=== PATIENT | female | born 1990 | race Caucasian/White ===

== ENCOUNTER 2017-11-08 12:08 | Emergency (ER) ==
[2017-11-08 12:13] VITALS: BP 180/158; TEMP 97.9; BMI 28.0
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
[2017-11-08] MEDS ORDERED: CATAPRES PO STA (13:16)
[2017-11-08] MEDS ORDERED: ZESTORETIC 20-12.5 MG TAB PO STA (13:41)
--- NOTE | 2017-11-08 13:46 | DI ---
Exam: Single x-ray of the chest. Comparison: CTA chest performed 06/15/2015. Reason for exam: Hypertension. FINDINGS: No pneumothorax, pleural effusion, or focal consolidation. The cardiac silhouette is not enlarged. The imaged osseous structures appear grossly unremarkable without acute fracture. Impression: No acute cardiopulmonary process.
== END 2017-11-08 17:44 | disposition home or self-care (01) ==
LOC: ED 12:08
DX: I10 Essential (primary) hypertension (principal); R74.8 Abnormal levels of other serum enzymes; I51.7 Cardiomegaly; R79.89 Other specified abnormal findings of blood chemistry; R51 Headache; R42 Dizziness and giddiness; I50.9 Heart failure, unspecified; F17.210 Nicotine dependence, cigarettes, uncomplicated
CPT/HCPCS: 36415; 80053; 80306; 81001; 83880; 84484; 85025; 93005; 93010; 99283

== ENCOUNTER 2018-02-07 09:48 | Emergency (ER) ==
[2018-02-07] MEDS ORDERED: ZOFRAN 4 MG/2 ML IVP STA (09:56)
[2018-02-07] MEDS ORDERED: SODIUM CHLORIDE 1,000 ML IV STA (09:56)
[2018-02-07 09:58] VITALS: TEMP 97.1; BMI 25.7
[2018-02-07] MEDS ORDERED: POTASSIUM CHLORIDE PREMIX RUN 10 MEQ in PREMIX 100 ML WATER 1 BAG IV STA (11:21)
[2018-02-07] MEDS ORDERED: TRANDATE IVP STA ×2 (11:22→12:23)
[2018-02-07] MEDS ORDERED: POTASSIUM CHLORIDE PREMIX RUN 100 ML IV ONE (11:26)
--- NOTE | 2018-02-07 11:31 | CT ---
EXAM: CT of the chest without contrast History: Coughing and vomiting. Comparison: CT abdomen pelvis 02/07/2018, chest CT 06/15/2015 Technique: Multiplanar CT images through the thorax were obtained without the administration of IV c ontrast Findings: Heart size is normal. No pericardial effusion. No thoracic aortic aneurysm. No patholog ically enlarged thoracic lymph nodes. No consolidation. No pleural fluid and no pneumothorax. No angel ng masses or lung nodules. For details in the upper abdomen, please see dedicated CT abdomen pelvis done on the same day. No ac tianna osseous abnormalities. Impression: No acute intrathoracic process.
--- NOTE | 2018-02-07 11:44 | CT ---
EXAM: CT Abdomen without contrast. CT Pelvis without contrast. HISTORY: Abdominal pain. Intractable vomiting. COMPARISON: 06/15/2015. TECHNIQUE: Multiple axial images of the abdomen and pelvis were obtained without intravenous contras t. Images were reformatted in the sagittal and coronal plane. FINDINGS: Please note that evaluation of the abdominal and pelvic structures is limited due to lack of intravenous contrast. The lung bases are clear and the. The osseous structures are within normal limits for the patient's age. Gallbladder is absent. The liver, pancreas, spleen, adrenal glands, and kidneys demonstrate normal c ontour. No calcified renal stones or hydronephrosis detected. There is mild fat stranding surrounding the descending colon on axial images of the 45-49 and coronal images 26. 30 without wall thickening. Otherwise, the bowel is normal in course and caliber withou t evidence for obstruction or inflammatory process index is normal. Benign 1.7 x 1.3 cm left lateral peritoneal cyst on axial image 55 is stable. Urinary bladder is normal. Uterus demonstrates normal contour. Phleboliths seen in the pelvis. No free fluid or free air identified. Small fat-containi ng umbilical hernia is present. IMPRESSION: Mild ascending colitis.
--- NOTE | 2018-02-07 11:50 | CT ---
EXAM: CT of the head without contrast History: Headache. Technique: Multiplanar CT images through the head were obtained without the administration of IV con trast Findings: The visualized paranasal sinuses and mastoid air cells are clear in general. No acute prateek varial abnormalities. Intracranially the ventricular and cisternal spaces are normal in size, shape and configuration for a patient of this age. No dominant mass or midline shift. No hydrocephalous. No acute intracranial hemorrhage or abnormal extraaxial fluid collections. Impression: No acute intracranial process.
--- NOTE | 2018-02-07 12:35 | ED.PDOC ---
General ED Provider: Dr. MAYANK BENNETT Chief Complaint: Nausea/Vomiting Stated Complaint: nausea, vomiting, abdominal pain Time Seen by Physician: 09:53 (seen with nurses at bedside at all time neena and SHREE CAMILO ) Mode of Arrival: Wheelchair Information Source: Patient Exam Limitations: No limitations Referred to ED by: Other (HAS BEEN OFF MEDS AND NOT SEEN AN MD IN ALONG TIME ) Nursing and Triage Documentation Reviewed and Agree: Yes Does patient meet sepsis criteria?: No System Inflammatory Response Syndrome: Not Applicable Sepsis Protocol: For patient's 13 years and over: Temp is 96.8 and below OR 101 and greater Pulse >90 BPM Resp >20/minute Acutely Altered Mental Status Are patient's symptoms suggestive of a new infection, such as: -Pneumonia -Skin, Soft Tissue -Endocarditis -UTI -Bone, Joint Infection -Implantable Device -Acute Abdominal Infection -Wound Infection -Meningitis -Blood Stream Catheter Infection -Unknown GI Complaint Exam - Vomiting/Diarrhea Complaint/Exam Onset/Duration: 2 DAYS AGO Symptoms Are: Still present (INTERMS OF PROFOUND NAUSEA BUT NO VOMITING IN ED) Episodes of Vomiting over last 24 Hours: 10 Episodes of Diarrhea Over Last 24 Hours: 0 Initial Severity: Moderate Current Severity: None Character of Vomiting: Reports: Non-bilious Aggravating: Reports: None Alleviating: Reports: None Associated Signs and Symptoms: Reports: Abdominal pain, Cramping. Denies: Dizziness, Light-headedness, Melena, Hematemesis, Fever Last Oral Intake: THIS AM BUT VOMITED Last Bowel Movement: 1 DAY AGO Non-GI Risk Factors: Reports: Vomiting due to cardiac (EKG CHANES NOTED ST DEPRESSION 4,5,6, HIGH BLOOD PRESSURE SYSTOLIC IN 200'S) Surgical Obstruction Risk Factors: Reports: None Related Surgical History: Reports: Cholecystectomy Abdominal Findings: Absent: Abdominal distention, Unequal femoral pulses, Rebound tenderness, Peritoneal signs, McBurney's Point tender, CVA Tenderness, Hernia, Inguinal swelling Kussmaul Respirations Present: No Differential Diagnoses: Other (HYPERTENSIVE URGENCIES ) Review of Systems - Review Of Systems Constitutional: Reports: Malaise Eyes: Reports: No symptoms Ears, Nose, Mouth, Throat: Reports: No symptoms Respiratory: Reports: No symptoms Cardiac: Reports: No symptoms GI: Reports: Abdominal pain (EPIGASTRIC), Nausea, Poor appetite : Reports: No symptoms Musculoskeletal: Reports: No symptoms Skin: Reports: No symptoms Neurological: Reports: No symptoms Endocrine: Reports: No symptoms Hematologic/Lymphatic: Reports: No symptoms All Other Systems: Reviewed and Negative Past Medical History - Past Medical History Previously Healthy: No (HTN, Meth abuse, CHF) Endocrine: Reports: None Cardiovascular: Reports: Hypertension, CHF Respiratory: Reports: None Hematological: Reports: None Gastrointestinal: Reports: Other (HEP C POSTIVE ) Genitourinary: Reports: None Neuro/Psych: Reports: Depression, PTSD, Other (poisoning with rat poison in past ) Musculoskeletal: Reports: None Cancer: Reports: None Last Menstrual Period: 1 week ago - Surgical History General Surgical History: Reports: None - Family History Family History: Reports: Hypertension - Social History Smoking Status: Current every day smoker, Light tobacco smoker (FORMER IVDA / HEP C POSITIVE) Hx Substance Use: Yes (occ marijuana) Alcohol Screening: None Physical Exam - Physical Exam Appearance: Ill-appearing Ill-appearing: Moderate Eyes: BRAULIO, EOMI, Conjunctiva clear ENT: Dry mucosa Respiratory: Airway patent, Breath sounds clear, Breath sounds equal, Respirations nonlabored Cardiovascular: RRR, Pulses normal, No rub, No murmur GI/: Soft, Nontender, No masses, Bowel sounds normal, No Organomegaly Musculoskeletal: Normal strength, ROM intact, No edema, No calf tenderness Skin: Warm, Dry, Normal color Neurological: Sensation intact, Motor intact, Reflexes intact, Cranial nerves intact, Alert, Oriented Psychiatric: Affect appropriate, Mood appropriate Interpretation - Radiology Interpretation Radiology Interpretation By: Radiologist Radiology Results: No acute changes Exam Interpreted: CT Scan - Rubber Tester Rate: Normal Rhythm: Sinus Ectopy: None - EKG Interpretation Rate: Normal Rhythm: Sinus Ectopy: None [place]: NL (LVH, ST DEPRESSION 5, 6 AND III, AVF , BI ATRIAL ENLARGMENT, IFEROLATERAL WALL ISCHEMIA QT PROLONGATION) Time of EKG #2: 12:43 Rate: Normal Rhythm: Sinus Ectopy: None [place]: [place] (INF/LATERAL WALL ISCHEMIA NEW T WAVE INVERSION INV4) Procedures - IV/Art Line Insertion Location: LEFT E/J Type of Line: External Jugular Invasive Line/IV Catheter Gauge: 18 Number of Attempts: 1 (ONE ATTEMPT BY RAFATI LINE WORKING WELL) Blood Return Positive: Yes Invasive Line/IV Flushes Without Difficulty: Yes Re-Evaluation - Re-Evaluation Time of Re-Evaluation: 10:00 Status: Improved Vital Signs Stable: Yes Pain Level: 0 Appearance: NAD Lungs: Clear Skin: Warm and Dry Neuro: Alert and Oriented X3 CV: RRR (NO FURTHER VOMITING BUT B/P IS STILL HIGH) - Re-Evaluation Time of Re-Evaluation: 12:38 Status: Improved Vital Signs Stable: Yes (EXCEPT FOR B/P 203/131) Pain Level: 0 Appearance: NAD Skin: Warm and Dry Neuro: Alert and Oriented X3 CV: RRR Physician Notification - Case Discussed Physician Notified: CONOR BURCIAGA Time of Notification: 13:12 (TRANSFER ) Critical Care Note - Critical Care Note Total Time (mins): 120 (HYPOKALEMIA, QT PROLONGATION ISCHEMIA , WILL TRANSFER ) Course - Course Hematology/Chemistry: 02/07/18 10:40 02/07/18 10:40 Orders, Labs, Meds: Lab Review 02/07/18 02/07/18 02/07/18 10:40 10:40 10:40 WBC 10.24 H RBC 5.77 H Hgb 13.3 Hct 42.2 MCV 73.1 L MCH 23.1 L MCHC 31.5 L RDW Coeff of Anastasia 15.1 H Plt Count 287 Immature Gran % (Auto) 0.2 Neut % (Auto) 85.2 Lymph % (Auto) 9.4 L [place] % (Auto) 4.7 Eos % (Auto) 0.2 Baso % (Auto) 0.3 Immature Gran # (Auto) 0.0 Neut # (Auto) 8.7 H Lymph # (Auto) 1.0 [place] # (Auto) 0.5 Eos # (Auto) 0.0 Baso # (Auto) 0.0 Sodium 138 Potassium 2.8 L Chloride 100 Carbon Dioxide 26 Anion Gap 14.8 BUN 11 Creatinine 0.80 Estimated GFR (MDRD) 85.00 BUN/Creatinine Ratio 13.75 Glucose 102 Calcium 9.8 Total Bilirubin 1.1 AST 46 H ALT 43 Alkaline Phosphatase 106 H Total Protein 7.5 Albumin 3.5 Globulin 4.0 Albumin/Globulin Ratio 0.88 Amylase 51 Lipase 25 Serum , Qual Negative Orders Category Date Time Status EKG-(ED ONLY) Stat CARDIO 02/07/18 09:55 Ordered EKG-(ED ONLY) Stat CARDIO 02/07/18 12:27 Ordered NPO REMINDER: IMAGING ONCE CARE 02/07/18 09:56 Completed NPO REMINDER: IMAGING ONCE CARE 02/07/18 09:57 Completed ED IV/MEDIPORT/POWERPORT .ONCE EMERGENCY 02/07/18 09:55 Active AMYLASE Stat LAB 02/07/18 10:40 Completed CBC W/ AUTO DIFF Stat LAB 02/07/18 10:40 Completed COMPREHENSIVE METABOLIC PANEL Stat LAB 02/07/18 10:40 Completed CREATINE KINASE Stat LAB 02/07/18 12:27 Ordered LIPASE Stat LAB 02/07/18 10:40 Completed SERUM Stat LAB 02/07/18 10:40 Completed TROPONIN I Stat LAB 02/07/18 12:27 Ordered URINALYSIS C & S IF INDICATED Stat LAB 02/07/18 09:54 Uncollected URINE DRUG SCREEN (RAPID FOR ED) [DRUG SCREEN, URINE, LAB 02/07/18 12:26 Uncollected RAPID] Stat URINE DRUG SCREEN (RAPID FOR ED) [DRUG SCREEN, URINE, LAB 02/07/18 12:29 Uncollected RAPID] Stat 0.9 % Sodium Chloride [Saline Flush] MEDS 02/07/18 09:54 Active 1 syr IVF PRN PRN Labetalol HCl [Trandate] MEDS 02/07/18 11:22 Stat 20 mg IVP ONCE STA Labetalol HCl [Trandate] MEDS 02/07/18 12:23 Stat 40 mg IVP ONCE STA Ondansetron HCl/Pf [Zofran 4 mg/2 ml] MEDS 02/07/18 09:56 Discontinued 8 mg IVP ONCE STA Potassium Chloride [Potassium Chloride Premix Run] 10 MEDS 02/07/18 11:21 Ordered meq Premix 100 ml Water 1 bag IV ONCE Potassium Chloride [Potassium Chloride Premix Run] 100 MEDS 02/07/18 11:26 Discontinued ml IV .STK-MED Sodium Chloride 0.9% [Sodium Chloride] 1,000 ml MEDS 02/07/18 09:[address] ABDOMEN/PELVIS WO CONTRAST Stat RADS 02/07/18 10:[address] CHEST W/O CONTRAST Stat RADS 02/07/18 10:[address] HEAD W/O CONTRAST Stat RADS 02/07/18 11:21 Ordered Medications Generic Name Dose Route Start Last Admin Trade Name Freq PRN Reason Stop Dose Admin Sodium Chloride 1 syr 02/07/18 09:54 02/07/18 10:16 Saline Flush IVF 1 syr PRN PRN Administration To flush IV Discontinued Medications Generic Name Dose Route Start Last Admin Trade Name Freyeny PRN Reason Stop Dose Admin Sodium Chloride 1,000 mls @ 1,000 mls/hr 02/07/18 09:56 02/07/18 10:18 Sodium Chloride IV 02/07/18 10:55 1,000 mls/hr BOLUS STA Administration Potassium Chloride 10 meq/ 100 mls @ 100 mls/hr 02/07/18 11:21 02/07/18 11:44 Sterile Water IV 02/07/18 12:20 100 mls/hr ONCE STA Administration Labetalol HCl 20 mg 02/07/18 11:22 02/07/18 11:43 Trandate IVP 02/07/18 11:23 20 mg ONCE STA Administration Labetalol HCl 40 mg 02/07/18 12:23 02/07/18 13:03 Trandate IVP 02/07/18 12:24 40 mg ONCE STA Administration Ondansetron HCl 8 mg 02/07/18 09:56 02/07/18 10:10 Zofran 4 Mg/2 Ml IVP 02/07/18 09:57 8 mg ONCE STA Administration Vital Signs: Temp Pulse Resp BP Pulse Ox 02/07/18 11:18 98 H 16 219/133 H 99 02/07/18 09:49 97.1 F L 135 H 20 180/120 H 100 Departure - Departure Time of Disposition: 14:00 Disposition: TSF SHORT-TRM HOSP Discharge Problem: Nausea, Vomiting, Hypertensive urgency, Hypokalemia Instructions: Hypertensive Crisis (ED), Hypertension (ED) Condition: Good Pt referred to PMD for follow-up: Yes IPMP verified?: No Additional Instructions: Please call your Family Physician as soon as possible to schedule a follow-up appointment. Allergies/Adverse Reactions: Allergies divalproex sodium [From Depakote] Adverse Reaction (Verified 02/07/18 10:13) tramadol [From Ultram] Adverse Reaction (Verified 02/07/18 10:13) vancomycin Adverse Reaction (Verified 02/07/18 10:13) Home Medications: Ambulatory Orders 1 [No Reported Medications] 02/07/18 Disposition Discussed With: Patient
[2018-02-07] MEDS ORDERED: CARDENE-NACL 20 MG/200 ML SOLN 20 MG in PREMIX 200ML 0.86% SODIUM CHLORIDE 1 BAG IV SCH (13:30)
[2018-02-07 13:57] VITALS: BP 180/124
== END 2018-02-07 13:58 | disposition short-term general hospital (02) ==
LOC: ED 09:48
DX: E87.6 Hypokalemia (principal); R11.2 Nausea with vomiting, unspecified; I16.0 Hypertensive urgency; R10.9 Unspecified abdominal pain; Z91.14 Patient's other noncompliance with medication regimen; F17.210 Nicotine dependence, cigarettes, uncomplicated
CPT/HCPCS: 36415; 80053; 80306; 81001; 82150; 82550; 83690; 84484; 84703; 85025; 87086; 87186; 93005; 93010; 96361; 96365; 96366; 96375; 96376; 99285

== ENCOUNTER 2018-02-07 14:16 | Outpatient (CLI) ==
[2018-02-07 09:58] VITALS: BMI 25.7
== END 2018-02-07 14:17 | disposition home or self-care (01) ==
LOC: AMBL 14:16
PROVIDERS: ATTEND Internal Medicine
DX: I16.0 Hypertensive urgency (principal)

== ENCOUNTER 2018-03-16 04:49 | Emergency (ER) ==
[2018-03-16 04:57] VITALS: TEMP 97.4; BMI 27.4
[2018-03-16] MEDS ORDERED: CATAPRES PO STA (05:05)
[2018-03-16] MEDS ORDERED: ZESTRIL PO STA (05:05)
[2018-03-16] MEDS ORDERED: APRESOLINE PO STA (05:06)
[2018-03-16] MEDS ORDERED: LASIX IM STA (05:08)
[2018-03-16] MEDS ORDERED: NORCO 5-325 PO STA (05:21)
[2018-03-16 05:27] LABS: URINE PREGNANCY TEST NEGATIVE (NEGATIVE)
[2018-03-16] MEDS ORDERED: TRANDATE IVP STA (06:19)
--- NOTE | 2018-03-16 06:43 | ED.PDOC ---
General ED Provider: Dr. SAUL LINTON-ER Chief Complaint: Hypertension Stated Complaint: i have high blood pressure and have been out of my meds for a few days--my head hurts and franki had a stroke before Time Seen by Physician: 05:00 Mode of Arrival: Walk-In Information Source: Patient Exam Limitations: No limitations Nursing and Triage Documentation Reviewed and Agree: Yes Does patient meet sepsis criteria?: No System Inflammatory Response Syndrome: Not Applicable Sepsis Protocol: For patient's 13 years and over: Temp is 96.8 and below OR 101 and greater Pulse >90 BPM Resp >20/minute Acutely Altered Mental Status Are patient's symptoms suggestive of a new infection, such as: -Pneumonia -Skin, Soft Tissue -Endocarditis -UTI -Bone, Joint Infection -Implantable Device -Acute Abdominal Infection -Wound Infection -Meningitis -Blood Stream Catheter Infection -Unknown Cardiovascular Complaint Exam - Hypertension Complaint/Exam Onset/Duration: 1-2 days ago Symptoms Are: Still present Timing: Constant Reported B/P Prior to Arrival: 240/130 Aggravating: Reports: None Alleviating: Reports: None Associated Signs and Symptoms: Reports: Anxiety. Denies: Chest pain, Vision changes, Recent stress, Headache, Numbness, Tingling, Weakness, Dizziness, Short of air, Swelling Related History: Reports: Rx noncompliance Cardiac Risk Factors: Reports: Hypertension Recent Change in Medications: No A/V Nicking: No Papilledema Present: No JVD Present: No Carotid Bruit Present: No Femoral Pulses Bounding: No Differential Diagnoses: Hypertension Review of Systems - Review Of Systems Constitutional: Reports: No symptoms Eyes: Reports: No symptoms Ears, Nose, Mouth, Throat: Reports: No symptoms Respiratory: Reports: No symptoms Cardiac: Reports: No symptoms GI: Reports: No symptoms : Reports: No symptoms Musculoskeletal: Reports: No symptoms Skin: Reports: No symptoms Neurological: Reports: Headache Endocrine: Reports: No symptoms Hematologic/Lymphatic: Reports: No symptoms All Other Systems: Reviewed and Negative Past Medical History - Past Medical History Previously Healthy: No (HTN, Meth abuse, CHF) Endocrine: Reports: None Cardiovascular: Reports: Hypertension, CHF Respiratory: Reports: None Hematological: Reports: None Gastrointestinal: Reports: Other (HEP C POSTIVE ) Genitourinary: Reports: None Neuro/Psych: Reports: Depression, PTSD, Other (poisoning with rat poison in past ) Musculoskeletal: Reports: None Cancer: Reports: None Last Menstrual Period: 2 weeks - Surgical History General Surgical History: Reports: None - Family History Family History: Reports: Hypertension - Social History Smoking Status: Current every day smoker, Light tobacco smoker Hx Substance Use: Yes (occ marijuana) Alcohol Screening: None - Immunizations Tetanus Shot up to Date: Yes Physical Exam - Physical Exam Appearance: Well-appearing Pain Distress: Mild Eyes: BRAULIO, EOMI, Conjunctiva clear ENT: Ears normal, Nose normal, Oropharynx normal Neck: Supple Respiratory: Airway patent, Breath sounds clear, Breath sounds equal, Respirations nonlabored Cardiovascular: RRR, Pulses normal, No rub, No murmur GI/: Soft, Nontender, No masses, Bowel sounds normal, No Organomegaly Musculoskeletal: Normal strength, ROM intact, No edema, No calf tenderness Skin: Warm, Dry, Normal color Neurological: Sensation intact, Motor intact, Reflexes intact, Cranial nerves intact, Alert, Oriented Psychiatric: Affect appropriate, Mood appropriate Interpretation - Yarding Engineer Time of Yarding Engineer Interpretation: 06:44 Rate: Normal Rhythm: Sinus Ectopy: None Re-Evaluation - Re-Evaluation Time of Re-Evaluation: 06:44 Status: Improved (bp 130/90---ortega resolved--no chest pain) Vital Signs Stable: Yes Pain Level: 0 Appearance: NAD Lungs: Clear Skin: Warm and Dry Neuro: Alert and Oriented X3 CV: RRR Critical Care Note - Critical Care Note Total Time (mins): 0 Course - Course Hematology/Chemistry: 03/16/18 05:20 03/16/18 05:20 Orders, Labs, Meds: Lab Review 03/16/18 03/16/18 03/16/18 05:10 05:10 05:20 WBC 10.38 H RBC 6.24 H Hgb 14.7 Hct 46.9 MCV 75.2 L MCH 23.6 L MCHC 31.3 L RDW Coeff of Anastasia 18.6 H Plt Count 326 Immature Gran % (Auto) 0.1 Neut % (Auto) 70.4 Lymph % (Auto) 19.9 Posey % (Auto) 6.0 Eos % (Auto) 3.2 Baso % (Auto) 0.4 Immature Gran # (Auto) 0.0 Neut # (Auto) 7.3 H Lymph # (Auto) 2.1 Posey # (Auto) 0.6 Eos # (Auto) 0.3 Baso # (Auto) 0.0 Sodium Potassium Chloride Carbon Dioxide Anion Gap BUN Creatinine Estimated GFR (MDRD) BUN/Creatinine Ratio Glucose Calcium Total Bilirubin AST ALT Alkaline Phosphatase Total Protein Albumin Globulin Albumin/Globulin Ratio Urine Color Yellow Urine Clarity Clear Urine pH 7.0 Ur Specific [place] 1.020 Urine Protein 3+ Urine Glucose (UA) Negative Urine Ketones Negative Urine Blood Trace-intact Urine Nitrite Negative Urine Bilirubin Negative Urine Urobilinogen 0.2 Ur Leukocyte Esterase Negative Urine Microscopic RBC 2-5 Urine Microscopic WBC 5-10 Ur Squamous Epith Cells 10-20 Urine Bacteria 1+ Urine Mucus Trace Urine Test Negative 03/16/18 05:20 WBC RBC Hgb Hct MCV MCH MCHC RDW Coeff of Anastasia Plt Count Immature Gran % (Auto) Neut % (Auto) Lymph % (Auto) Posey % (Auto) Eos % (Auto) Baso % (Auto) Immature Gran # (Auto) Neut # (Auto) Lymph # (Auto) Posey # (Auto) Eos # (Auto) Baso # (Auto) Sodium 138.2 Potassium 3.57 Chloride 104.3 Carbon Dioxide 24.2 Anion Gap 13.27 BUN 9.9 Creatinine 0.83 Estimated GFR (MDRD) 81.00 BUN/Creatinine Ratio 11.92 Glucose 123.2 H Calcium 9.69 Total Bilirubin 0.37 AST 51.0 H ALT 29.8 Alkaline Phosphatase 108.5 Total Protein 8.69 H Albumin 4.65 Globulin 4.04 Albumin/Globulin Ratio 1.15 Urine Color Urine Clarity Urine pH Ur Specific [place] Urine Protein Urine Glucose (UA) Urine Ketones Urine Blood Urine Nitrite Urine Bilirubin Urine Urobilinogen Ur Leukocyte Esterase Urine Microscopic RBC Urine Microscopic WBC Ur Squamous Epith Cells Urine Bacteria Urine Mucus Urine Test Orders Category Date Time Status Yarding Engineer [ED DELIVERY LEAD APPLIED] .ONCE EMERGENCY 03/16/18 05:07 Active IV [ED IV/MEDIPORT/POWERPORT] .ONCE EMERGENCY 03/16/18 06:19 Active CBC W/ AUTO DIFF Stat LAB 03/16/18 05:20 Completed CMP [COMPREHENSIVE METABOLIC PANEL] Stat LAB 03/16/18 05:20 Completed URINALYSIS C & S IF INDICATED Stat LAB 03/16/18 05:10 Completed URINE CULTURE Stat LAB 03/16/18 05:10 Received URINE Stat LAB 03/16/18 05:10 Completed 0.9 % Sodium Chloride [Saline Flush] MEDS 03/16/18 06:19 Ordered 1 syr IVF PRN PRN Clonidine HCl [Catapres] MEDS 03/16/18 05:05 Discontinued 0.2 mg PO ONCE STA Furosemide [Lasix] MEDS 03/16/18 05:08 Discontinued 40 mg IM ONCE STA Hydralazine HCl [Apresoline] MEDS 03/16/18 05:06 Stop Req 50 mg PO ONCE STA Hydrocodone Bit/Acetaminophen [[place] 5-325] MEDS 03/16/18 05:21 Discontinued 1 tab PO ONCE STA Labetalol HCl [Trandate] MEDS 03/16/18 06:19 Discontinued 20 mg IVP ONCE STA Lisinopril [Zestril] MEDS 03/16/18 05:05 Discontinued 10 mg PO ONCE STA Medications Generic Name Dose Route Start Last Admin Trade Name Freq PRN Reason Stop Dose Admin Sodium Chloride 1 syr 03/16/18 06:19 03/16/18 06:37 Saline Flush IVF 1 syr PRN PRN Administration To flush IV Discontinued Medications Generic Name Dose Route Start Last Admin Trade Name Freq PRN Reason Stop Dose Admin Hydrocodone Bitart/Acetaminophen 1 tab 03/16/18 05:21 03/16/18 05:31 [place] 5-325 PO 03/16/18 05:22 1 tab ONCE STA Administration Clonidine 0.2 mg 03/16/18 05:05 03/16/18 05:26 Catapres PO 03/16/18 05:06 0.2 mg ONCE STA Administration Furosemide 40 mg 03/16/18 05:08 03/16/18 05:32 Lasix IM 03/16/18 05:09 40 mg ONCE STA Administration Hydralazine HCl 50 mg 03/16/18 05:06 03/16/18 05:26 Apresoline PO 03/16/18 05:07 50 mg ONCE STA Administration Labetalol HCl 20 mg 03/16/18 06:19 03/16/18 06:32 Trandate IVP 03/16/18 06:20 20 mg ONCE STA Administration Lisinopril 10 mg 03/16/18 05:05 03/16/18 05:26 Zestril PO 03/16/18 05:06 10 mg ONCE STA Administration she declines ekg and ct head "they cost too much" Vital Signs: Temp Pulse Resp BP Pulse Ox 03/16/18 04:51 97.4 F L 115 H 20 242/168 H 97 TORI Risk Score TORI Risk Score: Risk Score Odds of by 30D 0 0.1 (0.1-0.2) 1 0.3 (0.2-0.3) 2 0.4 (0.3-0.5) 3 0.7 (0.6-0.9) 4 1.2 (1.0-1.5) 5 2.2 (1.9-2.6) 6 3.0 (2.5-3.6) 7 4.8 (3.8-6.1) Departure - Departure Time of Disposition: 06:45 Disposition: HOME SELF-CARE Discharge Problem: HTN (hypertension) Qualifiers: Hypertension type: unspecified Qualified Code(s): I10 - Essential (primary) hypertension Proteinuria Qualifiers: Proteinuria type: unspecified Qualified Code(s): R80.9 - Proteinuria, unspecified Instructions: Hypertensive Crisis (ED) Condition: Fair Pt referred to PMD for follow-up: Yes IPMP verified?: No Additional Instructions: resume bp meds from home--talk to pcp about getting 24hr urine and ?referral to nephrology Allergies/Adverse Reactions: Allergies divalproex sodium [From Depakote] Adverse Reaction (Verified 02/07/18 10:13) tramadol [From Ultram] Adverse Reaction (Verified 02/07/18 10:13) vancomycin Adverse Reaction (Verified 02/07/18 10:13) Home Medications: Ambulatory Orders Clonidine HCl 0.2 mg PO BID 03/16/18 Hydrochlorothiazide 12.5 mg PO DAILY 03/16/18 Lisinopril 10 mg PO DAILY 03/16/18
--- NOTE | 2018-03-16 07:36 | CT ---
EXAM: CT Head HISTORY: Headache, elevated blood pressure COMPARISON: 02/07/2018 TECHNIQUE: CT head performed without contrast FINDINGS: There is no mass effect, midline shift, or intracranial hemmorhage. Keane white differenti ation is preserved. There is no extra-axial collection. The ventricles, sulci, and basal cisterns a re patent and symmetric. Mild prominence of the basilar tip on image 11. There is no depressed shreyas rial fracture. The mastoid air cells are clear. The visualized paranasal sinuses are clear. IMPRESSION: 1. No acute intracranial abnormality. 2. Mild prominence of the basilar tip may relate to volume averaging artifact; however, aneurysm can not be excluded. Recommend correlation with CT angiography head. Findings called to Dr. Johnston 7:30 a.m. 02/13/2018.
[2018-03-16 09:24] VITALS: BP 114/75
== END 2018-03-16 09:10 | disposition home or self-care (01) ==
LOC: ED 04:49
DX: I16.9 Hypertensive crisis, unspecified (principal); R80.9 Proteinuria, unspecified; R51 Headache; Z86.73 Personal history of transient ischemic attack (TIA), and cerebral infarction without residual deficits; Z91.14 Patient's other noncompliance with medication regimen; F17.210 Nicotine dependence, cigarettes, uncomplicated
CPT/HCPCS: 36415; 80053; 81001; 81025; 85025; 87086; 93005; 93010; 96372; 96374; 99283

== ENCOUNTER 2018-04-22 09:27 | Emergency (ER) ==
[2018-04-22 09:31] VITALS: BP 159/121; TEMP 97.5; BMI 29.1
[2018-04-22] MEDS ORDERED: GI COCKTAIL PO STA (09:43)
--- NOTE | 2018-04-22 09:46 | ED.PDOC ---
General ED Provider: Dr. SAUL PEREZ MD Chief Complaint: Respiratory Complaint Stated Complaint: hurts when i breath in and in my chest abdomen area3 Time Seen by Physician: 09:45 Mode of Arrival: Walk-In Information Source: Patient Referred to ED by: Other Nursing and Triage Documentation Reviewed and Agree: Yes Does patient meet sepsis criteria?: No If yes, has appropriate treatment been initiated?: Yes System Inflammatory Response Syndrome: Not Applicable Sepsis Protocol: For patient's 13 years and over: Temp is 96.8 and below OR 101 and greater Pulse >90 BPM Resp >20/minute Acutely Altered Mental Status Are patient's symptoms suggestive of a new infection, such as: -Pneumonia -Skin, Soft Tissue -Endocarditis -UTI -Bone, Joint Infection -Implantable Device -Acute Abdominal Infection -Wound Infection -Meningitis -Blood Stream Catheter Infection -Unknown Respiratory Complaint Exam - Respiratory Complaint/Exam Onset/Duration: few days Symptoms Are: Still present Timing: Intermittent Initial Severity: Mild Current Severity: Moderate Location: Chest Aggravating: Reports: Deep breaths Alleviating: Reports: Upright position History of Healthcare-Acquired Pneumonia: No Related Surgical History: Reports: None Pulmonary Embolism Risk Factors: Smoking Cardiac Risk Factors: Reports: Hypertension Tuberculosis Risk Factors: Reports: None Status Asthmaticus Risk Factors: Reports: None Home Oxygen Use: No Recent Stress Test: No Recent Echo/LV Function: No Current Antibiotic Use: No Current Asthma Medication Use: No Respiratory Distress: Mild Dysphagia Present: No Stridor Present: No JVD Present: No Accessory Muscle Use: No Retractions: Not Present Diminished Breath Sounds: No Kussmaul Respirations: No Differential Diagnoses: Asthma, Chest Wall Pain, Lower Resp. Infection Non-Traumatic Chest Pain Syncope: EKG Performed Review of Systems - Review Of Systems Constitutional: Reports: No symptoms Eyes: Reports: No symptoms Ears, Nose, Mouth, Throat: Reports: No symptoms Respiratory: Reports: No symptoms Cardiac: Reports: No symptoms GI: Reports: No symptoms : Reports: No symptoms Musculoskeletal: Reports: No symptoms Skin: Reports: No symptoms Neurological: Reports: No symptoms Endocrine: Reports: No symptoms Hematologic/Lymphatic: Reports: No symptoms All Other Systems: Reviewed and Negative Past Medical History - Past Medical History Previously Healthy: No (HTN, Meth abuse, CHF) Endocrine: Reports: None Cardiovascular: Reports: Hypertension, CHF Respiratory: Reports: None Hematological: Reports: None Gastrointestinal: Reports: Other (HEP C POSTIVE ) Genitourinary: Reports: None Neuro/Psych: Reports: Depression, PTSD, Other (poisoning with rat poison in past ) Musculoskeletal: Reports: None Cancer: Reports: None Last Menstrual Period: now - Surgical History General Surgical History: Reports: None - Family History Family History: Reports: Hypertension - Social History Smoking Status: Current every day smoker, Light tobacco smoker Hx Substance Use: Yes (occ marijuana) Alcohol Screening: None Physical Exam - Physical Exam Appearance: Well-appearing, No pain distress, Well-nourished, Thin Ill-appearing: Mild Pain Distress: None Eyes: BRAULIO ENT: Ears normal, Nose normal, Oropharynx normal Respiratory: Airway patent, Breath sounds clear, Breath sounds equal, Respirations nonlabored Cardiovascular: RRR, Pulses normal, No rub, No murmur GI/: Soft, Nontender, No masses, Bowel sounds normal, No Organomegaly Musculoskeletal: Normal strength, ROM intact, No edema, No calf tenderness Skin: Warm, Dry, Normal color Neurological: Sensation intact, Motor intact, Reflexes intact, Cranial nerves intact, Alert, Oriented Psychiatric: Affect appropriate, Mood appropriate Critical Care Note - Critical Care Note Total Time (mins): 0 Course - Course Orders, Labs, Meds: Orders Category Date Time Status EKG-(ED ONLY) Stat CARDIO 04/22/18 09:41 Ordered Ketorolac Tromethamine [Toradol] MEDS 04/22/18 10:52 Discontinued 60 mg IM ONCE STA Ketorolac Tromethamine [Toradol] MEDS 04/22/18 11:54 Discontinued 60 mg IM ONCE STA Lisinopril [Zestril] MEDS 04/22/18 09:50 Discontinued 10 mg PO ONCE STA Mag-Al Plus//Lidocaine [Gi Cocktail] MEDS 04/22/18 09:43 Discontinued 30 ml PO ONCE STA CXR [CHEST, 2 VIEWS PA & LAT] Stat RADS 04/22/18 09:42 Completed RIBS, UNILATERAL LEFT Stat RADS 04/22/18 11:54 Ordered Medications Discontinued Medications Generic Name Dose Route Start Last Admin Trade Name Freq PRN Reason Stop Dose Admin Al Hydroxide/Mg Hydroxide 30 ml 04/22/18 09:43 04/22/18 09:56 Gi Cocktail PO 04/22/18 09:44 30 ml ONCE STA Administration Ketorolac Tromethamine 60 mg 04/22/18 10:52 04/22/18 11:01 Toradol IM 04/22/18 10:53 60 mg ONCE STA Administration Ketorolac Tromethamine 60 mg 04/22/18 11:54 Toradol IM 04/22/18 11:55 ONCE STA Lisinopril 10 mg 04/22/18 09:50 04/22/18 09:55 Zestril PO 04/22/18 09:51 10 mg ONCE STA Administration Vital Signs: Temp Pulse Resp BP Pulse Ox 04/22/18 09:28 97.5 F L 84 20 159/121 H 96 Departure - Departure Time of Disposition: 11:00 Disposition: HOME SELF-CARE Discharge Problem: Chest wall pain Instructions: Chest Wall Pain (ED) Condition: Stable Pt referred to PMD for follow-up: Yes IPMP verified?: No Allergies/Adverse Reactions: Allergies divalproex sodium [From Depakote] Adverse Reaction (Verified 04/22/18 09:34) tramadol [From Ultram] Adverse Reaction (Verified 04/22/18 09:34) vancomycin Adverse Reaction (Verified 04/22/18 09:34) Home Medications: Ambulatory Orders Clonidine HCl 0.2 mg PO BID 03/16/18 Hydrochlorothiazide 25 mg PO DAILY 03/16/18 Lisinopril 10 mg PO DAILY 03/16/18 Transfer Form Completed: No Disposition Discussed With: Patient
[2018-04-22] MEDS ORDERED: ZESTRIL PO STA (09:50)
--- NOTE | 2018-04-22 10:37 | DI ---
EXAM: CHEST FRONTAL AND LATERAL VIEWS HISTORY: Pain with inspiration. COMPARISON: 11/08/2017 FINDINGS: Heart size and mediastinal contour within normal limits. No acute infiltrates. Normal vascularity with no pleural fluid or pneumothorax. The bony thorax has no acute finding. IMPRESSION: No acute process.
[2018-04-22] MEDS ORDERED: TORADOL IM STA ×2 (10:52→11:54)
== END 2018-04-22 12:38 | disposition home or self-care (01) ==
LOC: ED 09:27
DX: R07.89 Other chest pain (principal); F17.210 Nicotine dependence, cigarettes, uncomplicated; I10 Essential (primary) hypertension
CPT/HCPCS: 93005; 93010; 96372; 99283

== ENCOUNTER 2018-05-07 18:03 | Inpatient (IN) ==
[2018-05-07] MEDS ORDERED: CATAPRES PO STA (18:37)
--- NOTE | 2018-05-07 18:40 | ED.PDOC ---
General ED Provider: Dr. SAUL PAVON Chief Complaint: Hypertension Stated Complaint: Headache and vomiting. Severely Elevated BP. Out of meds for a week. Missed Drs Apt and could not get refills Time Seen by Physician: 18:15 Mode of Arrival: Walk-In Information Source: Patient Exam Limitations: No limitations Nursing and Triage Documentation Reviewed and Agree: Yes Does patient meet sepsis criteria?: No System Inflammatory Response Syndrome: Not Applicable Sepsis Protocol: For patient's 13 years and over: Temp is 96.8 and below OR 101 and greater Pulse >90 BPM Resp >20/minute Acutely Altered Mental Status Are patient's symptoms suggestive of a new infection, such as: -Pneumonia -Skin, Soft Tissue -Endocarditis -UTI -Bone, Joint Infection -Implantable Device -Acute Abdominal Infection -Wound Infection -Meningitis -Blood Stream Catheter Infection -Unknown Cardiovascular Complaint Exam - Hypertension Complaint/Exam Onset/Duration: 2 days Symptoms Are: Still present Timing: Constant Reported B/P Prior to Arrival: >250/150 Aggravating: Reports: Exertion Alleviating: Reports: None Associated Signs and Symptoms: Reports: Anxiety, Recent stress, Headache, Dizziness Related History: Reports: Similar episode, Other (Hx cerebral aneurysm) Cardiac Risk Factors: Reports: Hypertension, Smoking, Elevated lipids, Family history Recent Change in Medications: Yes Carotid Bruit Present: No Femoral Pulses Bounding: No Differential Diagnoses: Hypertensive Crisis Review of Systems - Review Of Systems Constitutional: Reports: No symptoms Eyes: Reports: No symptoms Ears, Nose, Mouth, Throat: Reports: No symptoms Respiratory: Reports: No symptoms Cardiac: Reports: Lightheadedness GI: Reports: No symptoms : Reports: No symptoms Musculoskeletal: Reports: No symptoms Skin: Reports: No symptoms Neurological: Reports: Headache Endocrine: Reports: No symptoms Hematologic/Lymphatic: Reports: No symptoms All Other Systems: Reviewed and Negative Past Medical History - Past Medical History Previously Healthy: No (HTN, Meth abuse, CHF) Endocrine: Reports: None Cardiovascular: Reports: Hypertension, CHF Respiratory: Reports: None Hematological: Reports: None Gastrointestinal: Reports: Other (HEP C POSTIVE ) Genitourinary: Reports: None Neuro/Psych: Reports: Depression, PTSD, Other (poisoning with rat poison in past ) Musculoskeletal: Reports: None Cancer: Reports: None Last Menstrual Period: 3 weeks ago - Surgical History General Surgical History: Reports: None - Family History Family History: Reports: Hypertension - Social History Smoking Status: Current every day smoker, Light tobacco smoker Hx Substance Use: Yes (occ marijuana) Alcohol Screening: None Physical Exam - Physical Exam Appearance: Ill-appearing, Well-nourished Ill-appearing: Moderate Pain Distress: Severe Eyes: BRAULIO, EOMI, Conjunctiva clear ENT: Ears normal, Nose normal, Oropharynx normal Neck: Supple Respiratory: Airway patent, Breath sounds clear, Breath sounds equal, Respirations nonlabored Cardiovascular: RRR, Pulses normal, No rub, No murmur GI/: Soft, Nontender, No masses, Bowel sounds normal, No Organomegaly Musculoskeletal: Normal strength, ROM intact, No edema, No calf tenderness Skin: Warm, Dry, Normal color Neurological: Sensation intact, Motor intact, Reflexes intact, Cranial nerves intact, Alert, Oriented Psychiatric: Affect appropriate, Mood appropriate Physician Notification - Case Discussed Physician Notified: Dr Lagos hospitalist-Discussed pts HTN Crisis and tx administered Time of Notification: 19:50 (Discussed case-agrees to admit-ICU) Critical Care Note - Critical Care Note Total Time (mins): 60 Course - Course Hematology/Chemistry: 05/07/18 18:40 05/07/18 18:40 Orders, Labs, Meds: Lab Review 05/07/18 05/07/18 05/07/18 18:39 18:39 18:40 WBC 8.45 RBC 5.07 Hgb 12.7 Hct 39.8 MCV 78.5 L MCH 25.0 L MCHC 31.9 RDW Coeff of Anastasia 16.0 H Plt Count 402 Immature Gran % (Auto) 0.1 Neut % (Auto) 63.1 Lymph % (Auto) 26.5 [place] % (Auto) 8.5 Eos % (Auto) 1.2 Baso % (Auto) 0.6 Immature Gran # (Auto) 0.0 Neut # (Auto) 5.3 Lymph # (Auto) 2.2 [place] # (Auto) 0.7 Eos # (Auto) 0.1 Baso # (Auto) 0.1 Sodium Potassium Chloride Carbon Dioxide Anion Gap BUN Creatinine Estimated GFR (MDRD) BUN/Creatinine Ratio Glucose Calcium Total Bilirubin AST ALT Alkaline Phosphatase Troponin I Total Protein Albumin Globulin Albumin/Globulin Ratio Urine Color Yellow Urine Clarity Clear Urine pH 7.5 Ur Specific [place] 1.015 Urine Protein Negative Urine Glucose (UA) Negative Urine Ketones Negative Urine Blood Negative Urine Nitrite Negative Urine Bilirubin Negative Urine Urobilinogen 0.2 Ur Leukocyte Esterase Negative Urine Opiates Screen Negative Ur Oxycodone Screen Negative Urine Methadone Screen Negative Ur Propoxyphene Screen Negative Ur Barbiturates Screen Negative U Tricyclic Antidepress Negative Ur Phencyclidine Scrn Negative Ur Amphetamine Screen Positive U Methamphetamines Scrn Negative U Benzodiazepines Scrn Negative Urine Cocaine Screen Negative U Cannabinoids Screen Negative 05/07/18 18:40 WBC RBC Hgb Hct MCV MCH MCHC RDW Coeff of Anastasia Plt Count Immature Gran % (Auto) Neut % (Auto) Lymph % (Auto) [place] % (Auto) Eos % (Auto) Baso % (Auto) Immature Gran # (Auto) Neut # (Auto) Lymph # (Auto) [place] # (Auto) Eos # (Auto) Baso # (Auto) Sodium 136.6 L Potassium 3.37 L Chloride 104.1 Carbon Dioxide 26.7 Anion Gap 9.17 BUN 15.1 Creatinine 0.87 Estimated GFR (MDRD) 77.00 BUN/Creatinine Ratio 17.35 Glucose 94.3 Calcium 9.22 Total Bilirubin 0.29 AST 33.2 ALT 19.4 Alkaline Phosphatase 103.3 Troponin I 0.022 Total Protein 7.82 Albumin 4.20 Globulin 3.62 Albumin/Globulin Ratio 1.16 Urine Color Urine Clarity Urine pH Ur Specific [place] Urine Protein Urine Glucose (UA) Urine Ketones Urine Blood Urine Nitrite Urine Bilirubin Urine Urobilinogen Ur Leukocyte Esterase Urine Opiates Screen Ur Oxycodone Screen Urine Methadone Screen Ur Propoxyphene Screen Ur Barbiturates Screen U Tricyclic Antidepress Ur Phencyclidine Scrn Ur Amphetamine Screen U Methamphetamines Scrn U Benzodiazepines Scrn Urine Cocaine Screen U Cannabinoids Screen Orders Category Date Time Status EKG-(ED ONLY) Stat CARDIO 05/07/18 18:35 Completed VITAL SIGNS Q15MIN CARE 05/07/18 18:35 Active CBC W/ AUTO DIFF Stat LAB 05/07/18 18:40 Completed CMP [COMPREHENSIVE METABOLIC PANEL] Stat LAB 05/07/18 18:40 Completed TROPONIN I Stat LAB 05/07/18 18:40 Completed UA [URINALYSIS C & S IF INDICATED] Stat LAB 05/07/18 18:39 Completed URINE DRUG SCREEN (RAPID FOR ED) [DRUG SCREEN, URINE, LAB 05/07/18 18:39 Completed RAPID] Stat 0.9 % Sodium Chloride [Premix 200Ml 0.86% Sodium MEDS 05/07/18 19:00 Ordered Chloride] 1 bag Nicardipine in NaCl, Iso-Osm [Cardene-NaCl 20 mg/200 ml Soln] 20 mg IV 5 mg/hr 0.9 % Sodium Chloride [Saline Flush] MEDS 05/07/18 18:35 Ordered 1 syr IVF PRN PRN Clonidine HCl [Catapres] MEDS 05/07/18 18:37 Discontinued 0.2 mg PO ONCE STA Diazepam Syringe [Valium Syringe] MEDS 05/07/18 19:01 Discontinued 2 mg IVP ONCE STA Diazepam [Valium] MEDS 05/07/18 19:04 Discontinued 5 mg PO ONCE STA Morphine Sulfate [Morphine 4 mg/ml Syringe] MEDS 05/07/18 19:11 Discontinued 4 mg .ROUTE .STK-MED ONE Morphine Sulfate [Morphine 4 mg/ml Vial] MEDS 05/07/18 19:02 Discontinued 4 mg IVP ONCE STA Nicardipine in NaCl, Iso-Osm [Cardene-NaCl 20 mg/200 ml MEDS 05/07/18 19:09 Discontinued Soln] 200 ml IV .STK-MED Medications Generic Name Dose Route Start Last Admin Trade Name Freq PRN Reason Stop Dose Admin Nicardipine/Sodium Chloride 20 200 mls @ 50 mls/hr 05/07/18 19:00 05/07/18 19 :23 mg/ Sodium Chloride IV 5 mg/hr .Q4H ARMOND 50 mls/hr Administration Protocol 5 MG/HR Sodium Chloride 1 syr 05/07/18 18:35 05/07/18 18:42 Saline Flush IVF 1 syr PRN PRN Administration To flush IV Discontinued Medications Generic Name Dose Route Start Last Admin Trade Name Freq PRN Reason Stop Dose Admin Clonidine 0.2 mg 05/07/18 18:37 05/07/18 18:43 Catapres PO 05/07/18 18:38 0.2 mg ONCE STA Administration Diazepam 2 mg 05/07/18 19:01 05/07/18 19:17 Valium Syringe IVP 05/07/18 19:02 Not Given ONCE STA Diazepam 5 mg 05/07/18 19:04 05/07/18 19:16 Valium PO 05/07/18 19:05 5 mg ONCE STA Administration Morphine Sulfate 4 mg 05/07/18 19:02 05/07/18 19:31 Morphine 4 Mg/Ml Vial IVP 05/07/18 19:03 Not Given ONCE STA Vital Signs: Temp Pulse Resp BP Pulse Ox 05/07/18 19:32 94 H 20 234/152 H 05/07/18 19:17 86 18 254/179 H 100 05/07/18 19:03 80 17 247/161 H 100 05/07/18 18:41 84 15 238/157 H 97 05/07/18 18:04 98.7 F 95 H 20 249/163 H 99 TORI Risk Score TORI Risk Score: Risk Score Odds of by 30D 0 0.1 (0.1-0.2) 1 0.3 (0.2-0.3) 2 0.4 (0.3-0.5) 3 0.7 (0.6-0.9) 4 1.2 (1.0-1.5) 5 2.2 (1.9-2.6) 6 3.0 (2.5-3.6) 7 4.8 (3.8-6.1) Departure - Departure Time of Disposition: 20:10 Disposition: ADMITTED INPATIENT Discharge Problem: Hypertensive crisis Condition: Stable Pt referred to PMD for follow-up: Yes IPMP verified?: No Allergies/Adverse Reactions: Allergies divalproex sodium [From Depakote] Adverse Reaction (Verified 05/07/18 18:12) tramadol [From Ultram] Adverse Reaction (Verified 05/07/18 18:12) vancomycin Adverse Reaction (Verified 05/07/18 18:12) Home Medications: Ambulatory Orders Clonidine HCl 0.2 mg PO BID 03/16/18 Hydrochlorothiazide 25 mg PO DAILY 03/16/18 Lisinopril 10 mg PO DAILY 03/16/18 Disposition Discussed With: Patient Time Seen by Provider: 05/07/18 18:15 Objective: Vitals: T=98.7 F, P=84, R=15, UV=862/157, SPO2=97 HEENT: [] Neck: [] Lungs: [] CVS: [] Abdomen: [] Extremities: [] Neurological: [] Skin: [] Lab/Tests/Diagnostic Imaging: [] Additional Comments Additional Comments: Denies use of Amphetamines. States took OTC meds
[2018-05-07] MEDS ORDERED: CARDENE-NACL 20 MG/200 ML SOLN 20 MG in PREMIX 200ML 0.86% SODIUM CHLORIDE 1 BAG IV SCH (19:00)
[2018-05-07] MEDS ORDERED: VALIUM SYRINGE IVP STA (19:01)
[2018-05-07] MEDS ORDERED: MORPHINE 4 MG/ML VIAL IVP STA (19:02)
[2018-05-07] MEDS ORDERED: VALIUM PO STA (19:04)
[2018-05-07] MEDS ORDERED: CARDENE-NACL 20 MG/200 ML SOLN 200 ML IV ONE ×2 (19:09→23:03)
[2018-05-07] MEDS ORDERED: MORPHINE 4 MG/ML SYRINGE ONE (19:11)
[2018-05-07] MEDS ORDERED: NON-FORMULARY MEDICATION (Clonidine Hcl [Clonidine Hcl] 0.2 MG) PO SCH (21:00)
[2018-05-07 22:55] VITALS: BMI 27.8
[2018-05-07 23:02] LABS: URINE PREGNANCY TEST NEGATIVE (NEGATIVE)
[2018-05-07] MEDS ORDERED: CATAPRES ONE (23:03)
[2018-05-07] MEDS: CARDENE-NACL 20 MG/200 ML SOLN 20 MG in PREMIX 200ML 0.86% SODIUM CHLORIDE 1 BAG IV SCH (23:08)
[2018-05-07] MEDS: ZESTRIL PO SCH (23:09)
[2018-05-07] MEDS: MORPHINE 4 MG/ML VIAL IVP PRN (23:10)
--- NOTE | 2018-05-07 23:45 | PCM ---
- Chief Complaint Chief Complaint: HTN Urgency - History of Present Illness History of Present Illness: 27 yr old WF without a current PCP presented to ER today at 18:[address] velázquez. She presented with and vomiting, severely elevated BP and has been out of her BP meds for 1 week. Missed Provider appt and could not get refills. Symptoms present 48 hours, worsening, constant , rated at 8/10 generalized, localized more to right orthodoxy, +Photophobia, phonophobia, + Nausea. She arrived in ER with BP >250/150. BP worse with exertion. No alleviating factors without her clonidine 0.2BID (PATIENT AND I DISCUSSED REBOUND HTN). Anxiety, stressors, , dizzines, similar episodes historically. ?Cerbral aneursym of some form. She has HTN, smokes cig, elevated lipids, family history of migraine/. Presents today with HTN crisis. ROS reviewed, lightheaded, , no vision changes. History of meth use, history of ?CHF. She has ?Hep C+. Depression, PTSD, poison w/ rat poison in past. LMP 3 weeks ago, sexually active with current known partner. No abnl bleeding, no vaginal discharge. OCC THC. Exam from [facility]. Contacted me 19:50 and I admitted to SCU. Labs reviewed WBC 8.45, hgb 12., plt 402. Sodium 136.6 K+ 3.37, cl 104.1 , BUN 15.1, Cr 0.87 and glucose 94.3. UDS + for amp. She notes allergies and using decongestant. It is possible as meth was negative. History of meth, reports no use in 3 years. Numerous repeat BP checked while in ER. 249/163, 138/ 157, 247/161, 254/179, 234/152 by 19:32. ER checked EKG, started IV, checked troponin (negative), UA, UDS, started her on cardene drip at 5mg/hr, clonidine 0.2, [id number] PO, MS 4mg q 6, and I was contacted. Patient has right temporal and has this same when she has her BP elevations. She does not check at home but knows when it is high based on her symptoms. WE reviewed the issues with clonidine, she was restarted on this by me, I also restarted her lisinopril and HCTZ tonight and will back down to 1/2 drip rate 2.5mg/hr when she hits <160/90 and then to turn off the drip if <130/80 at 2.5mg/hour. CT head to be completed tonight to make sure no bleed. She wants to talk about OCP , we will address as OP. She notes is concerning, I would like to avoid NSAIDS for now secondary to possible increase in BP and bleeding/stroke risk, especially due to the crisis level BP. Admitted as inpatient, with expected length of stay of 1-2 days. She could not be treated as outpatient with this BP and I expect her to improve drastically over next 24 hours with inpatient specialized care in SCU. She will have regular vitals/telemetry, we will check CT stat as she has some altered status. NO test was ordered by ER, I will add this to make sure she is not . No PCP, not checking BP. No way to check thi sat home. She knows it is abnl based on and symptoms. WE reveiwed meds, she has had 48 worsening, a few bouts of emesis. Tolerating PO liquids okay, but no appetite. BMI is mildly overweight. No sick contacts, no recent travel. - Review of Systems Constitutional: No: fever, chills, weakness, sweats, fatigue, loss of appetite, other Eyes: photophobia. No: blurred vision, double-vision, discharge, itching, pain , redness, other Ears: No: pain, bleeding, drainage, ringing, hearing loss, other Nose: No: bleeding, congestion, discharge, other Throat: No: pain, swelling, voice change, other Mouth: No: bleeding, pain, swelling, other Respiratory: No: cough, shortness of air, wheeze, hemoptysis, pain with breathing, other Cardiovascular: palpitations. No: chest pain, left arm pain, diaphoresis, PND, orthopnea, edema, syncope, other Gastrointestinal: nausea. No: abdominal pain, other, vomiting, diarrhea, melena , hematemesis, hematochezia, dysphagia, constipation Genitourinary: No: dysuria, hematuria, frequency, incontinence, flank pain, vaginal discharge, abnormal bleeding, pelvic pain, other Neurological: headache, dizziness. No: other, seizure, numbness, weakness, speech difficulty, problems with walking, tremor, fainting Musculoskeletal: No: pain, swelling in joints, other Skin: No: rash, pruritus, lacerations, wounds, bruising, other Immunology: No: hives, itching, frequent infections, difficulty healing, other Hematology: No: easy bruising, easy bleeding, swollen glands, other Endocrine: No: weight changes, cold intolerance, heat intolerance, excessive thirst, excessive hunger, polyuria, other Psychiatric: No: depression, anxiety, sleeplessness, hopelessness, suicidal, hallucinations, other Habits: tobacco use, substance use. No: alcohol use, other - Past Medical History Past Medical History: HTN, meth abuse, history of CHF, history of Hep C, poisoning with rat poison, history of TIA. reported cancer, ?pericardial effusion. - Past Surgical History Past Surgical History: None reported. - Allergies Allergies/Adverse Reactions: Allergies Allergy/AdvReac Type Severity Reaction Status Date / Time divalproex sodium AdvReac Verified 05/07/18 18:12 [From Depakote] tramadol [From Ultram] AdvReac Verified 05/07/18 18:12 vancomycin AdvReac Verified 05/07/18 18:12 - Medications Medications: Medications Generic Name Dose Route Start Last Admin Trade Name Freq PRN Reason Stop Dose Admin Hydrochlorothiazide 12.5 mg 05/08/18 09:00 Hydrochlorothiazide PO DAILY ARMOND Nicardipine/Sodium Chloride 20 200 mls @ 50 mls/hr 05/07/18 22:49 05/07/18 23 :08 mg/ Sodium Chloride IV 5 mg/hr .Q4H ARMOND 50 mls/hr Administration Protocol 5 MG/HR Lisinopril 10 mg 05/07/18 20:30 05/07/18 23:09 Zestril PO 10 mg DAILY ARMOND Administration Morphine Sulfate 4 mg 05/07/18 20:12 05/07/18 23:10 Morphine 4 Mg/Ml Vial IVP 4 mg Q6H PRN Administration headache Non-Formulary Medication 0.2 mg 05/07/18 21:00 Clonidine Hcl [Clonidine Hcl] PO BID ARMOND Sodium Chloride 1 syr 05/07/18 18:35 05/07/18 18:42 Saline Flush IVF 1 syr PRN PRN Administration To flush IV - Family History Past Family History: hypertension. 4 children healthy. Mother allergies, heart prolbems in female <65, lipid/cholesterol disease. maternal grandmother cancer , DM, heart disease <65 yr old, lipid disease, HTN, maternal grandfather Heart disease early, HTN/Lipid issues. - Social History Past Social History: light smoker, not interested in cessation. Occasional THC. Former meth user. Edentulous. Orthodoxy, started smoking age 12. 2 soda per day. Menarche age 10, . - Vital Signs Temperature: 98 F Pulse Rate: 115 Respiratory Rate: 22 Blood Pressure: 163/111 O2 Sat by Pulse Oximetry: 98 - Body Composition Height: 5 ft 3 in Weight: 157 lb 6.561 oz Body Mass Index (BMI): 27.8 - Physical Examination HEENT: Constitutional: Appearance-No acute distress, Consistent with stated age. Orientation- Oriented x 3, alertGait-Normal pace, normal arm movement. Build and Nutrition-[mildly overweight] General- Patient is pleasant and cooperative with the interview and exam. Integumentary: General-No rashes, ulcers or lesions. Palpation- Normal skin moisture/turgor. Skin is warm to touch, appropriate. Capillary refill is normal bilateral Upper and lower extremity. Head/Neck: Head- normocephalic and atraumatic. Neck- without visible/palpable lumps or pulsations. Palpation- No bony tenderness about head/neck along frontal, occipital, temporal, parietal, mastoid, jawline, zygoma, orbit or any other location. NO temporal artery tenderness. No TMJ tenderness. Neck Supple. Thyroid-No thyromegaly, no nodules Eye: Pupils large bilaterally, symmetrical and responsive to direct/indirect light. Bilaterally PERRLA, EOMI. No discharge. Upper and lower eyelids are normal. Sclera/conjunctiva normal without discharge. Cornea is normal and clear. Lens is normal. Eyeball appears normal. No ciliary flushing, no conjunctival injection. ENMT: Pinna- normal without tenderness or erythema. External auditory canal Left- normal without erythema or discharge, no excessive cerumen. External auditory canal Right-normal without erythema or discharge, no excessive cerumen. TM left- Keane/pearly, normal light reflex and anatomy TM Right- Keane/ pearly, normal light reflex and anatomy Hearing Assessment-normal to conversational speech. Nose and sinus- No sinus tenderness along frontal/ maxillary region. External appearance normal and midline. Nares- bilateral quiet airflow, no discharge. Nasal mucosa- No bleeding noted and no ulcerations observed. [employer], moist. Turbinates non boggy. Lips- normal color, moist without cracks/lesions Oral Cavity/Palate- hard/soft palate intact without lesions, oral mucosa pink and moist. EDENTULOUS Tongue normal midline. Oropharynx- no pharyngeal erythema, Uvula midline. No post nasal drip. No exudate. Salivary glands- Non tender to palpation CHEST/LUNG: Inspection- symmetric chest wall no pectus deformity. Normal effort , no distress, no use of accessory muscles. Palpation- nontender sternum, ribline. No abnormal pulsations. Auscultation- Breath sounds normal throughout all lung reed. Normal tracheal sounds, Normal bronchial sounds overlying sternum, Bronchovessicular sounds normal between scapulae posteriorly, Normal vessicular breath sounds heard throughout periphery. Lungs are clear today. Adventitious sounds- No wheezes, rales, rhonchi. CARDIOVASCULAR: Carotid artery- normal, no bruits or abnormal pulsations. Jugular vein- no pulsations. Palpation/Percussion- Normal PMI, no palpable thrill Auscultation- Regular rate and rhythm. No murmur noted in sitting, supine positions. Extremities- no digital clubbing, cyanosis, edema, increased warmth. ABDOMEN: Inspection- normal and no visible pulsations. Normal contour. Auscultation- Bowel sounds normal, no abdominal bruits. Palpation/Percussion- soft, non-tender, no rebound tenderness, no rigidity (guarding), no jar tenderness, no masses. Liver-no hepatomegaly, Spleen no splenomegaly, Hernias - none. Rectal not examined. Peripheral Vascular: Upper extremity Left- Normal temperature with pink nailbeds and no ulcerations. Upper extremity Right- Normal temperature with pink nailbeds and no ulcerations. Lower extremity- Normal temperature with pink nailbeds and no ulcerations. DP pulses 2+ bilaterally. Pedal hair intact. Normal capillary refill. Edema- No edema. Musculoskeletal: Generalized-No generalized swelling or edema of extremities, no digital clubbing or cyanosis, neurovascularly intact all four extremities. Upper extremity- Symmetrical posture. No visible deformity. Normal sensation along medial and lateral upper extremity proximally and distally. NO tenderness overlying shoulder, lateral/medial epicondyle. Ab Initio Etl Developer 5/5 and strength 5/5 bilateral UE. Elbow palpated, no tenderness overlying olecranon. Normal supination, pronation to active/passive ROM and to resisted rotation. Bicep insertion/tricep insertion appear normal without obvious pathology. Rotator cuff evaluated and intact. Normal wrist ROM bilaterally. Normal hand movement, intrinsic muscles of hands normal. No tenderness to palpation of hands/wrists/ elbows. Lower extremity- Hip: Not tender to palpation, no pain, no swelling, edema or erythema of surrounding tissue, normal strength and tone. Normal appearing hip ROM bilaterally without pain. Knee: Knee ROM normal. No tenderness overlying trochanters, no tenderness about patella, quad tendon, patellar tendon. No tenderness at tibial tuberosity. Ankle: normal ROM not tender to palpation along medial/lateral malleolus. Spine/Ribs- No deformities, masses or tenderness, no known fractures, normal strength, Normal ROM. Normal stability No tenderness along C/T/L spine. Normal appearing ROM about spine. Neurological: General- Moves all 4 extremities symmetrically. Symmetrical face and body posture. Cranial nerves- individually evaluated II-XII and intact. PERRLA, Normal EOMI, visual/special senses appear intact, Face is symmetrical and normal sensation/movement, normal tongue, normal strength/posture of neck musculature. Reflexes- intact with DTR 2+ patellar, Achilles, bicep, brachial, tricep. Ankle clonus normal with 2 beats. Strength- 5/5 bilateral UE and LE. Soft touch- intact bilateral UE and LE. Temperature sensation- intact bilateral UE and LE. Balance- Romberg intact. Normal Walking, heel toe walking , tip toe and heel walking normal. Neuropsych: Oriented- Person, place, time. (AAOx3), Mood/affect- normal and congruent. Able to articulate well. Speech-Normal speech, normal rate, normal tone, normal use of language, volume and coherence. Thought content- normal with ability to perform basic computations and apply abstract thought/reason. Associations- intact, no SI/HI, no hallucinations, delusions, obsessions. Judgment/insight- Questionable Memory-Recall intact, remote and recent memory intact. Knowledge- Age appropriate fund of knowledge, concentration and attention span normal. Lymphatic: Head/Neck- normal size and non tender to palpation. Axillary- normal size and non tender to palpation. Femoral and Inguinal- normal size and non tender to palpation. - Lab/Tests/Diagnostic Imaging Lab/Tests/Diagnostic Imaging: Laboratory Last Values WBC 8.45 K/ul (4.6-10.2) 05/07/18 18:40 RBC 5.07 10^6/ul (4.20-5.40) 05/07/18 18:40 Hgb 12.7 g/dl (12.0-16.0) 05/07/18 18:40 Hct 39.8 % (37.0-47.0) 05/07/18 18:40 MCV 78.5 fl (81.0-99.0) L 05/07/18 18:40 MCH 25.0 pg (27.0-31.0) L 05/07/18 18:40 MCHC 31.9 (31.8-35.4) 05/07/18 18:40 RDW Coeff of Anastasia 16.0 % (11.6-14.8) H 05/07/18 18:40 Plt Count 402 10^3/uL (140-440) 05/07/18 18:40 Immature Gran % (Auto) 0.1 % (0.0-5.0) 05/07/18 18:40 Neut % (Auto) 63.1 05/07/18 18:40 Lymph % (Auto) 26.5 (10.0-50.0) 05/07/18 18:40 Kay % (Auto) 8.5 (0-10) 05/07/18 18:40 Eos % (Auto) 1.2 % (0.0-7.0) 05/07/18 18:40 Baso % (Auto) 0.6 % (0.0-3.0) 05/07/18 18:40 Immature Gran # (Auto) 0.0 (0.0-1.0) 05/07/18 18:40 Neut # (Auto) 5.3 K/ul (2.0-6.9) 05/07/18 18:40 Lymph # (Auto) 2.2 K/uL (0.60-3.4) 05/07/18 18:40 Kay # (Auto) 0.7 K/uL (0.4-2.0) 05/07/18 18:40 Eos # (Auto) 0.1 K/ul (0.0-0.7) 05/07/18 18:40 Baso # (Auto) 0.1 K/uL (0-0.2) 05/07/18 18:40 Sodium 136.6 mmol/L (137-145) L 05/07/18 18:40 Potassium 3.37 mmol/L (3.5-5.1) L 05/07/18 18:40 Chloride 104.1 mmol/L (98-107) 05/07/18 18:40 Carbon Dioxide 26.7 mmol/L (22-30.0) 05/07/18 18:40 Anion Gap 9.17 05/07/18 18:40 BUN 15.1 mg/dL (7-17) 05/07/18 18:40 Creatinine 0.87 mg/dL (0.60-1.30) 05/07/18 18:40 Estimated GFR (MDRD) 77.00 mL/min 05/07/18 18:40 BUN/Creatinine Ratio 17.35 05/07/18 18:40 Glucose 94.3 mg/dL (74-106) 05/07/18 18:40 Calcium 9.22 mg/dL (8.4-10.2) 05/07/18 18:40 Total Bilirubin 0.29 mg/dL (0.2-1.3) 05/07/18 18:40 AST 33.2 U/L (14-36) 05/07/18 18:40 ALT 19.4 U/L (0-35) 05/07/18 18:40 Alkaline Phosphatase 103.3 U/L (38-126) 05/07/18 18:40 Troponin I 0.022 ng/ml (0.0000-0.120) 05/07/18 18:40 Total Protein 7.82 g/dL (6.3-8.2) 05/07/18 18:40 Albumin 4.20 g/dL (3.5-5.0) 05/07/18 18:40 Globulin 3.62 05/07/18 18:40 Albumin/Globulin Ratio 1.16 05/07/18 18:40 Urine Color Yellow (YELLOW) 05/07/18 18:39 Urine Clarity Clear (CLEAR) 05/07/18 18:39 Urine pH 7.5 (5-9) 05/07/18 18:39 Ur Specific [place] 1.015 (1.005-1.030) 05/07/18 18:39 Urine Protein Negative (NEGATIVE) 05/07/18 18:39 Urine Glucose (UA) Negative (NEGATIVE) 05/07/18 18:39 Urine Ketones Negative (NEGATIVE) 18 18:39 Urine Blood Negative (NEGATIVE) 05/07/18 18:39 Urine Nitrite Negative (NEGATIVE) 05/07/18 18:39 Urine Bilirubin Negative (NEGATIVE) 05/07/18 18:39 Urine Urobilinogen 0.2 (0.2) 05/07/18 18:39 Ur Leukocyte Esterase Negative (NEGATIVE) 05/07/18 18:39 Urine Test Negative (NEGATIVE) 05/07/18 22:42 Urine Opiates Screen Negative (NEGATIVE) 05/07/18 18:39 Ur Oxycodone Screen Negative (NEGATIVE) 05/07/18 18:39 Urine Methadone Screen Negative (NEGATIVE) 05/07/18 18:39 Ur Propoxyphene Screen Negative (NEGATIVE) 05/07/18 18:39 Ur Barbiturates Screen Negative (NEGATIVE) 05/07/18 18:39 U Tricyclic Antidepress Negative (NEGATIVE) 05/07/18 18:39 Ur Phencyclidine Scrn Negative (NEGATIVE) 05/07/18 18:39 Ur Amphetamine Screen Positive (NEGATIVE) 05/07/18 18:39 U Methamphetamines Scrn Negative (NEGATIVE) 05/07/18 18:39 U Benzodiazepines Scrn Negative (NEGATIVE) 05/07/18 18:39 Urine Cocaine Screen Negative (NEGATIVE) 05/07/18 18:39 U Cannabinoids Screen Negative (NEGATIVE) 05/07/18 18:39 CT HEad: No active disease. - Assessment (1) Hypertensive crisis Status: Acute Code(s): I10 - ESSENTIAL (PRIMARY) HYPERTENSION SNOMED Code(s) : 583405998 (2) Headache Status: Inactive Code(s): R51 - HEADACHE SNOMED Code(s): 43021377 (3) History of marijuana use Status: Inactive Code(s): Z87.898 - PERSONAL HISTORY OF OTHER SPECIFIED CONDITIONS SNOMED Code(s): 311809349 (4) History of methamphetamine abuse Status: Inactive Code(s): Z87.898 - PERSONAL HISTORY OF OTHER SPECIFIED CONDITIONS SNOMED Code(s): 163874447 (5) Hypokalemia Status: Inactive Code(s): E87.6 - HYPOKALEMIA SNOMED Code(s): 30418408 (6) Light smoker Status: Inactive (7) Non compliance w medication regimen Status: Inactive Code(s): Z91.14 - PATIENT'S OTHER NONCOMPLIANCE WITH MEDICATION REGIMEN SNOMED Code(s): 603477236 - Plan Plan: HTN Crisis: Admitted to hospital as inpatient to SCU with close monitoring. She was started on cardene drip and we will monitor her BP as it drops. I will resume her normal home meds and titrate the cardene down overnight. SHe was started on 5mg/hr, which is reasonable, was given clonidine 0.2 in ER. We reviewed rebound HTN, which is likely present. She should recover well with the clonidine restarted. We will cover her pain with morphine, no NSAIDS. Repeat labs in the am. With will get urine preg now and then CT head to r/o bleed. Historically she has a ?aneursym. - Admit to inpatient status SCU, Telemetry. - CBC/CMP in am - Urine preg stat now - CT head now to r/o bleed. - Cardene drip titrate to <140/90. - Resume clonidine 0.2mg BID - REsume lisinopril 10mg daily - REsume HCTZ 12.5mg daily. Headache: Discussed with patient today ddx HTN induced , migraine, tension , cluster . Migraine dx needs at least 5 attacks fulfilling the following criteria: lasting 4-72 hours, has at least 2 of the following characteristics, Unilateral, pulsatile, moderate/severe pain, aggravated by or causing avoidance of routing activity), also to have N/V or both, Photo/ phonophobia. Not accounted for by other Dx. No aura prior to . Discussed to keep a journal. Discussed to monitor onset of symptoms, duration, what worked. Ddx for this could be sinus headache, Tension type , analgesic , trigeminal autonomic cephalgia, cluster. These are not awakening the patient from sleep. These are not getting worse with time. No lacrimation, salivation , rhinorrhea, no facial flushing. No pin point/needle pin like symptoms on face /scalp. Reviewed secondary causes of (HTN), no reported trauma. Reviewed acute treatments. Monitor for improvement over next 24-48 hours. - Morphine 4 q 6 hours IV. - Reviewed Tylenol, reviewed NSAIDS, reviewed Benadryl as potential benefits in some patients. - No NSAIDS for now. Reviewed antiemetics Reglan, Compazine tend to be best but do have some side effects of concern. Phenergan can be of benefit but may cause some sedation. Zofran ODT can help with nausea, R/b/A and SE d/w patient. Discussed chronic suppression medications as well. r/b/A to Elavil d/ w patient, BB d/w patient and CCB d/w patient. Amphetamine in urine: ?use of decongestant. Reasonable expectation. May contribute to HTN. Hypokalemia: Reassess in am, if remains <4.0 I will give her 20meq with breakfast. Can expect increase of ~0.1 for every 10meq given. Light Smoker: Tobacco Cessation discussed today for 2 minutes. We reviewed lifestyle choices and discussed quitting. Ready to quit status discussed. The risks and hazards of continued tobacco abuse were discussed with the patient today and total tobacco cessation as recommended. It was clearly and unambiguously explained that continued tobacco usage will adversely affect overall morbidity and mortality of the patient. Patient was informed that tobacco use can lead to numerous cancers, worsening of cardiovascular and pulmonary systems and that lung damage is often permanent and irreversible. I advised the patient to inform me if any further assistance is requested, as we can offer counseling services, nicotine replacement inhaled, patch, lozenge, gum, or prescription medications to include Chantix or Wellbutrin for assistance. I will reassess the interest in tobacco cessation at the next and all subsequent visits. - Declined nicotine patch Activity: Up with assist. Diet: Regular. Disposition: Suspect admit for 1-2 days based on crisis. I would like to make sure her BP remain controlled on oral meds 05/08/18 and if stable through we may d/c home on 05/09/18. She agrees with this plan. >70 minutes spent reviewing history, talking with Er team, talking with patient. this does not include documentation time.
--- NOTE | 2018-05-07 23:47 | CT ---
EXAM: CT brain without contrast HISTORY: Headache TECHNIQUE: CT of the brain without intravenous contrast FINDINGS: There is no acute hemorrhage midline shift or mass effect. No hydrocephalus or abnormal e xtra-axial fluid collection. No significant parenchymal attenuation abnormality. The bony cranium a ppears normal. The visualized paranasal sinuses are clear. Soft tissues without significant abnormali ty. IMPRESSION: 1. CT of the brain within normal limits.
[2018-05-08] MEDS: CARDENE-NACL 20 MG/200 ML SOLN 20 MG in PREMIX 200ML 0.86% SODIUM CHLORIDE 1 BAG IV SCH ×2 (04:35→08:45)
[2018-05-08] MEDS ORDERED: ZESTRIL PO STA (07:34)
[2018-05-08] MEDS ORDERED: CATAPRES PO STA (07:34)
[2018-05-08] MEDS ORDERED: HYDROCHLOROTHIAZIDE PO ONE (07:35)
[2018-05-08] MEDS: MORPHINE 4 MG/ML VIAL IVP PRN (07:42)
[2018-05-08] MEDS: ZESTRIL PO SCH (08:44)
--- NOTE | 2018-05-08 16:20 | PCM.DC ---
Final Diagnosis: Hypertensive crisis (Acute) History of meth use 1/2 pack per day Cerebral aneursym Headache migrainous. Non compliance (1) Hypertensive crisis Status: Acute Code(s): I10 - ESSENTIAL (PRIMARY) HYPERTENSION SNOMED Code(s) : 351546716 (2) History of methamphetamine abuse Status: Inactive Code(s): Z87.898 - PERSONAL HISTORY OF OTHER SPECIFIED CONDITIONS SNOMED Code(s): 312228469 (3) History of marijuana use Status: Inactive Code(s): Z87.898 - PERSONAL HISTORY OF OTHER SPECIFIED CONDITIONS SNOMED Code(s): 341157374 (4) Light smoker Status: Inactive (5) Headache Status: Inactive Code(s): R51 - HEADACHE SNOMED Code(s): 12322047 (6) Non compliance w medication regimen Status: Inactive Code(s): Z91.14 - PATIENT'S OTHER NONCOMPLIANCE WITH MEDICATION REGIMEN SNOMED Code(s): 174529055 (7) Hypokalemia Status: Inactive Code(s): E87.6 - HYPOKALEMIA SNOMED Code(s): 84646348 Reason for Hospitalization: HTN Crisis Prognosis at Discharge: Markedly improved Condition at Discharge: Markedly improved. Medications at Discharge: Ambulatory Orders Medication Instructions Recorded Clonidine HCl 0.2 mg PO BID 30 Days #60 tab 05/08/18 Lisinopril/Hydrochlorothiazide 1 each PO DAILY 30 Days #30 tablet 05/08/18 [Zestoretic 20-25 mg Tablet] Lab/Diagnostics: Laboratory Last Values WBC 8.45 K/ul (4.6-10.2) 05/07/18 18:40 RBC 5.07 10^6/ul (4.20-5.40) 05/07/18 18:40 Hgb 12.7 g/dl (12.0-16.0) 05/07/18 18:40 Hct 39.8 % (37.0-47.0) 05/07/18 18:40 MCV 78.5 fl (81.0-99.0) L 18 18:40 MCH 25.0 pg (27.0-31.0) L 05/07/18 18:40 MCHC 31.9 (31.8-35.4) 05/07/18 18:40 RDW Coeff of Anastasia 16.0 % (11.6-14.8) H 05/07/18 18:40 Plt Count 402 10^3/uL (140-440) 05/07/18 18:40 Immature Gran % (Auto) 0.1 % (0.0-5.0) 05/07/18 18:40 Neut % (Auto) 63.1 05/07/18 18:40 Lymph % (Auto) 26.5 (10.0-50.0) 05/07/18 18:40 Luna % (Auto) 8.5 (0-10) 05/07/18 18:40 Eos % (Auto) 1.2 % (0.0-7.0) 05/07/18 18:40 Baso % (Auto) 0.6 % (0.0-3.0) 05/07/18 18:40 Immature Gran # (Auto) 0.0 (0.0-1.0) 05/07/18 18:40 Neut # (Auto) 5.3 K/ul (2.0-6.9) 05/07/18 18:40 Lymph # (Auto) 2.2 K/uL (0.60-3.4) 05/07/18 18:40 Luna # (Auto) 0.7 K/uL (0.4-2.0) 05/07/18 18:40 Eos # (Auto) 0.1 K/ul (0.0-0.7) 05/07/18 18:40 Baso # (Auto) 0.1 K/uL (0-0.2) 05/07/18 18:40 Sodium 134.1 mmol/L (137-145) L 05/08/18 08:08 Potassium 3.95 mmol/L (3.5-5.1) 05/08/18 08:08 Chloride 103.4 mmol/L (98-107) 05/08/18 08:08 Carbon Dioxide 25.7 mmol/L (22-30.0) 05/08/18 08:08 Anion Gap 8.95 05/08/18 08:08 BUN 13.5 mg/dL (7-17) 05/08/18 08:08 Creatinine 0.81 mg/dL (0.60-1.30) 05/08/18 08:08 Estimated GFR (MDRD) 84.00 mL/min 05/08/18 08:08 BUN/Creatinine Ratio 16.66 05/08/18 08:08 Glucose 115.7 mg/dL (74-106) H 05/08/18 08:08 Calcium 9.20 mg/dL (8.4-10.2) 05/08/18 08:08 Total Bilirubin 0.38 mg/dL (0.2-1.3) 05/08/18 08:08 AST 24.9 U/L (14-36) 05/08/18 08:08 ALT 19.0 U/L (0-35) 05/08/18 08:08 Alkaline Phosphatase 80.1 U/L (38-126) 05/08/18 08:08 Troponin I 0.022 ng/ml (0.0000-0.120) 05/07/18 18:40 Total Protein 7.75 g/dL (6.3-8.2) 05/08/18 08:08 Albumin 4.09 g/dL (3.5-5.0) 05/08/18 08:08 Globulin 3.66 05/08/18 08:08 Albumin/Globulin Ratio 1.11 05/08/18 08:08 Urine Color Yellow (YELLOW) 05/07/18 18:39 Urine Clarity Clear (CLEAR) 05/07/18 18:39 Urine pH 7.5 (5-9) 05/07/18 18:39 Ur Specific Carver 1.015 (1.005-1.030) 05/07/18 18:39 Urine Protein Negative (NEGATIVE) 05/07/18 18:39 Urine Glucose (UA) Negative (NEGATIVE) 05/07/18 18:39 Urine Ketones Negative (NEGATIVE) 05/07/18 18:39 Urine Blood Negative (NEGATIVE) 05/07/18 18:39 Urine Nitrite Negative (NEGATIVE) 05/07/18 18:39 Urine Bilirubin Negative (NEGATIVE) 05/07/18 18:39 Urine Urobilinogen 0.2 (0.2) 05/07/18 18:39 Ur Leukocyte Esterase Negative (NEGATIVE) 05/07/18 18:39 Urine Test Negative (NEGATIVE) 05/07/18 22:42 Urine Opiates Screen Negative (NEGATIVE) 05/07/18 18:39 Ur Oxycodone Screen Negative (NEGATIVE) 05/07/18 18:39 Urine Methadone Screen Negative (NEGATIVE) 05/07/18 18:39 Ur Propoxyphene Screen Negative (NEGATIVE) 05/07/18 18:39 Ur Barbiturates Screen Negative (NEGATIVE) 05/07/18 18:39 U Tricyclic Antidepress Negative (NEGATIVE) 05/07/18 18:39 Ur Phencyclidine Scrn Negative (NEGATIVE) 05/07/18 18:39 Ur Amphetamine Screen Positive (NEGATIVE) 05/07/18 18:39 U Methamphetamines Scrn Negative (NEGATIVE) 05/07/18 18:39 U Benzodiazepines Scrn Negative (NEGATIVE) 05/07/18 18:39 Urine Cocaine Screen Negative (NEGATIVE) 05/07/18 18:39 U Cannabinoids Screen Negative (NEGATIVE) 05/07/18 18:39 Ct head no acute intracranial process. Education Provided to Patient and Family: 1. Zestoretic 2. HTN urgency 3. Smoking cessation 4. Drug cessation Follow-ups: Sunday am my office Disposition: HOME SELF-CARE Hospital Course: 27 yr old WF without a current PCP presented to ER 05/07 at 18:15. She was seen by Dr. velázquez, presented with and vomiting, severely elevated BP. She has been out of her BP meds for past 1 week. Missed Provider appt x 2, was using ER for refills, and could not get refills. Symptoms present 48 hours, worsening, constant , rated at 8/10 generalized, localized more to right anglican. She reported migraine like symptoms with +Photophobia, phonophobia, + Nausea. She arrived in ER with BP >250/150, worse with exertion. No alleviating factors without her clonidine 0.2BID. We reviewed rebound HTN as likely cause for her sx. She has had more anxiety, stressors lately. Now with dizziness, . She has had similar episode historically requiring Er evaluation. She has a history of meth use, no recent use despite +amp, neg methamphetamine. She reports a Cerbral aneursym of some form. She has HTN, smokes 1/2 ppd, elevated lipids, family history of migraine/. Presented to Er in HTN crisis. ROS reviewed, lightheaded, , no vision changes. She has ? Hep C+, Depression, PTSD. LMP 3 weeks ago, sexually active with current known partner. No abnl bleeding, no vaginal discharge. Occasional use of THC. She was started on cardene drip and I was contacted at 1950. Labs reviewed and CBC was okay with WBC 8.45, hgb 12, plt 402. CMP showed mild hypokalemia else okay. Sodium 136.6 K+ 3.37, cl 104.1, BUN 15.1, Cr 0.87 and glucose 94.3. UDS + for amp, neg met. She notes allergies and using decongestant. It is possible as meth was negative. History of meth, reports no use in 3 years. Numerous repeat BP checked while in ER. 249/163, 138/157, 247/161, 254/179, 234/152 by 19 :32. ER checked EKG, started IV, checked troponin (negative), UA, UDS, started her on cardene drip at 5mg/hr, clonidine 0.2, [id number] PO, MS 4mg q 6, and I was contacted. Patient has right temporal and has this same when she had her BP elevations previously. Not checking regularly. She and I talked about rebound HTN and need to not miss meds. I restarted her lisinopril and HCTZ, and titrated the drip. CT head negative for acute process. She was admitted as inpatient to the [facility]. Q 15 minute BP. test ordered and negative. This am we reviewed her BP. Drip was titrated down and stopped. I changed her lisinopril 10 and HCTZ 25 to zestoretic 20/25 and continued clonidine 0.2mg BID. Labs this am were repeated and found to be stable. K+ resolved. Mild hyponatremia. She was discharged today, free, BP normal. f/U with me in office next sunday am. Day of D/C Exam: Constitutional: Appearance-No acute distress, Consistent with stated age. Edentulous Orientation- Oriented x 3, alert Gait-Normal pace, normal arm movement. Build and Nutrition-[mildly overweight] General- Patient is pleasant and cooperative with the interview and exam. Integumentary: General-No rashes, ulcers or lesions. Palpation- Normal skin moisture/turgor. Skin is warm to touch, appropriate. Capillary refill is normal bilateral Upper and lower extremity. Head/Neck: Head- normocephalic and atraumatic. Neck- without visible/palpable lumps or pulsations. Palpation- No bony tenderness about head/neck along frontal, occipital, temporal, parietal, mastoid, jawline, zygoma, orbit or any other location. NO temporal artery tenderness. No TMJ tenderness. Neck Supple. Thyroid-No thyromegaly, no nodules Eye: Pupils symmetrical and responsive to direct/indirect light. Bilaterally PERRLA, EOMI. No discharge. Upper and lower eyelids are normal. Sclera/ conjunctiva normal without discharge. Cornea is normal and clear. Lens is normal. Eyeball appears normal. No ciliary flushing, no conjunctival injection. ENMT: Nose and sinus- No sinus tenderness along frontal/maxillary region. External appearance normal and midline. Nares- bilateral quiet airflow, no discharge. Nasal mucosa- No bleeding noted and no ulcerations observed. Kechi, moist. Turbinates non boggy. Lips- normal color, moist without cracks/lesions Oral Cavity/Palate- hard/soft palate intact without lesions, oral mucosa pink and moist. EDENTULOUS Tongue normal midline. Oropharynx- no pharyngeal erythema , Uvula midline. No post nasal drip. No exudate. Salivary glands- Non tender to palpation CHEST/LUNG: Inspection- symmetric chest wall no pectus deformity. Normal effort , no distress, no use of accessory muscles. Palpation- nontender sternum, ribline. No abnormal pulsations. Auscultation- Breath sounds normal throughout all lung reed. Normal tracheal sounds, Normal bronchial sounds overlying sternum, Bronchovessicular sounds normal between scapulae posteriorly, Normal vessicular breath sounds heard throughout periphery. Lungs are clear today. Adventitious sounds- No wheezes, rales, rhonchi. CARDIOVASCULAR: Carotid artery- normal, no bruits or abnormal pulsations. Jugular vein- no pulsations. Palpation/Percussion- Normal PMI, no palpable thrill Auscultation- Regular rate and rhythm. No murmur noted in sitting, supine positions. Extremities- no digital clubbing, cyanosis, edema, increased warmth. ABDOMEN: Inspection- normal and no visible pulsations. Normal contour. Auscultation- Bowel sounds normal, no abdominal bruits. Palpation/Percussion- soft, non-tender, no rebound tenderness, no rigidity (guarding), no jar tenderness, no masses. Liver-no hepatomegaly, Spleen no splenomegaly, Hernias - none. Rectal not examined. Peripheral Vascular: Upper extremity Left- Normal temperature with pink nailbeds and no ulcerations. Upper extremity Right- Normal temperature with pink nailbeds and no ulcerations. Lower extremity- Normal temperature with pink nailbeds and no ulcerations. DP pulses 2+ bilaterally. Pedal hair intact. Normal capillary refill. Edema- No edema. Musculoskeletal: Generalized-No generalized swelling or edema of extremities, no digital clubbing or cyanosis, neurovascularly intact all four extremities Neurological: General- Moves all 4 extremities symmetrically. Symmetrical face and body posture. Cranial nerves- individually evaluated II-XII and intact. PERRLA, Normal EOMI, visual/special senses appear intact, Face is symmetrical and normal sensation/movement, normal tongue, normal strength/posture of neck musculature. Reflexes- intact with DTR 2+ patellar, Achilles, bicep, brachial, tricep. Ankle clonus normal with 2 beats. Strength- 5/5 bilateral UE and LE. Soft touch- intact bilateral UE and LE. Temperature sensation- intact bilateral UE and LE. Balance- Romberg intact. Normal Walking, heel toe walking , tip toe and heel walking normal. Neuropsych: Oriented- Person, place, time. (AAOx3), Mood/affect- normal and congruent. Able to articulate well. Speech-Normal speech, normal rate, normal tone, normal use of language, volume and coherence. Thought content- normal with ability to perform basic computations and apply abstract thought/reason. Associations- intact, no SI/HI, no hallucinations, delusions, obsessions. Judgment/insight- Questionable Memory-Recall intact, remote and recent memory intact. Knowledge- Age appropriate fund of knowledge, concentration and attention span normal. Plan: 1. Follow up in my office next week. 79905/15/18. 2. Take BP medications once daily zestoretic 3. Take BP medications BID clonidine. 4. F/U in office. 5. Smoking cessation encouarged. Will discuss more in clinic. 6. Flu shot recommended before d/c. Can readdress at OV. Declined by patient 7. Pneumonia vaccine recommended before d/c. Can readdress at OV. Declined by patient >30 minutes spent on discharge today. Reviewing meds, SE. F/U with me in 1 week.
[2018-05-08] MEDS ORDERED: CATAPRES PO SCH (21:00)
[2018-05-08 22:25] VITALS: BP 163/111; TEMP 98
[2018-05-09] MEDS ORDERED: HYDROCHLOROTHIAZIDE PO SCH (09:00)
== END 2018-05-08 12:00 | disposition home or self-care (01) | DRG 305 ==
LOC: ED 18:03 → SCU 20:25
PROVIDERS: ADMIT Family Medicine; ATTEND Family Medicine
DX: I16.0 Hypertensive urgency (principal); R11.10 Vomiting, unspecified; F41.9 Anxiety disorder, unspecified; R42 Dizziness and giddiness; Z91.14 Patient's other noncompliance with medication regimen; Z87.898 Personal history of other specified conditions
CPT/HCPCS: 36415; 80053; 80306; 81001; 81025; 84484; 85025; 87081; 93005; 93010; 96365; 96366; 96375; 99284; 99285

== ENCOUNTER 2018-06-13 17:14 | Emergency (ER) ==
[2018-06-13 17:17] VITALS: TEMP 97.8; BMI 28.6
--- NOTE | 2018-06-13 17:28 | ED.PDOC ---
General ED Provider: Dr. SAUL PAVON Chief Complaint: Chest Pain Stated Complaint: States sustained electrical shock -lt hand into shoulder across chest and into Rt arm to hand. No LOC. Denies chest pain at present. Denies N_V. PT WAS TRYING TO HEAT WATER UP ON THE STOVE, WENT TO TURN BURNER OFF AND STOVE ELECTROCUTED HER. COMPLAINS OF CHEST PAIN AND SHORTNESS OF BREATH AND HEADACHE Time Seen by Physician: 17:10 Mode of Arrival: Wheelchair Information Source: Patient Exam Limitations: No limitations Nursing and Triage Documentation Reviewed and Agree: Yes Does patient meet sepsis criteria?: No System Inflammatory Response Syndrome: Not Applicable Sepsis Protocol: For patient's 13 years and over: Temp is 96.8 and below OR 101 and greater Pulse >90 BPM Resp >20/minute Acutely Altered Mental Status Are patient's symptoms suggestive of a new infection, such as: -Pneumonia -Skin, Soft Tissue -Endocarditis -UTI -Bone, Joint Infection -Implantable Device -Acute Abdominal Infection -Wound Infection -Meningitis -Blood Stream Catheter Infection -Unknown Cardiovascular Complaint Exam - Chest Pain Complaint/Exam Onset: Sudden Symptoms Are: Resolved Timing: Intermittent Length of Chest Pain Episodes: 5 min Initial Severity: Moderate Current Severity: None Location: Reports: Upper sternal Pain Radiates: Reports: Left shoulder, Right shoulder, Left arm, Right arm ( from electrical shock-no loc) Character: Reports: Aching, Pressure Aggravating: Reports: None Alleviating: Reports: Spontaneous resolution Associated Signs and Symptoms: Denies: Diaphoresis, Nausea, Vomiting, Fever, Palpitations, Cough, Hemoptysis, Back pain, Abdominal pain, Dizziness, Short of air, Calf pain, Calf swelling Related History: Denies: Similar episode Related Surgical History: Reports: None History of Healthcare-Acquired Pneumonia: Reports: No AMI/ACS Risk Factors: Reports: None TAD Risk Factors: Reports: Hypertension Pulmonary Embolism Risk Factors: Reports: None Prior Care for this Complaint: No Recent Stress Test: No Recent Echo/LV Function: No JVD Present: No Subcutaneous Emphysema Present: No Diminshed Breath Sounds: No Reproducible Chest Wall Pain: No Bilateral Pulses Present: Yes Unequal Pulses Noted: No If Risk Factors for AMI/ACS Consider: EKG, Cardiac Enzymes Cart Pusher Consulted: No Differential Diagnoses: Other (electrical shock lt hand) Review of Systems - Review Of Systems Constitutional: Reports: No symptoms Eyes: Reports: No symptoms Ears, Nose, Mouth, Throat: Reports: No symptoms Respiratory: Reports: No symptoms Cardiac: Reports: Chest pain GI: Reports: No symptoms : Reports: No symptoms Musculoskeletal: Reports: No symptoms Skin: Reports: No symptoms Neurological: Reports: No symptoms Endocrine: Reports: No symptoms Hematologic/Lymphatic: Reports: No symptoms All Other Systems: Reviewed and Negative Past Medical History - Past Medical History Previously Healthy: No (HTN, Meth abuse, CHF) Endocrine: Reports: None Cardiovascular: Reports: Hypertension, CHF Respiratory: Reports: None Hematological: Reports: None Gastrointestinal: Reports: Other (HEP C POSTIVE ) Genitourinary: Reports: None Neuro/Psych: Reports: Depression, PTSD, Other (poisoning with rat poison in past ) Musculoskeletal: Reports: None Cancer: Reports: None Last Menstrual Period: 1 DAY AGO - Surgical History General Surgical History: Reports: None - Family History Family History: Reports: Hypertension - Social History Smoking Status: Current every day smoker, Light tobacco smoker Hx Substance Use: Yes (occ marijuana) Alcohol Screening: None Physical Exam - Physical Exam Appearance: Well-appearing, No pain distress, Well-nourished Ill-appearing: None Pain Distress: None Eyes: BRAULIO, EOMI, Conjunctiva clear ENT: Ears normal, Nose normal, Oropharynx normal Respiratory: Airway patent, Breath sounds clear, Breath sounds equal, Respirations nonlabored Cardiovascular: RRR, Pulses normal, No rub, No murmur GI/: Soft, Nontender, No masses, Bowel sounds normal, No Organomegaly Musculoskeletal: Normal strength (no localized swelling oh her hands or sites of burn), ROM intact, No edema, No calf tenderness Skin: Warm, Dry, Normal color Neurological: Sensation intact, Motor intact, Reflexes intact, Cranial nerves intact, Alert, Oriented Psychiatric: Affect appropriate, Mood appropriate Interpretation - Radiology Interpretation Radiology Interpretation By: Radiologist Radiology Results: No acute changes Exam Interpreted: Portable CXR Re-Evaluation - Re-Evaluation Time of Re-Evaluation: 18:20 Status: Improved Vital Signs Stable: No (BP elevated/has not taken meds this afternoon and prefers to take at home) Pain Level: none Appearance: NAD Lungs: Clear Skin: Warm and Dry Neuro: Alert and Oriented X3 CV: RRR Critical Care Note - Critical Care Note Total Time (mins): 60 Course - Course Hematology/Chemistry: 06/13/18 17:44 06/13/18 17:44 Orders, Labs, Meds: Lab Review 06/13/18 06/13/18 17:44 17:44 WBC 7.02 RBC 4.36 Hgb 11.4 L Hct 35.1 L MCV 80.5 L MCH 26.1 L MCHC 32.5 RDW Coeff of Anastasia 15.0 H Plt Count 259 Immature Gran % (Auto) 0.3 Neut % (Auto) 64.4 Lymph % (Auto) 25.8 Tompkins % (Auto) 6.1 Eos % (Auto) 3.0 Baso % (Auto) 0.4 Immature Gran # (Auto) 0.0 Neut # (Auto) 4.5 Lymph # (Auto) 1.8 Tompkins # (Auto) 0.4 Eos # (Auto) 0.2 Baso # (Auto) 0.0 Sodium 133.7 L Potassium 3.43 L Chloride 102.0 Carbon Dioxide 26.7 Anion Gap 8.43 BUN 8.2 Creatinine 0.89 Estimated GFR (MDRD) 75.00 BUN/Creatinine Ratio 9.21 Glucose 92.5 Calcium 8.87 Total Bilirubin 0.23 AST 32.6 ALT 19.7 Alkaline Phosphatase 88.7 Total Creatine Kinase 70.9 Troponin I < 0.012 Total Protein 6.88 Albumin 3.67 Globulin 3.21 Albumin/Globulin Ratio 1.14 Orders Category Date Time Status EKG-(ED ONLY) Stat CARDIO 06/13/18 17:29 Completed CBC W/ AUTO DIFF Stat LAB 06/13/18 17:44 Completed CMP [COMPREHENSIVE METABOLIC PANEL] Stat LAB 06/13/18 17:44 Completed CPK [CREATINE KINASE] Stat LAB 06/13/18 17:44 Completed TROPONIN I Stat LAB 06/13/18 17:44 Completed CHEST, 1V AP ONLY Stat RADS 06/13/18 17:29 Completed Vital Signs: Temp Pulse Resp BP Pulse Ox 06/13/18 18:30 188/122 H 06/13/18 17:14 97.8 F 95 H 20 152/121 H 99 TORI Risk Score TORI Risk Score: Risk Score Odds of by 30D 0 0.1 (0.1-0.2) 1 0.3 (0.2-0.3) 2 0.4 (0.3-0.5) 3 0.7 (0.6-0.9) 4 1.2 (1.0-1.5) 5 2.2 (1.9-2.6) 6 3.0 (2.5-3.6) 7 4.8 (3.8-6.1) Departure - Departure Time of Disposition: 18:35 Disposition: HOME SELF-CARE Discharge Problem: Electrical shock of hand, Chest pain, Labile hypertension Instructions: Chest Pain (ED) Condition: Good Pt referred to PMD for follow-up: Yes IPMP verified?: No Additional Instructions: At the time of you exam there were no finding of harris to the hands, shoulder or extremities Precaution about exposure to non grounded appliances etc follow up pcp Allergies/Adverse Reactions: Allergies divalproex sodium [From Depakote] Adverse Reaction (Verified 06/13/18 17:17) tramadol [From Ultram] Adverse Reaction (Verified 06/13/18 17:17) vancomycin Adverse Reaction (Verified 06/13/18 17:17) Home Medications: Ambulatory Orders Clonidine HCl 0.2 mg PO BID 30 Days #60 tab 05/08/18 Lisinopril/Hydrochlorothiazide [Zestoretic 20-25 mg Tablet] 1 each PO DAILY 30 Days #30 tablet 05/08/18 Disposition Discussed With: Patient (Instructed to take evening BP med Clonidine upon arrival home; attempt not to miss dose) Additional Information: Patient states has missed afternoon dose of Clonidine Asymptomatic of BP being elevated Instructed to take evening BP med Clonidine upon arrival home; attempt not to miss dose
[2018-06-13 18:39] VITALS: BP 188/122
--- NOTE | 2018-06-13 18:42 | DI ---
EXAM: Single-view chest HISTORY: Electrical shock COMPARISON: Two-view chest 04/22/2018 FINDINGS: The cardiomediastinal silhouette is normal. The lungs are clear bilaterally. No osseous abnormalities identified IMPRESSION: No evidence of active pulmonary disease
== END 2018-06-13 19:10 | disposition home or self-care (01) ==
LOC: ED 17:14
DX: T75.4XXA Electrocution, initial encounter (principal); R07.9 Chest pain, unspecified; I10 Essential (primary) hypertension; R06.02 Shortness of breath; W86.8XXA Exposure to other electric current, initial encounter; F17.210 Nicotine dependence, cigarettes, uncomplicated; Z79.899 Other long term (current) drug therapy
CPT/HCPCS: 36415; 80053; 82550; 84484; 85025; 93005; 93010; 96361; 99284

== ENCOUNTER 2018-07-19 04:26 | Observation (INO) ==
[2018-07-19 04:39] VITALS: BMI 26.2
[2018-07-19] MEDS ORDERED: TRANDATE IVP STA ×2 (05:01→06:31)
--- NOTE | 2018-07-19 05:21 | ED.PDOC ---
General ED Provider: Dr. LINDA AZAR Chief Complaint: Seizure Stated Complaint: Boyfriend dropped the patient states that she has been having seizures. Patient states she doesn't remember anything. Does complain of severe headache, states has vomited several times, feels like going to pass out. Has a history of seizures and hypertension. States she has not been taking any blood pressure medications since she has been out. Does not have a medical card hence does not have a PCP. was admitted last year for hypertensive crisis. Time Seen by Physician: 04:50 Mode of Arrival: Walk-In Information Source: Patient Exam Limitations: No limitations Nursing and Triage Documentation Reviewed and Agree: Yes Does patient meet sepsis criteria?: No If yes, has appropriate treatment been initiated?: Yes System Inflammatory Response Syndrome: Not Applicable Sepsis Protocol: For patient's 13 years and over: Temp is 96.8 and below OR 101 and greater Pulse >90 BPM Resp >20/minute Acutely Altered Mental Status Are patient's symptoms suggestive of a new infection, such as: -Pneumonia -Skin, Soft Tissue -Endocarditis -UTI -Bone, Joint Infection -Implantable Device -Acute Abdominal Infection -Wound Infection -Meningitis -Blood Stream Catheter Infection -Unknown Review of Systems - Review Of Systems Constitutional: Reports: Weakness, Loss of appetite Eyes: Reports: No symptoms Ears, Nose, Mouth, Throat: Reports: No symptoms Respiratory: Reports: No symptoms Cardiac: Reports: No symptoms GI: Reports: Nausea, Poor appetite, Vomiting : Reports: No symptoms Musculoskeletal: Reports: No symptoms Skin: Reports: No symptoms Neurological: Reports: Anxiety, Emotional problems, Headache Endocrine: Reports: No symptoms Hematologic/Lymphatic: Reports: No symptoms All Other Systems: Reviewed and Negative Past Medical History - Past Medical History Previously Healthy: No (HTN, Meth abuse, CHF) Endocrine: Reports: None Cardiovascular: Reports: Hypertension, CHF Respiratory: Reports: None Hematological: Reports: None Gastrointestinal: Reports: Other (HEP C POSTIVE ) Genitourinary: Reports: None Neuro/Psych: Reports: Seizure, Depression, PTSD, Other (poisoning with rat poison in past ) Musculoskeletal: Reports: None Cancer: Reports: None Last Menstrual Period: 2 weeks - Surgical History General Surgical History: Reports: None - Family History Family History: Reports: Hypertension - Social History Smoking Status: Current every day smoker, Light tobacco smoker Hx Substance Use: No Alcohol Screening: None - Immunizations Tetanus Shot up to Date: Yes Physical Exam - Physical Exam Appearance: Ill-appearing Ill-appearing: Severe Pain Distress: Severe Eyes: BRAULIO, EOMI, Conjunctiva clear Neck: Supple Respiratory: Airway patent, Breath sounds clear, Breath sounds equal, Respirations nonlabored Cardiovascular: RRR GI/: Soft, Nontender, No masses, Bowel sounds normal, No Organomegaly Musculoskeletal: Normal strength, ROM intact, No edema, No calf tenderness Skin: Warm, Dry, Normal color Neurological: Alert, Oriented Psychiatric: Anxious Interpretation - Radiology Interpretation Radiology Interpretation By: Radiologist Radiology Results: Negative Exam Interpreted: CT Scan (head ) - EKG Interpretation Time of EKG #1: 05:10 Rate: Normal Rhythm: Sinus Ectopy: None Interpretation: left atrial enlargement Left ventricular hypertrophy Physician Notification - Case Discussed Physician Notified: Dr Lagos Time of Notification: 06:50 (ok to admit to SCU ) Critical Care Note - Critical Care Note Total Time (mins): 40 Course - Course Hematology/Chemistry: 07/19/18 05:15 07/19/18 05:15 Orders, Labs, Meds: Lab Review 07/19/18 07/19/18 07/19/18 05:15 05:15 05:15 WBC 11.66 H RBC 5.53 H Hgb 13.7 Hct 43.6 MCV 78.8 L MCH 24.8 L MCHC 31.4 L RDW Coeff of Anastasia 14.8 Plt Count 336 Immature Gran % (Auto) 0.3 Neut % (Auto) 86.4 Lymph % (Auto) 7.4 L Perkins % (Auto) 5.1 Eos % (Auto) 0.5 Baso % (Auto) 0.3 Immature Gran # (Auto) 0.0 Neut # (Auto) 10.1 H Lymph # (Auto) 0.9 Perkins # (Auto) 0.6 Eos # (Auto) 0.1 Baso # (Auto) 0.0 Sodium 140.6 Potassium 3.37 L Chloride 102.3 Carbon Dioxide 26.8 Anion Gap 14.87 BUN 9.1 Creatinine 0.85 Estimated GFR (MDRD) 79.00 BUN/Creatinine Ratio 10.70 Glucose 104.4 Lactic Acid Calcium 9.42 Total Bilirubin 0.36 AST 40.6 H ALT 22.7 Alkaline Phosphatase 88.5 Total Creatine Kinase 115.5 CK-MB (CK-2) 1.160 CK-MB (CK-2) % 1.0000 Total Protein 8.21 H Albumin 4.42 Globulin 3.79 Albumin/Globulin Ratio 1.16 Amylase 73.1 Lipase 75.1 Procalcitonin Serum , Qual Plasma/Serum Alcohol < 10.0 Influ A Molecular Assay Influ B Molecular Assay 07/19/18 07/19/18 07/19/18 05:15 05:15 05:15 WBC RBC Hgb Hct MCV MCH MCHC RDW Coeff of Anastasia Plt Count Immature Gran % (Auto) Neut % (Auto) Lymph % (Auto) Perkins % (Auto) Eos % (Auto) Baso % (Auto) Immature Gran # (Auto) Neut # (Auto) Lymph # (Auto) Perkins # (Auto) Eos # (Auto) Baso # (Auto) Sodium Potassium Chloride Carbon Dioxide Anion Gap BUN Creatinine Estimated GFR (MDRD) BUN/Creatinine Ratio Glucose Lactic Acid 1.85 Calcium Total Bilirubin AST ALT Alkaline Phosphatase Total Creatine Kinase CK-MB (CK-2) CK-MB (CK-2) % Total Protein Albumin Globulin Albumin/Globulin Ratio Amylase Lipase Procalcitonin 0.06 Serum , Qual Negative Plasma/Serum Alcohol Influ A Molecular Assay Influ B Molecular Assay 07/19/18 05:24 WBC RBC Hgb Hct MCV MCH MCHC RDW Coeff of Anastasia Plt Count Immature Gran % (Auto) Neut % (Auto) Lymph % (Auto) Perkins % (Auto) Eos % (Auto) Baso % (Auto) Immature Gran # (Auto) Neut # (Auto) Lymph # (Auto) Perkins # (Auto) Eos # (Auto) Baso # (Auto) Sodium Potassium Chloride Carbon Dioxide Anion Gap BUN Creatinine Estimated GFR (MDRD) BUN/Creatinine Ratio Glucose Lactic Acid Calcium Total Bilirubin AST ALT Alkaline Phosphatase Total Creatine Kinase CK-MB (CK-2) CK-MB (CK-2) % Total Protein Albumin Globulin Albumin/Globulin Ratio Amylase Lipase Procalcitonin Serum , Qual Plasma/Serum Alcohol Influ A Molecular Assay Negative by naat Influ B Molecular Assay Negative by naat Orders Category Date Time Status EKG-(ED ONLY) Stat CARDIO 07/19/18 05:02 Completed ACTIVITY .Up ad Aury CARE 07/19/18 06:36 Active INTAKE & OUTPUT Q8HR CARE 07/19/18 06:36 Active INTAKE & OUTPUT Q8HR CARE 07/19/18 06:38 Active VITAL SIGNS Q4HR CARE 07/19/18 06:36 Active VTE PREVENTION .SCD 24 Hours CARE 07/19/18 06:36 Active CARDIAC DIET DIETARY 07/19/18 Breakfast Ordered ED IV/MEDIPORT/POWERPORT .ONCE EMERGENCY 07/19/18 04:58 Active AMYLASE Stat LAB 07/19/18 05:15 Completed BASIC METABOLIC PANEL DAILY@0600 LAB 07/20/18 06:00 Ordered BASIC METABOLIC PANEL DAILY@0600 LAB 07/21/18 06:00 Ordered CBC W/ AUTO DIFF DAILY@0600 LAB 07/20/18 06:00 Ordered CBC W/ AUTO DIFF DAILY@0600 LAB 07/21/18 06:00 Ordered CBC W/ AUTO DIFF Stat LAB 07/19/18 05:15 Completed COMPREHENSIVE METABOLIC PANEL Stat LAB 07/19/18 05:15 Completed CREATINE KINASE Stat LAB 07/19/18 05:15 Completed DRUG SCREEN, URINE, RAPID Stat LAB 07/19/18 04:58 Ordered ETOH LEVEL [BLOOD ALCOHOL] Stat LAB 07/19/18 05:15 Completed FLU A/B MOLECULAR Stat LAB 07/19/18 05:24 Completed HCG QUALITATIVE [SERUM ] Stat LAB 07/19/18 05:15 Completed LACTIC ACID Stat LAB 07/19/18 05:15 Completed LIPASE Stat LAB 07/19/18 05:15 Completed PROCALCITONIN Stat LAB 07/19/18 05:15 Completed 0.9 % Sodium Chloride [Premix 200Ml 0.86% Sodium MEDS 07/19/18 07:00 Ordered Chloride] 1 bag Nicardipine in NaCl, Iso-Osm [Cardene-NaCl 20 mg/200 ml Soln] 20 mg IV 5 mg/hr 0.9 % Sodium Chloride [Saline Flush] MEDS 07/19/18 04:59 Ordered 1 syr IVF PRN PRN Enalaprilat Dihydrate [Vasotec IV] MEDS 07/19/18 05:37 Discontinued 1.25 mg IVP ONCE STA Labetalol HCl [Trandate] MEDS 07/19/18 05:01 Discontinued 20 mg IVP ONCE STA Labetalol HCl [Trandate] MEDS 07/19/18 06:31 Discontinued 20 mg IVP ONCE STA Nicardipine in NaCl, Iso-Osm [Cardene-NaCl 20 mg/200 ml MEDS 07/19/18 06:52 Discontinued Soln] 200 ml IV .STK-MED Ondansetron HCl/Pf [Zofran 4 mg/2 ml] MEDS 07/19/18 06:37 Ordered 4 mg IVP Q6H PRN Potassium Chloride in 0.9%NaCl [Sodium Chloride 0.9%- MEDS 07/19/18 07:00 Ordered KCl 20 Meq] 1,000 ml IV 70 mls/hr RESUSCITATION STATUS Routine OTHERS 07/19/18 06:36 Ordered CHEST, 1V AP ONLY Stat RADS 07/19/18 04:[address] HEAD W/O CONTRAST Stat RADS 07/19/18 04:58 Completed Medications Generic Name Dose Route Start Last Admin Trade Name Freq PRN Reason Stop Dose Admin Nicardipine/Sodium Chloride 20 200 mls @ 50 mls/hr 07/19/18 07:00 mg/ Sodium Chloride IV .Q4H ARMOND Protocol 5 MG/HR Potassium Chloride/Sodium Chloride 1,000 mls @ 70 mls/hr 07/19/18 07:00 Sodium Chloride 0.9%-Kcl 20 Meq IV .[id number] ARMOND Ondansetron HCl 4 mg 07/19/18 06:37 Zofran 4 Mg/2 Ml IVP Q6H PRN Nausea / Vomiting Sodium Chloride 1 syr 07/19/18 04:59 07/19/18 06:38 Saline Flush IVF 1 syr PRN PRN Administration To flush IV Discontinued Medications Generic Name Dose Route Start Last Admin Trade Name Freq PRN Reason Stop Dose Admin Enalaprilat 1.25 mg 07/19/18 05:37 07/19/18 05:40 Vasotec Iv IVP 07/19/18 05:38 1.25 mg ONCE STA Administration Labetalol HCl 20 mg 07/19/18 05:01 07/19/18 05:25 Trandate IVP 07/19/18 05:02 20 mg ONCE STA Administration Labetalol HCl 20 mg 07/19/18 06:31 07/19/18 06:37 Trandate IVP 07/19/18 06:32 20 mg ONCE STA Administration Vital Signs: Temp Pulse Resp BP Pulse Ox 07/19/18 04:30 97.7 F 96 H 20 228/155 H 96 Departure - Departure Time of Disposition: 07:08 Disposition: ADMITTED INPATIENT Discharge Problem: Hypertensive crisis, Seizure Condition: Stable Pt referred to PMD for follow-up: No IPMP verified?: No Allergies/Adverse Reactions: Allergies divalproex sodium [From Depakote] Adverse Reaction (Verified 06/13/18 17:17) tramadol [From Ultram] Adverse Reaction (Verified 06/13/18 17:17) vancomycin Adverse Reaction (Verified 06/13/18 17:17) Home Medications: Ambulatory Orders 1 [No Reported Medications] 07/19/18
[2018-07-19] MEDS ORDERED: VASOTEC IV IVP STA (05:37)
[2018-07-19] MEDS ORDERED: ZOFRAN 4 MG/2 ML IVP PRN (06:37)
--- NOTE | 2018-07-19 06:50 | CT ---
EXAM: CT head without contrast 07/19/2018. Sagittal and coronal reformatted images obtained HISTORY: Seizure COMPARISON: 05/07/2018 FINDINGS: There is no evidence of intracranial hemorrhage. The midline is maintained. There is no h ydrocephalus. No cerebellar tonsillar ectopia. Evaluation of the calvarium shows no fracture. Th e mastoid air cells are normally pneumatized. IMPRESSION: No acute intracranial abnormality.
[2018-07-19] MEDS ORDERED: CARDENE-NACL 20 MG/200 ML SOLN 200 ML IV ONE (06:52)
[2018-07-19] MEDS ORDERED: SODIUM CHLORIDE 0.9%-KCL 20 MEQ 1,000 ML IV SCH (07:00)
--- NOTE | 2018-07-19 07:07 | DI ---
Exam: Single view of the chest. Comparison: 06/13/2018. Reason for exam: Cough. FINDINGS: No pneumothorax, pleural effusion, or focal consolidation. The cardiac silhouette is not enlarged. The imaged osseous structures appear grossly unremarkable without acute fracture. Impression: No acute cardiopulmonary process.
[2018-07-19] MEDS: CARDENE-NACL 20 MG/200 ML SOLN 20 MG in PREMIX 200ML 0.86% SODIUM CHLORIDE 1 BAG IV SCH ×2 (07:10→14:39)
--- NOTE | 2018-07-19 08:19 | PCM ---
- Chief Complaint Chief Complaint: Seizure, HTN Emergency, Ran out of medications. - History of Present Illness History of Present Illness: 28 yo CF w/ history of seizures, history of HTN emergency, history of non compliance with medical regimen presented again to ED today at 0450 with c/o SZ , HTN Crisis, no meds in 1-[address] Ortega called me at 0645 this am with patient history and we discussed the care for the patient. She was dropped at ER by boyfriend who noted that she has been having seizures. The patient does not remember these. She complained to DR. Ortega about significant generalized , could not rate these out of 10, emesis multiple times and felt poorly as if she were going to faint. Hx noted again to be +Sz, allergy depakote, and significant HTN but has not taken meds in a few weeks, as she ran out of them. No medical card, no PCP, admitted 04/2018 for the same issues. Vitals noted to be temp 97.7, pulse 96, RR 20 BP 228/155 and pusle ox 96. WBC 11.66, hgb 13.7, plt 336. CMP showed sodium 140.6, K+ 3.37, CL 102.3, BUN 9.1, CR 0.85, Glucose 104.4. Amylase and lipase were 71.1 and 75.1 respectively. Her SErum ETOH was negative. AST mildly elevated at 40.6. lactic acid 1.85, procalcitonin was 0.06 and HCG was negative. EKG done in ER, LAE, LVH else non specific per DR. Ortega. She was placed on athletic monitor. Labs ordered as noted, UDS was ordered. She was given 40mg IVP of labetalol, 1.25 vasotec and then placed on to nicardipine drip at 0700. Fluids started with NS at 70 ml/hour with 20meq of K+CL-. REviewed ER note further upon arrival to hospital and she had reported weakness, loss of appetite. N/V but no constipation/diarrhea. Prominent anxiety, emotional problems, . History of HTN, history of meth use , ?CHF by history, Seizures, Hep C +, depression, PTSD and LMP 2 weeks ago, normal per patient. Exam from ER reviewed and sick appearing, pain appearing, eyes reported normal, Resp/CV/GI/MSK and Neuro reported NL. Psych anxious. Personally reviewed her H+P/D/C summary from 05/07/18-05/08/18 and noted very similar story. She was admitted at that time with HTN Emergency, we had discussed problems with clonidine, rebound HTN and her history of cerebral aneurysm. UDS 05/07/18 showed + AMP, negative remainder. She was given education on zestoretic, HTN urgency, smoking cessation, drug cessation and was supposed to see me back in office 8 am the following sunday but she has since no showed with me in clinic x 2 and has never established. She was changed from lisinopril plain to zestoretic daily and clonidine 0.2mg BID. These meds are inexpensive and should not cause issues even as graham pay. She was d/c free, BP normal and asked to f/u with me in office but again never arrived. She declind influenza vaccine, declined pneumonia vaccine. generalized worse with motion, worse with coughing, better with rest and recumbent position. Reports no drug use in a long time. Chronic fatigue/exhaustion/no energy. No medical card "I honestly never went to get it" Ran out o fmeds because her mother did not get her there. "I did nothing wrong." I noted that she had nothing wrong. THC 4-5 months ago, meth 5 months ago, cocaine 1-2 years. HIV testing previously negative. Hep C partialy treated. H/O IV drug use. is easing up, feeling better now that the nicardipine drip is on board. - Review of Systems Constitutional: weakness, fatigue, loss of appetite Eyes: blurred vision. No: double-vision, discharge, itching, pain, redness, photophobia, other Ears: No: pain, bleeding, drainage, ringing, hearing loss, other Nose: No: bleeding, congestion, discharge, other Throat: No: pain, swelling, voice change, other Mouth: No: bleeding, pain, swelling, other Respiratory: No: cough, shortness of air, wheeze, hemoptysis, pain with breathing, other Cardiovascular: No: chest pain, left arm pain, diaphoresis, PND, orthopnea, edema, palpitations, syncope, other Gastrointestinal: nausea, vomiting. No: abdominal pain, diarrhea, melena, hematemesis, hematochezia, dysphagia, constipation, other Genitourinary: No: dysuria, hematuria, frequency, incontinence, flank pain Neurological: headache, dizziness, seizure, weakness. No: other, numbness, speech difficulty, problems with walking, tremor, fainting Musculoskeletal: No: pain, swelling in joints, other Skin: No: rash, pruritus, lacerations, wounds, bruising, other Immunology: No: hives, itching, frequent infections, difficulty healing, other Hematology: easy bruising. No: easy bleeding, swollen glands, other Endocrine: No: weight changes, cold intolerance, heat intolerance, excessive thirst, excessive hunger, polyuria, other Psychiatric: depression, anxiety, sleeplessness, hopelessness. No: suicidal, hallucinations Habits: tobacco use, substance use. No: alcohol use, other - Past Medical History Past Medical History: HTN, meth abuse, history of CHF, history of Hep C, poisoning with rat poison, history of TIA. reported cancer, ?pericardial effusion. Seizures. - Past Surgical History Past Surgical History: None reported. - Allergies Allergies/Adverse Reactions: Allergies Allergy/AdvReac Type Severity Reaction Status Date / Time divalproex sodium AdvReac Verified 06/13/18 17:17 [From Depakote] tramadol [From Ultram] AdvReac Verified 06/13/18 17:17 vancomycin AdvReac Verified 06/13/18 17:17 - Medications Medications: Medications Generic Name Dose Route Start Last Admin Trade Name Freq PRN Reason Stop Dose Admin Nicardipine/Sodium Chloride 20 200 mls @ 50 mls/hr 07/19/18 07:00 07/19/18 07 :10 mg/ Sodium Chloride IV 5 mg/hr .Q4H ARMOND 50 mls/hr Administration Protocol 5 MG/HR Potassium Chloride/Sodium Chloride 1,000 mls @ 70 mls/hr 07/19/18 07:00 07/19 07:08 Sodium Chloride 0.9%-Kcl 20 Meq IV 70 mls/hr .[id number] ARMOND Administration Ondansetron HCl 4 mg 07/19/18 06:37 Zofran 4 Mg/2 Ml IVP Q6H PRN Nausea / Vomiting Sodium Chloride 1 syr 07/19/18 04:59 07/19/18 06:38 Saline Flush IVF 1 syr PRN PRN Administration To flush IV - Family History Past Family History: hypertension. 4 children healthy. Mother allergies, heart prolbems in female <65, lipid/cholesterol disease. maternal grandmother cancer , DM, heart disease <65 yr old, lipid disease, HTN, maternal grandfather Heart disease early, HTN/Lipid issues. - Social History Past Social History: light smoker, not interested in cessation. Occasional THC. Former meth user. Edentulous. [employer], started smoking age 12. 2 soda per day. Menarche age 10, . - Vital Signs Temperature: 97.7 F Pulse Rate: 96 Respiratory Rate: 20 Blood Pressure: 228/155 O2 Sat by Pulse Oximetry: 96 - Body Composition Height: 5 ft 3 in Weight: 148 lb Body Mass Index (BMI): 26.2 - Physical Examination HEENT: Constitutional: Appearance-No acute distress, Consistent with stated age. Orientation- Oriented x 3, alert Build and Nutrition-[mildly overweight] General- Patient is pleasant and cooperative with the interview and exam. Feeling better now that is resolving. Integumentary: General-No rashes, ulcers or lesions. Palpation- Normal skin moisture/turgor. Skin is warm to touch, appropriate. Capillary refill is normal bilateral Upper and lower extremity. Head/Neck: Head- normocephalic and atraumatic. Neck- without visible/palpable lumps or pulsations. Palpation- No bony tenderness about head/neck along frontal, occipital, temporal, parietal, mastoid, jawline, zygoma, orbit or any other location. NO temporal artery tenderness. No TMJ tenderness. Neck Supple. Thyroid-No thyromegaly, no nodules Eye: Pupils large bilaterally, symmetrical and responsive to direct/indirect light. Bilaterally PERRLA, EOMI. No discharge. Upper and lower eyelids are normal. Sclera/conjunctiva normal without discharge. Cornea is normal and clear. Lens is normal. Eyeball appears normal. No ciliary flushing, no conjunctival injection. ENMT: Pinna- normal without tenderness or erythema. External auditory canal Left- normal without erythema or discharge, no excessive cerumen. External auditory canal Right-normal without erythema or discharge, no excessive cerumen. TM left- [place]/pearly, normal light reflex and anatomy TM Right- [place]/ pearly, normal light reflex and anatomy Hearing Assessment-normal to conversational speech. Nose and sinus- No sinus tenderness along frontal/ maxillary region. External appearance normal and midline. Nares- bilateral quiet airflow, no discharge. Nasal mucosa- No bleeding noted and no ulcerations observed. [place], moist. Turbinates non boggy. Lips- normal color, moist without cracks/lesions Oral Cavity/Palate- hard/soft palate intact without lesions, oral mucosa pink and moist. EDENTULOUS Tongue normal midline. Oropharynx- no pharyngeal erythema, Uvula midline. No post nasal drip. No exudate. Salivary glands- Non tender to palpation CHEST/LUNG: Inspection- symmetric chest wall no pectus deformity. Normal effort , no distress, no use of accessory muscles. Palpation- nontender sternum, ribline. No abnormal pulsations. Auscultation- Breath sounds normal throughout all lung reed. Normal tracheal sounds, Normal bronchial sounds overlying sternum, Bronchovessicular sounds normal between scapulae posteriorly, Normal vessicular breath sounds heard throughout periphery. Lungs are clear today. Adventitious sounds- No wheezes, rales, rhonchi. CARDIOVASCULAR: Carotid artery- normal, no bruits or abnormal pulsations. Jugular vein- no pulsations. Palpation/Percussion- Normal PMI, no palpable thrill Auscultation- Regular rate and rhythm. No murmur noted in sitting, supine positions. Extremities- no digital clubbing, cyanosis, edema, increased warmth. ABDOMEN: Inspection- normal and no visible pulsations. Normal contour. Auscultation- Bowel sounds normal, no abdominal bruits. Palpation/Percussion- soft, non-tender, no rebound tenderness, no rigidity (guarding), no jar tenderness, no masses. Liver-no hepatomegaly, Spleen no splenomegaly, Hernias - none. Rectal not examined. Peripheral Vascular: Upper extremity Left- Normal temperature with pink nailbeds and no ulcerations. Upper extremity Right- Normal temperature with pink nailbeds and no ulcerations. Lower extremity- Normal temperature with pink nailbeds and no ulcerations. DP pulses 2+ bilaterally. Pedal hair intact. Normal capillary refill. Edema- No edema. Musculoskeletal: Generalized-No generalized swelling or edema of extremities, no digital clubbing or cyanosis, neurovascularly intact all four extremities. Upper extremity- Symmetrical posture. No visible deformity. Normal sensation along medial and lateral upper extremity proximally and distally. NO tenderness overlying shoulder, lateral/medial epicondyle. [place]rier Take Off Tender 5/5 and strength 5/5 bilateral UE. Elbow palpated, no tenderness overlying olecranon. Normal supination, pronation to active/passive ROM and to resisted rotation. Bicep insertion/tricep insertion appear normal without obvious pathology. Rotator cuff evaluated and intact. Normal wrist ROM bilaterally. Normal hand movement, intrinsic muscles of hands normal. No tenderness to palpation of hands/wrists/ elbows. Lower extremity- Hip: Not tender to palpation, no pain, no swelling, edema or erythema of surrounding tissue, normal strength and tone. Normal appearing hip ROM bilaterally without pain. Knee: Knee ROM normal. No tenderness overlying trochanters, no tenderness about patella, quad tendon, patellar tendon. No tenderness at tibial tuberosity. Ankle: normal ROM not tender to palpation along medial/lateral malleolus. Spine/Ribs- No deformities, masses or tenderness, no known fractures, normal strength, Normal ROM. Normal stability No tenderness along C/T/L spine. Normal appearing ROM about spine. Neurological: General- Moves all 4 extremities symmetrically. Symmetrical face and body posture. Cranial nerves- individually evaluated II-XII and intact. PERRLA, Normal EOMI, visual/special senses appear intact, Face is symmetrical and normal sensation/movement, normal tongue, normal strength/posture of neck musculature. Reflexes- intact with DTR 2+ patellar, Achilles, bicep, brachial, tricep. Ankle clonus normal with 2 beats. Strength- 5/5 bilateral UE and LE. Soft touch- intact bilateral UE and LE. Temperature sensation- intact bilateral UE and LE. Neuropsych: Oriented- Person, place, time. (AAOx3), Mood/affect- normal and congruent. Able to articulate well. Speech-Normal speech, normal rate, normal tone, normal use of language, volume and coherence. Thought content- normal with ability to perform basic computations and apply abstract thought/reason. Associations- intact, no SI/HI, no hallucinations, delusions, obsessions. Judgment/insight- Questionable Memory-Recall intact, remote and recent memory intact. Knowledge- Age appropriate fund of knowledge, concentration and attention span normal. Lymphatic: Head/Neck- normal size and non tender to palpation. Axillary- normal size and non tender to palpation. Femoral and Inguinal- normal size and non tender to palpation. - Lab/Tests/Diagnostic Imaging Lab/Tests/Diagnostic Imaging: Laboratory Last Values WBC 11.66 K/ul (4.6-10.2) H 07/19/18 05:15 RBC 5.53 10^6/ul (4.20-5.40) H 07/19/18 05:15 Hgb 13.7 g/dl (12.0-16.0) 07/19/18 05:15 Hct 43.6 % (37.0-47.0) 07/19/18 05:15 MCV 78.8 fl (81.0-99.0) L 07/19/18 05:15 MCH 24.8 pg (27.0-31.0) L 07/19/18 05:15 MCHC 31.4 (31.8-35.4) L 07/19/18 05:15 RDW Coeff of Anastasia 14.8 % (11.6-14.8) 07/19/18 05:15 Plt Count 336 10^3/uL (140-440) 07/19/18 05:15 Immature Gran % (Auto) 0.3 % (0.0-5.0) 07/19/18 05:15 Neut % (Auto) 86.4 07/19/18 05:15 Lymph % (Auto) 7.4 (10.0-50.0) L 07/19/18 05:15 [place] % (Auto) 5.1 (0-10) 07/19/18 05:15 Eos % (Auto) 0.5 % (0.0-7.0) 07/19/18 05:15 Baso % (Auto) 0.3 % (0.0-3.0) 07/19/18 05:15 Immature Gran # (Auto) 0.0 (0.0-1.0) 07/19/18 05:15 Neut # (Auto) 10.1 K/ul (2.0-6.9) H 07/19/18 05:15 Lymph # (Auto) 0.9 K/uL (0.60-3.4) 07/19/18 05:15 [place] # (Auto) 0.6 K/uL (0.4-2.0) 07/19/18 05:15 Eos # (Auto) 0.1 K/ul (0.0-0.7) 07/19/18 05:15 Baso # (Auto) 0.0 K/uL (0-0.2) 07/19/18 05:15 Sodium 140.6 mmol/L (134.5-145) 07/19/18 05:15 Potassium 3.37 mmol/L (3.5-5.1) L 07/19/18 05:15 Chloride 102.3 mmol/L (98-107) 07/19/18 05:15 Carbon Dioxide 26.8 mmol/L (22-30.0) 07/19/18 05:15 Anion Gap 14.87 07/19/18 05:15 BUN 9.1 mg/dL (7-17) 07/19/18 05:15 Creatinine 0.85 mg/dL (0.60-1.30) 07/19/18 05:15 Estimated GFR (MDRD) 79.00 mL/min 07/19/18 05:15 BUN/Creatinine Ratio 10.70 07/19/18 05:15 Glucose 104.4 mg/dL (74-106) 07/19/18 05:15 Lactic Acid 1.85 mmol/L (0.7-2.1) 07/19/18 05:15 Calcium 9.42 mg/dL (8.4-10.2) 07/19/18 05:15 Total Bilirubin 0.36 mg/dL (0.2-1.3) 07/19/18 05:15 AST 40.6 U/L (14-36) H 07/19/18 05:15 ALT 22.7 U/L (0-35) 07/19/18 05:15 Alkaline Phosphatase 88.5 U/L (38-126) 07/19/18 05:15 Total Creatine Kinase 115.5 U/L (30-135) 07/19/18 05:15 CK-MB (CK-2) 1.160 ng/ml (0.0-2.38) 07/19/18 05:15 CK-MB (CK-2) % 1.0000 07/19/18 05:15 Total Protein 8.21 g/dL (6.3-8.2) H 07/19/18 05:15 Albumin 4.42 g/dL (3.5-5.0) 07/19/18 05:15 Globulin 3.79 07/19/18 05:15 Albumin/Globulin Ratio 1.16 07/19/18 05:15 Amylase 73.1 U/L (30-110) 07/19/18 05:15 Lipase 75.1 U/L (23-300) 07/19/18 05:15 Procalcitonin 0.06 ng/mL (0.09) 07/19/18 05:15 Serum , Qual Negative (NEGATIVE) 07/19/18 05:15 Urine Opiates Screen Negative (NEGATIVE) 07/19/18 09:15 Ur Oxycodone Screen Negative (NEGATIVE) 07/19/18 09:15 Urine Methadone Screen Negative (NEGATIVE) 07/19/18 09:15 Ur Propoxyphene Screen Negative (NEGATIVE) 07/19/18 09:15 Ur Barbiturates Screen Negative (NEGATIVE) 07/19/18 09:15 U Tricyclic Antidepress Negative (NEGATIVE) 07/19/18 09:15 Ur Phencyclidine Scrn Negative (NEGATIVE) 07/19/18 09:15 Ur Amphetamine Screen Negative (NEGATIVE) 07/19/18 09:15 U Methamphetamines Scrn Negative (NEGATIVE) 07/19/18 09:15 U Benzodiazepines Scrn Negative (NEGATIVE) 07/19/18 09:15 Urine Cocaine Screen Negative (NEGATIVE) 07/19/18 09:15 U Cannabinoids Screen Negative (NEGATIVE) 07/19/18 09:15 Plasma/Serum Alcohol < 10.0 mg/dL (0.0-50.0) 07/19/18 05:15 Influ A Molecular Assay Negative by naat (NEGATIVE) 07/19/18 05:24 Influ B Molecular Assay Negative by naat (NEGATIVE) 07/19/18 05:24 CT HEad negative for intracranial pathology CXR: Negative. - Assessment (1) Hypertensive emergency Status: Acute Code(s): I16.1 - HYPERTENSIVE EMERGENCY SNOMED Code(s): 699798951698457 (2) Smokes 1 pack of cigarettes per day Status: Acute Code(s): F17.210 - NICOTINE DEPENDENCE, CIGARETTES, UNCOMPLICATED SNOMED Code(s): 22282723 (3) Seizure Status: Acute Code(s): R56.9 - UNSPECIFIED CONVULSIONS SNOMED Code(s): 90305052 (4) Headache Status: Inactive Code(s): R51 - HEADACHE SNOMED Code(s): 01962942 (5) History of marijuana use Status: Inactive Code(s): Z87.898 - PERSONAL HISTORY OF OTHER SPECIFIED CONDITIONS SNOMED Code(s): 774614521 (6) History of methamphetamine abuse Status: Inactive Code(s): Z87.898 - PERSONAL HISTORY OF OTHER SPECIFIED CONDITIONS SNOMED Code(s): 500263698 (7) History of intravenous drug abuse Status: Acute Code(s): Z87.898 - PERSONAL HISTORY OF OTHER SPECIFIED CONDITIONS SNOMED Code(s): 95287558210762220 - Plan Plan: Hypertensive Emergency: Significant threat to life/function based on this dx alone. Discussed >180 SBP or >120 DBP with suggests presence of end organ damage and supports dx of HTN emergency. She has been non compliant, not taking meds as recommended. Discussed differences between HTN urgency and emergency. Also discussed medications as first line with JNC 8. Guidelines support goal of BP to be <140/90 for this patient. Monitor for , chest pain, visual changes. We will monitor electrolytes and monitor symptoms. Admitted to hospital as OBS to SCU with close monitoring. She was started on nicardipine drip and we will monitor her BP as it drops. I will resume her normal home meds and titrate the nicardipine down overnight. She was started on 5mg/hr, which is reasonable, was given clonidine 0.2 by me on floor and will resume her zestoretic. She has had vasotec and labetalol 20x2 in ER. We reviewed rebound HTN, which is likely present again. She should recover well with the clonidine restarted. No morphine, no NSAIDS. Repeat labs in the am tomorrow. CT head negative. Urine preg negative. ETOH negative, UDS pending. - Admit to observation status SCU, - Telemetry. - CBC/CMP in am - Nicardipine drip titrate to <140/90. - Resume clonidine 0.2mg BID - REsume lisinopril 20mg daily - REsume HCTZ 25 mg daily. - Await UDS. Reported Seizure: No obvious post ictal state. No h/o loss of control of bowel/ bladder. ?Seizure. Fall precautions enacted. - Keppra 500 BID - F/U w/ neurology as outpt Headache: ddx HTN induced , migraine, tension , cluster . No aura prior to . Could also be sinus headache, Tension type , analgesic , trigeminal autonomic cephalgia, cluster. These are not awakening the patient from sleep. These are not getting worse with time. No lacrimation, salivation, rhinorrhea, no facial flushing. No pin point/needle pin like symptoms on face/scalp. Reviewed secondary causes of (HTN), no reported trauma. Reviewed acute treatments. Monitor for improvement over next 24-48 hours. - NO Morphine - Reviewed Tylenol, as potential benefits in some patients. - No NSAIDS for now. Reviewed antiemetics Reglan, Compazine tend to be best but do have some side effects of concern. Phenergan can be of benefit but may cause some sedation. Zofran ODT can help with nausea, R/b/A and SE d/w patient. Discussed chronic suppression medications as well. r/b/A to Elavil d/ w patient, BB d/w patient and CCB d/w patient. Hypokalemia: Reassess in am, if remains <4.0 I will give her oral K+ with breakfast. Can expect increase of ~0.1 for every 10meq given. -K+CL- in fluds. Light Smoker: Tobacco Cessation discussed today for 2 minutes. We reviewed lifestyle choices and discussed quitting. Ready to quit status discussed. The risks and hazards of continued tobacco abuse were discussed with the patient today and total tobacco cessation as recommended. It was clearly and unambiguously explained that continued tobacco usage will adversely affect overall morbidity and mortality of the patient. Patient was informed that tobacco use can lead to numerous cancers, worsening of cardiovascular and pulmonary systems and that lung damage is often permanent and irreversible. I advised the patient to inform me if any further assistance is requested, as we can offer counseling services, nicotine replacement inhaled, patch, lozenge, gum, or prescription medications to include Chantix or Wellbutrin for assistance. I will reassess the interest in tobacco cessation at the next and all subsequent visits. - Declined nicotine patch History of IV Drug use: Continue to monitor safe practices. Regular HIV/HEP C checking. Declined this today. Activity: Up with assist. Diet: Regular. Disposition: Suspect admit for 1-2 days based on HTN Emergency. crisis. I would like to make sure her BP remains controlled on oral meds 07/19-07/20 and if stable d/c on sunday07/21/18. She agrees with this plan. High risk process, reviewed imaging, reviewed labs, reviewed EKG. Total >70 minutes spent reviewing history, talking with Er team, talking with patient, med rec, this does not include documentation time.
[2018-07-19] MEDS ORDERED: TYLENOL PO STA (11:51)
[2018-07-19] MEDS ORDERED: CATAPRES PO STA (13:25)
[2018-07-19] MEDS ORDERED: CATAPRES PO SCH (14:00)
[2018-07-19] MEDS ORDERED: CARDENE-NACL 20 MG/200 ML SOLN 20 MG in PREMIX 200ML 0.86% SODIUM CHLORIDE 1 BAG IV SCH (14:00)
[2018-07-19] MEDS ORDERED: ZESTRIL PO SCH (14:00)
[2018-07-19] MEDS ORDERED: HYDROCHLOROTHIAZIDE PO SCH (14:00)
[2018-07-19] MEDS ORDERED: KEPPRA PO SCH (14:00)
[2018-07-19 17:33] VITALS: BP 228/155; TEMP 97.7
--- NOTE | 2018-07-19 17:35 | PCM.DC ---
Final Diagnosis: 1. HTN Urgency 2. HEadache 3. Reported Seizure 4. History of drug use 5. Smoking 1 pack per day 6. Non compliance 7. Leukocytosis 8. Hypokalemia 9. History of cerebral aneursym. Leaving AMA (1) Hypertensive emergency Status: Acute Code(s): I16.1 - HYPERTENSIVE EMERGENCY SNOMED Code(s): 217396761761901 (2) Smokes 1 pack of cigarettes per day Status: Acute Code(s): F17.210 - NICOTINE DEPENDENCE, CIGARETTES, UNCOMPLICATED SNOMED Code(s): 55165995 (3) Seizure Status: Acute Code(s): R56.9 - UNSPECIFIED CONVULSIONS SNOMED Code(s): 22548487 (4) Headache Status: Inactive Code(s): R51 - HEADACHE SNOMED Code(s): 90070911 (5) History of marijuana use Status: Inactive Code(s): Z87.898 - PERSONAL HISTORY OF OTHER SPECIFIED CONDITIONS SNOMED Code(s): 538588350 (6) History of methamphetamine abuse Status: Inactive Code(s): Z87.898 - PERSONAL HISTORY OF OTHER SPECIFIED CONDITIONS SNOMED Code(s): 155995627 (7) Leukocytosis Status: Acute Code(s): D72.829 - ELEVATED WHITE BLOOD CELL COUNT, UNSPECIFIED SNOMED Code(s): 807791173, 243998701 (8) Hypokalemia Status: Inactive Code(s): E87.6 - HYPOKALEMIA SNOMED Code(s): 10088784 Reason for Hospitalization: Hypertensive crisis, reported seizure, Headache, low K+, ran out of BP meds. History of drug use. Prognosis at Discharge: Guarded. Patient leaving AMA as she "NEEDS A CIGARETTE." Condition at Discharge: Improved but not yet medically maximized. Patient cognitively aware, verbalized desire to leave AMA. She is aware of this decision aware it could lead to her . She really wants to leave, wants to go have a cigarette. Family in room tried to talk with her, Shruthi nurse tried to talk with her, I tried to talk with her and had very candid conversation about the BP, that this could be fatal and recommended that she needs to take this seriously. SHe is 28 yr old and she is no longer able to make excuses or blame others. She is not caring for herself and her decision may lead to her . She is not suicidal and is capable of making this decision based on the conversation. No slurring, she is awake and fully aware of her decision and reported to myself an to Shruthi the same. I discussed that she needs to get medical card, work on smoking cessation and to obtain PCP. We will not be her PCP (DR. Demond elder) . She has chosen to leave AMA> I have sent the home meds she was on plus new med Keppra for ?seizures. REcommend f/u with neurology. Medications at Discharge: Ambulatory Orders Medication Instructions Recorded Clonidine HCl 0.2 mg PO BID 30 Days #60 tablet 07/19/18 Levetiracetam [Keppra] 500 mg PO BID 30 Days #60 tablet 07/19/18 Lisinopril/Hydrochlorothiazide 1 each PO DAILY 30 Days #30 tablet 07/19/18 [Zestoretic 20-25 mg Tablet] Lab/Diagnostics: Laboratory Last Values WBC 11.66 K/ul (4.6-10.2) H 07/19/18 05:15 RBC 5.53 10^6/ul (4.20-5.40) H 07/19/18 05:15 Hgb 13.7 g/dl (12.0-16.0) 07/19/18 05:15 Hct 43.6 % (37.0-47.0) 07/19/18 05:15 MCV 78.8 fl (81.0-99.0) L 07/19/18 05:15 MCH 24.8 pg (27.0-31.0) L 07/19/18 05:15 MCHC 31.4 (31.8-35.4) L 07/19/18 05:15 RDW Coeff of Anastasia 14.8 % (11.6-14.8) 07/19/18 05:15 Plt Count 336 10^3/uL (140-440) 07/19/18 05:15 Immature Gran % (Auto) 0.3 % (0.0-5.0) 07/19/18 05:15 Neut % (Auto) 86.4 07/19/18 05:15 Lymph % (Auto) 7.4 (10.0-50.0) L 07/19/18 05:15 [place] % (Auto) 5.1 (0-10) 07/19/18 05:15 Eos % (Auto) 0.5 % (0.0-7.0) 07/19/18 05:15 Baso % (Auto) 0.3 % (0.0-3.0) 07/19/18 05:15 Immature Gran # (Auto) 0.0 (0.0-1.0) 07/19/18 05:15 Neut # (Auto) 10.1 K/ul (2.0-6.9) H 07/19/18 05:15 Lymph # (Auto) 0.9 K/uL (0.60-3.4) 07/19/18 05:15 [place] # (Auto) 0.6 K/uL (0.4-2.0) 07/19/18 05:15 Eos # (Auto) 0.1 K/ul (0.0-0.7) 07/19/18 05:15 Baso # (Auto) 0.0 K/uL (0-0.2) 07/19/18 05:15 Sodium 140.6 mmol/L (134.5-145) 07/19/18 05:15 Potassium 3.37 mmol/L (3.5-5.1) L 07/19/18 05:15 Chloride 102.3 mmol/L (98-107) 07/19/18 05:15 Carbon Dioxide 26.8 mmol/L (22-30.0) 07/19/18 05:15 Anion Gap 14.87 07/19/18 05:15 BUN 9.1 mg/dL (7-17) 07/19/18 05:15 Creatinine 0.85 mg/dL (0.60-1.30) 07/19/18 05:15 Estimated GFR (MDRD) 79.00 mL/min 07/19/18 05:15 BUN/Creatinine Ratio 10.70 07/19/18 05:15 Glucose 104.4 mg/dL (74-106) 07/19/18 05:15 Lactic Acid 1.85 mmol/L (0.7-2.1) 07/19/18 05:15 Calcium 9.42 mg/dL (8.4-10.2) 07/19/18 05:15 Total Bilirubin 0.36 mg/dL (0.2-1.3) 07/19/18 05:15 AST 40.6 U/L (14-36) H 07/19/18 05:15 ALT 22.7 U/L (0-35) 07/19/18 05:15 Alkaline Phosphatase 88.5 U/L (38-126) 07/19/18 05:15 Total Creatine Kinase 115.5 U/L (30-135) 07/19/18 05:15 CK-MB (CK-2) 1.160 ng/ml (0.0-2.38) 07/19/18 05:15 CK-MB (CK-2) % 1.0000 07/19/18 05:15 Total Protein 8.21 g/dL (6.3-8.2) H 07/19/18 05:15 Albumin 4.42 g/dL (3.5-5.0) 07/19/18 05:15 Globulin 3.79 07/19/18 05:15 Albumin/Globulin Ratio 1.16 07/19/18 05:15 Amylase 73.1 U/L (30-110) 07/19/18 05:15 Lipase 75.1 U/L (23-300) 07/19/18 05:15 Procalcitonin 0.06 ng/mL (0.09) 07/19/18 05:15 Serum , Qual Negative (NEGATIVE) 07/19/18 05:15 Urine Opiates Screen Negative (NEGATIVE) 07/19/18 09:15 Ur Oxycodone Screen Negative (NEGATIVE) 07/19/18 09:15 Urine Methadone Screen Negative (NEGATIVE) 07/19/18 09:15 Ur Propoxyphene Screen Negative (NEGATIVE) 07/19/18 09:15 Ur Barbiturates Screen Negative (NEGATIVE) 07/19/18 09:15 U Tricyclic Antidepress Negative (NEGATIVE) 07/19/18 09:15 Ur Phencyclidine Scrn Negative (NEGATIVE) 07/19/18 09:15 Ur Amphetamine Screen Negative (NEGATIVE) 07/19/18 09:15 U Methamphetamines Scrn Negative (NEGATIVE) 07/19/18 09:15 U Benzodiazepines Scrn Negative (NEGATIVE) 07/19/18 09:15 Urine Cocaine Screen Negative (NEGATIVE) 07/19/18 09:15 U Cannabinoids Screen Negative (NEGATIVE) 07/19/18 09:15 Plasma/Serum Alcohol < 10.0 mg/dL (0.0-50.0) 07/19/18 05:15 Influ A Molecular Assay Negative by naat (NEGATIVE) 07/19/18 05:24 Influ B Molecular Assay Negative by naat (NEGATIVE) 07/19/18 05:[address] HEad w/o: Negative. Education Provided to Patient and Family: 1. Take Blood pressure medications: If chest pain go to ER. 2. Smoking Cessation: Tobacco Cessation discussed today for 2 minutes. We reviewed lifestyle choices and discussed quitting. Ready to quit status discussed. The risks and hazards of continued tobacco abuse were discussed with the patient today and total tobacco cessation as recommended. It was clearly and unambiguously explained that continued tobacco usage will adversely affect overall morbidity and mortality of the patient. Patient was informed that tobacco use can lead to numerous cancers, worsening of cardiovascular and pulmonary systems and that lung damage is often permanent and irreversible. I advised the patient to inform me if any further assistance is requested, as we can offer counseling services, nicotine replacement inhaled, patch, lozenge, gum , or prescription medications to include Chantix or Wellbutrin for assistance. I will reassess the interest in tobacco cessation at the next and all subsequent visits. 3. Recommended to not leave hospital AMA: "I MUST HAVE CIGARETTE" - Lengthy discussion today about need to stay, need to get BP in control. She has missed at least 2 outpatient appt with me. She noted she had a lot going on. I noted she has a lot of excuses for how everything is going. She is aware of this. Discussed she is 28 yo, she is able to make her decisions. UDS was negative and she is fully awake and aware of her rights to leave AMA. She has chosen to leave AMA> I told her I would not take as PCP. Prove to me that she is working at bettering herself and I will be there in her corner. I noted that her BP is high enough to kill her. Her family, her children may find her . I discussed the seizures and that I did not know yet if she had seizures. There wsa no mention of her having accident of bowel/bladder, no post ictal state. HEr UDS was negative but having HTN crisis. The patient is aware of risks of the HTN. I will send her home meds today. SHe notes that she has them and just got them but missed them for a few weeks. WE talked about the keppra, she will not likely be able to afford it but until I can know what type of seizure and get her to see neuro she would be best served with that one. She noted understanding. I do not feel that one of the agents that requires monitoring would be a good choice as this would likely cause her issues with lab f/u. She will be lost to f/u again unfortunately. Today she and i had a very lengthy discussion >30 minutes total time discussing why I did not think she should leave. Father/Mother and boyfriend in room. Father was engaged with conversation. She has not went to get her medical card. I discussed I cannot make you get the card all you have to do is show up. "I have had a lot going on." I noted that she has had since 04/2018 from our last hospitalization , she shook her head and said that she knows. "You don't understand the patches are not working and i will leave here to have a cigarette." "I want to go." I discussed if worsening to f/u in ER. WE will not be taking as primary in our clinic. Discussed one last time with family to make sure that she gets f/ u and that I will prepare d/c. 4. Zestoretic sent to pharmacy previous home med 5. Clonidine 0.2mg BID sent to pharmacy previous home med 6. Keppra 500mg BID sent to pharmacy. 7. Seizure precautions encouraged. Follow-ups: 1. [facility] [place] provided to patient. I will not be accepting for primary as outpatient as she has already missed multiple appts with me to establish. She is aware. Disposition: [facility] Hospital Course: 28 yr old female presented this am to ER in HTN Emergency. She was given Labetalol in ER x40mg, given vasotec in ER and put on a nicardipine drip. I resumed her home meds of zestoretic 20/25 (broken into components in hospital) and clonidine 0.2mg BID (one dose in hospital) and the drip was able to be d/c at noon. BP were more controlled. Labs reviewed she had mild leukocytosis, she had mild hypokalemia (corrected with NS and K+). At 5pm today I was alerted that the patient wanted to leave AMA> BP was looking much better 130- 140/80-90 than when she was in the >200/100 at admit. She wanted to smoke, patches do not work. We talked about her ?seizures, we talked about her HTN, non compliance, her need to get medical card and she had so many different excuses for how she was too busy. I told her I wanted to help her, did not feel it was good for her to leave and that she needed to stay. I discussed with father the seizure med, precautions for seizures and discussed need to take regularly to avoid seizures. She is aware of her labs, of her CT head being negative. I discussed BP this high can be fatal. Discussed that she may have a stroke, [place], or . May be left in vegetative state, may lose function of body and that this is not a safe place to be. She verbalized understanding reiterated this to myself, to boyfriend and to father/mother. Nurse Shruthi in room. Last BP that I saw was 137/90. Apparently after I placed d/c order it spiked back up above 200. Patient still wanted to leave. I have sent her rx for zestoretic and called pharmacy. Sent clonidine 0.2mg BID and called pharmacy about that one. Discussed rebound HTN and sedation. She stated she will likely not fill the SZ meds as they were too expensive. REcommended referral to neuro surg. Recommended that she stay in hospital until we can make sure BP is controlled. Recommend CMP in next few days to 1 week to reassess K+ REcommend take BP medications as discussed Recommend smoking cessation REcommend taking seizure meds REcommended to meet with neurology Recommend to find PCP locally and that we will not be able to do that for her. Day of D/C Exam: Vital Signs - 24 hr 07/19/18 07/19/18 07/19/18 04:30 08:21 10:00 Temperature 97.7 F 98 F Pulse Rate 96 H 84 80 Pulse Rate [ 79 Apical] Respiratory 20 16 18 Rate Blood Pressure 228/155 H 138/94 H O2 Sat by Pulse 96 98 Oximetry 07/19/18 07/19/18 07/19/18 11:00 12:00 13:00 Temperature 97.3 F L Pulse Rate 76 78 Pulse Rate [ Apical] Respiratory 16 16 Rate Blood Pressure 150/96 H 149/97 H 159/102 H O2 Sat by Pulse 98 Oximetry 07/19/18 07/19/18 07/19/18 14:00 15:00 16:00 Temperature 98 F Pulse Rate 80 Pulse Rate [ Apical] Respiratory 16 Rate Blood Pressure 159/102 H 140/99 H 137/90 O2 Sat by Pulse 100 Oximetry 07/19/18 17:33 Temperature 97.7 F Pulse Rate 96 H Pulse Rate [ Apical] Respiratory 20 Rate Blood Pressure 228/155 H O2 Sat by Pulse 96 Oximetry Constitutional: Appearance-No acute distress, Consistent with stated age. Edentulous Orientation- Oriented x 3, alert Gait-Normal pace, normal arm movement. Build and Nutrition-[mildly overweight] General- Patient is pleasant and cooperative with the interview and exam. Integumentary: General-No rashes, ulcers or lesions. Palpation- Normal skin moisture/turgor. Skin is warm to touch, appropriate. Capillary refill is normal bilateral Upper and lower extremity. Head/Neck: Head- normocephalic and atraumatic. Neck- without visible/palpable lumps or pulsations. Palpation- No bony tenderness about head/neck along frontal, occipital, temporal, parietal, mastoid, jawline, zygoma, orbit or any other location. NO temporal artery tenderness. No TMJ tenderness. Neck Supple. Thyroid-No thyromegaly, no nodules Eye: Pupils symmetrical and responsive to direct/indirect light. Bilaterally PERRLA, EOMI. No discharge. Upper and lower eyelids are normal. Sclera/ conjunctiva normal without discharge. Cornea is normal and clear. Lens is normal. Eyeball appears normal. No ciliary flushing, no conjunctival injection. ENMT: Nose and sinus- No sinus tenderness along frontal/maxillary region. External appearance normal and midline. Nares- bilateral quiet airflow, no discharge. Nasal mucosa- No bleeding noted and no ulcerations observed. [place], moist. Turbinates non boggy. Lips- normal color, moist without cracks/lesions Oral Cavity/Palate- hard/soft palate intact without lesions, oral mucosa pink and moist. EDENTULOUS Tongue normal midline. Oropharynx- no pharyngeal erythema , Uvula midline. No post nasal drip. No exudate. Salivary glands- Non tender to palpation CHEST/LUNG: Inspection- symmetric chest wall no pectus deformity. Normal effort , no distress, no use of accessory muscles. Palpation- nontender sternum, ribline. No abnormal pulsations. Auscultation- Breath sounds normal throughout all lung reed. Normal tracheal sounds, Normal bronchial sounds overlying sternum, Bronchovessicular sounds normal between scapulae posteriorly, Normal vessicular breath sounds heard throughout periphery. Lungs are clear today. Adventitious sounds- No wheezes, rales, rhonchi. CARDIOVASCULAR: Carotid artery- normal, no bruits or abnormal pulsations. Jugular vein- no pulsations. Palpation/Percussion- Normal PMI, no palpable thrill Auscultation- Regular rate and rhythm. No murmur noted in sitting, supine positions. Extremities- no digital clubbing, cyanosis, edema, increased warmth. ABDOMEN: Inspection- normal and no visible pulsations. Normal contour. Auscultation- Bowel sounds normal, no abdominal bruits. Palpation/Percussion- soft, non-tender, no rebound tenderness, no rigidity (guarding), no jar tenderness, no masses. Liver-no hepatomegaly, Spleen no splenomegaly, Hernias - none. Rectal not examined. Peripheral Vascular: Upper extremity Left- Normal temperature with pink nailbeds and no ulcerations. Upper extremity Right- Normal temperature with pink nailbeds and no ulcerations. Lower extremity- Normal temperature with pink nailbeds and no ulcerations. DP pulses 2+ bilaterally. Pedal hair intact. Normal capillary refill. Edema- No edema. Musculoskeletal: Generalized-No generalized swelling or edema of extremities, no digital clubbing or cyanosis, neurovascularly intact all four extremities Neurological: General- Moves all 4 extremities symmetrically. Symmetrical face and body posture. Cranial nerves- individually evaluated II-XII and intact. PERRLA, Normal EOMI, visual/special senses appear intact, Face is symmetrical and normal sensation/movement, normal tongue, normal strength/posture of neck musculature. Reflexes- intact with DTR 2+ patellar, Achilles, bicep, brachial, tricep. Ankle clonus normal with 2 beats. Strength- 5/5 bilateral UE and LE. Soft touch- intact bilateral UE and LE. Temperature sensation- intact bilateral UE and LE. Neuropsych: Oriented- Person, place, time. (AAOx3), Mood/affect- normal and congruent. Able to articulate well. GCS 15, sehe rpeated back what I had said. Speech-Normal speech, normal rate, normal tone, normal use of language, volume and coherence. Thought content- normal with ability to perform basic computations and apply abstract thought/reason. Associations- no SI/HI, no hallucinations, delusions, obsessions. Judgment/insight- Questionable Memory- Recall intact, remote and recent memory intact. Knowledge- limited but she understood what we were talking about. Normal attention. Plan: 1. Patient to leave AMA per her report. She is capable of making this decision. Family in room tried to talk to her, she calmly rationalized her issues. She wants to smoke she wants to calm down at home and does not want to be in hospital. is better. Leaving with markedly elevated BP but she is cognitively aware, UDS negative, ETOH negative. I tried to convince her to stay , nurse Shruthi tried to convince her to stay, boyfriend, father and mother in room also. She has kids. She wants to be home. I discussed dangers of stroke, dangers of BP that is this elevated. WE spent 40 minutes total face to face today working on discussing the above. 2. Despite the above, patient wants to leave AMA. - Needs to f [facility]u with [facility]. - Needs to meet with neurology - Needs to take BP meds as indicated - Needs to take seizure meds - Seizure precautions 3. Smoking Cessation. >30 minutes spent in discharge today.
== END 2018-07-19 17:42 | disposition left against medical advice (07) ==
LOC: ED 04:26 → INTOOBSV 07:21 → SCU 07:21 → UNDOADMOB 07:21 → SCU 07:21
PROVIDERS: ADMIT Family Medicine; ATTEND Family Medicine
DX: I16.0 Hypertensive urgency (principal); R56.9 Unspecified convulsions; R51 Headache; R11.2 Nausea with vomiting, unspecified; R53.1 Weakness; R63.0 Anorexia; D72.829 Elevated white blood cell count, unspecified; F17.210 Nicotine dependence, cigarettes, uncomplicated; F41.9 Anxiety disorder, unspecified; Z72.0 Tobacco use; Z87.898 Personal history of other specified conditions
CPT/HCPCS: 36415; 80053; 80306; 80307; 82150; 82550; 82553; 83605; 83690; 84145; 84703; 85025; 87502; 93005; 93010; 96360; 96361; 96365; 96375; 96376; 99236; 99284

== ENCOUNTER 2018-09-28 10:45 | Outpatient (CLI) | END 2018-09-28 11:07 | disposition short-term general hospital (02) | LOC: AMBL 10:45 | PROVIDERS: ATTEND Emergency Medicine | DX: R07.9 Chest pain, unspecified (principal); R51 Headache; M79.602 Pain in left arm; R06.89 Other abnormalities of breathing; I10 Essential (primary) hypertension; Z91.14 Patient's other noncompliance with medication regimen; R00.0 Tachycardia, unspecified ==

== ENCOUNTER 2018-10-14 15:17 | Emergency (ER) ==
[2018-10-14 15:27] VITALS: TEMP 97.9; BMI 25.7
[2018-10-14] MEDS ORDERED: ZOFRAN 4 MG/2 ML IM STA (15:28)
[2018-10-14] MEDS ORDERED: MORPHINE 4 MG/ML SYRINGE IM STA (15:28)
[2018-10-14] MEDS ORDERED: DILAUDID 0.5 MG/0.5 ML SYRINGE IVP STA (15:39)
[2018-10-14] MEDS ORDERED: ASPIRIN EC PO STA (15:45)
[2018-10-14] MEDS ORDERED: CARDENE-NACL 20 MG/200 ML SOLN 200 ML IV ONE (15:54)
[2018-10-14] MEDS ORDERED: CARDENE-NACL 20 MG/200 ML SOLN 20 MG in PREMIX 200ML 0.86% SODIUM CHLORIDE 1 BAG IV SCH (16:00)
--- NOTE | 2018-10-14 16:54 | CT ---
EXAM: CT of the head without contrast History: Headache and chest pain. Comparison: Head CT 07/19/2018 Technique: Multiplanar CT images pain without the administration of IV contrast Findings: The visualized paranasal sinuses and mastoid air cells are clear in general. No acute prateek varial abnormalities. Intracranially the ventricular and cisternal spaces are normal in size, shape and configuration for a patient of this age. No dominant mass or midline shift. No hydrocephalous. No acute intracranial hemorrhage or abnormal extraaxial fluid collections. Impression: No acute intracranial process.
[2018-10-14] MEDS ORDERED: MORPHINE 2 MG/ML SYRINGE IVP STA (17:01)
--- NOTE | 2018-10-14 17:01 | CT ---
EXAM: CT of the chest without contrast History: Chest pain. Comparison: Chest radiograph 07/19/2018, chest CT 02/07/2018 Technique: Multiplanar CT images through the thorax were obtained without the administration of IV c ontrast Findings: Heart size is normal. Ectatic ascending aorta measuring 3.7 cm in caliber. Interval deve lopment of 4.0 cm x 2.3 cm low-density mass within the anterior mediastinum. No axillary lymphadenop athy. Evaluation for hilar lymph nodes is limited due to the lack of contrast administration. No bu lky hilar adenopathy is seen. No consolidation. No pleural fluid and no pneumothorax. No lung mass es or lung nodules. Within the visualized upper abdomen, status post cholecystectomy. No acute osseous abnormalities. Impression: 1. No acute intrathoracic process. 2. Interval development of low density anterior mediastinal mass. Differential diagnosis would incl ude pericardial cyst, thymic cyst or thymoma. Recommend further evaluation with outpatient MRI of th e chest with and without contrast. 3. Ectatic ascending aorta measuring 3.7 cm in caliber.
[2018-10-14 17:32] VITALS: BP 168/114
--- NOTE | 2018-10-14 17:55 | ED.PDOC ---
General ED Provider: Dr. MAYANK BENNETT Chief Complaint: Chest Pain Stated Complaint: CHEST PAIN , HEADACHE HIGH B/P Time Seen by Physician: 15:22 Mode of Arrival: Walk-In Information Source: Patient Exam Limitations: No limitations Nursing and Triage Documentation Reviewed and Agree: Yes Does patient meet sepsis criteria?: No System Inflammatory Response Syndrome: Not Applicable Sepsis Protocol: For patient's 13 years and over: Temp is 96.8 and below OR 101 and greater Pulse >90 BPM Resp >20/minute Acutely Altered Mental Status Are patient's symptoms suggestive of a new infection, such as: -Pneumonia -Skin, Soft Tissue -Endocarditis -UTI -Bone, Joint Infection -Implantable Device -Acute Abdominal Infection -Wound Infection -Meningitis -Blood Stream Catheter Infection -Unknown Cardiovascular Complaint Exam - Hypertension Complaint/Exam Onset/Duration: today shorthly prior to arrival had head ache and chest pain Symptoms Are: Still present Timing: Constant Reported B/P Prior to Arrival: 171/147 Aggravating: Reports: None Alleviating: Reports: None Associated Signs and Symptoms: Reports: Chest pain (headache later increased to 204/148) Related History: Reports: Current Erik Inhibitors Related Surgical History: Reports: None Cardiac Risk Factors: Reports: None Recent Change in Medications: No A/V Nicking: No Papilledema Present: No JVD Present: No Carotid Bruit Present: No Femoral Pulses Bounding: No Differential Diagnoses: Cerebral Bleed, Hypertension, Hypertensive Crisis, Hypertensive Urgency, Migraine, Renal Disease Quality Indicator For Non-Traumatic Chest Pain/Syncope: EKG Performed Review of Systems - Review Of Systems Constitutional: Reports: No symptoms Eyes: Reports: No symptoms Ears, Nose, Mouth, Throat: Reports: No symptoms Respiratory: Reports: No symptoms Cardiac: Reports: Chest pain GI: Reports: No symptoms : Reports: No symptoms Musculoskeletal: Reports: No symptoms Skin: Reports: No symptoms Neurological: Reports: No symptoms Endocrine: Reports: No symptoms Hematologic/Lymphatic: Reports: No symptoms All Other Systems: Reviewed and Negative Past Medical History - Past Medical History Previously Healthy: No (HTN, Meth abuse, CHF) Endocrine: Reports: None Cardiovascular: Reports: Hypertension, CHF Respiratory: Reports: None Hematological: Reports: None Gastrointestinal: Reports: Other (HEP C POSTIVE ) Genitourinary: Reports: None Neuro/Psych: Reports: Seizure, Depression, PTSD, Other (poisoning with rat poison in past ) Musculoskeletal: Reports: None Cancer: Reports: None Last Menstrual Period: 09/13/2018 - Surgical History General Surgical History: Reports: None - Family History Family History: Reports: Hypertension - Social History Smoking Status: Current every day smoker Hx Substance Use: No Alcohol Screening: None - Immunizations Tetanus Shot up to Date: Yes Physical Exam - Physical Exam Appearance: Well-appearing, No pain distress, Well-nourished Eyes: BRAULIO, EOMI, Conjunctiva clear ENT: Ears normal, Nose normal, Oropharynx normal Respiratory: Airway patent, Breath sounds clear, Breath sounds equal, Respirations nonlabored Cardiovascular: RRR, Pulses normal, No rub, No murmur GI/: Soft, Nontender, No masses, Bowel sounds normal, No Organomegaly Musculoskeletal: Normal strength, ROM intact, No edema, No calf tenderness Skin: Warm, Dry, Normal color Neurological: Sensation intact, Motor intact, Reflexes intact, Cranial nerves intact, Alert, Oriented Psychiatric: Affect appropriate, Mood appropriate Interpretation - Radiology Interpretation Radiology Interpretation By: Radiologist Radiology Results: Positive (anterior medistinal mass) Re-Evaluation - Re-Evaluation Time of Re-Evaluation: 16:00 Status: Improved Vital Signs Stable: Yes Pain Level: 3/10 Appearance: NAD Lungs: Clear Skin: Warm and Dry Neuro: Alert and Oriented X3 CV: RRR - Re-Evaluation Time of Re-Evaluation: 17:50 (REFUSED ADMISSION RISKS DISCUSSED PRESENT JAVON TOVAR MARCI ) Status: Improved Vital Signs Stable: Yes Pain Level: 0 Appearance: NAD Skin: Warm and Dry Neuro: Alert and Oriented X3 CV: RRR Additional Comments: PT STATED SHE WANT'S TO GO HOME AND EAT. WOULD NOT CONSIDER ANYTHING ELSE Critical Care Note - Critical Care Note Total Time (mins): 120 Course - Course Hematology/Chemistry: 10/14/18 15:55 10/14/18 15:55 Orders, Labs, Meds: Lab Review 10/14/18 10/14/18 10/14/18 15:55 15:55 15:55 WBC 8.63 RBC 6.32 H Hgb 14.8 Hct 47.0 MCV 74.4 L MCH 23.4 L MCHC 31.5 L RDW Coeff of Anastasia 17.1 H Plt Count 513 H Immature Gran % (Auto) 0.2 Neut % (Auto) 76.7 Lymph % (Auto) 18.3 [place] % (Auto) 4.4 Eos % (Auto) 0.1 Baso % (Auto) 0.3 Immature Gran # (Auto) 0.0 Neut # (Auto) 6.6 Lymph # (Auto) 1.6 [place] # (Auto) 0.4 Eos # (Auto) 0.0 Baso # (Auto) 0.0 Sodium 136.1 Potassium 3.93 Chloride 99.7 Carbon Dioxide 20.4 L Anion Gap 19.93 BUN 16.1 Creatinine 1.07 Estimated GFR (MDRD) 60.00 BUN/Creatinine Ratio 15.04 Glucose 93.8 Calcium 11.12 H Total Bilirubin 0.81 AST 42.0 H ALT 22.7 Alkaline Phosphatase 125.3 Total Creatine Kinase 62.0 Troponin I < 0.012 Total Protein 10.02 H Albumin 5.56 H Globulin 4.46 Albumin/Globulin Ratio 1.24 Serum , Qual Negative Urine Opiates Screen Ur Oxycodone Screen Urine Methadone Screen Ur Propoxyphene Screen Ur Barbiturates Screen U Tricyclic Antidepress Ur Phencyclidine Scrn Ur Amphetamine Screen U Methamphetamines Scrn U Benzodiazepines Scrn Urine Cocaine Screen U Cannabinoids Screen 10/14/18 16:34 WBC RBC Hgb Hct MCV MCH MCHC RDW Coeff of Anastasia Plt Count Immature Gran % (Auto) Neut % (Auto) Lymph % (Auto) [place] % (Auto) Eos % (Auto) Baso % (Auto) Immature Gran # (Auto) Neut # (Auto) Lymph # (Auto) [place] # (Auto) Eos # (Auto) Baso # (Auto) Sodium Potassium Chloride Carbon Dioxide Anion Gap BUN Creatinine Estimated GFR (MDRD) BUN/Creatinine Ratio Glucose Calcium Total Bilirubin AST ALT Alkaline Phosphatase Total Creatine Kinase Troponin I Total Protein Albumin Globulin Albumin/Globulin Ratio Serum , Qual Urine Opiates Screen Positive Ur Oxycodone Screen Positive Urine Methadone Screen Negative Ur Propoxyphene Screen Negative Ur Barbiturates Screen Negative U Tricyclic Antidepress Negative Ur Phencyclidine Scrn Negative Ur Amphetamine Screen Negative U Methamphetamines Scrn Negative U Benzodiazepines Scrn Negative Urine Cocaine Screen Negative U Cannabinoids Screen Negative Orders Category Date Time Status EKG-(ED ONLY) Stat CARDIO 10/14/18 15:28 Completed CBC W/ AUTO DIFF Stat LAB 10/14/18 15:55 Completed COMPREHENSIVE METABOLIC PANEL Stat LAB 10/14/18 15:55 Completed CREATINE KINASE Stat LAB 10/14/18 15:55 Completed SERUM Stat LAB 10/14/18 15:55 Completed TROPONIN I Stat LAB 10/14/18 15:55 Completed URINE DRUG SCREEN (RAPID FOR ED) [DRUG SCREEN, URINE, LAB 10/14/18 16:34 Completed RAPID] Stat 0.9 % Sodium Chloride [Premix 200Ml 0.86% Sodium MEDS 10/14/18 16:00 Active Chloride] 1 bag Nicardipine in NaCl, Iso-Osm [Cardene-NaCl 20 mg/200 ml Soln] 20 mg IV 5 mg/hr Aspirin [Aspirin EC] MEDS 10/14/18 15:45 Discontinued 325 mg PO ONCE STA Hydromorphone HCl [Dilaudid 0.5 mg/0.5 ml Syringe] MEDS 10/14/18 15:39 Discontinued 0.5 mg IVP ONCE STA Morphine Sulfate [Morphine 2 mg/ml Syringe] MEDS 10/14/18 17:01 Discontinued 2 mg IVP ONCE STA Morphine Sulfate [Morphine 4 mg/ml Syringe] MEDS 10/14/18 15:28 Discontinued 4 mg IM ONCE STA Nicardipine in NaCl, Iso-Osm [Cardene-NaCl 20 mg/200 ml MEDS 10/14/18 15:54 Discontinued Soln] 200 ml IV .STK-MED Ondansetron HCl/Pf [Zofran 4 mg/2 ml] MEDS 10/14/18 15:28 Discontinued 4 mg IM ONCE STA CT CHEST W/O CONTRAST Stat RADS 10/14/18 16:[address] HEAD W/O CONTRAST Stat RADS 10/14/18 16:11 Completed Medications Generic Name Dose Route Start Last Admin Trade Name Freq PRN Reason Stop Dose Admin Nicardipine/Sodium Chloride 20 200 mls @ 50 mls/hr 10/14/18 16:00 10/14/18 16 :04 mg/ Sodium Chloride IV 5 mg/hr .Q4H ARMOND 50 mls/hr Administration Protocol 5 MG/HR Discontinued Medications Generic Name Dose Route Start Last Admin Trade Name Freq PRN Reason Stop Dose Admin Aspirin 325 mg 10/14/18 15:45 10/14/18 15:52 Aspirin Ec PO 10/14/18 15:46 325 mg ONCE STA Administration Hydromorphone HCl 0.5 mg 10/14/18 15:39 10/14/18 15:44 Dilaudid 0.5 Mg/0.5 Ml Syringe IVP 10/14/18 15:40 0.5 mg ONCE STA Administration Morphine Sulfate 4 mg 10/14/18 15:28 10/14/18 15:31 Morphine 4 Mg/Ml Syringe IM 10/14/18 15:29 4 mg ONCE STA Administration Morphine Sulfate 2 mg 10/14/18 17:01 10/14/18 17:09 Morphine 2 Mg/Ml Syringe IVP 10/14/18 17:02 2 mg ONCE STA Administration Ondansetron HCl 4 mg 10/14/18 15:28 10/14/18 15:32 Zofran 4 Mg/2 Ml IM 10/14/18 15:29 4 mg ONCE STA Administration Vital Signs: Temp Pulse Resp BP Pulse Ox 10/14/18 17:31 95 H 168/114 H 10/14/18 15:22 97.9 F 88 22 171/46 H 98 TORI Risk Score TORI Risk Score: Risk Score Odds of by 30D 0 0.1 (0.1-0.2) 1 0.3 (0.2-0.3) 2 0.4 (0.3-0.5) 3 0.7 (0.6-0.9) 4 1.2 (1.0-1.5) 5 2.2 (1.9-2.6) 6 3.0 (2.5-3.6) 7 4.8 (3.8-6.1) Departure - Departure Time of Disposition: 17:57 (discussed transfer to a higher level of care based on hypertensive urgency and headache. pt more interested in food refused to be transfered , medistinal mass discussed . prior to leaving AMA HER BLOOD PRESSURE WAS NOTED TO BE 176/116. PT REFUSED FURTHER CARE I COULD NOT PERSUDE HER TO STAY SHE WAS TOLD THAT HER BLOOD PRESSURE IS NOT CONTORLED BY LEAVING AMA SHE CAN SUSTAIN A HEART ATTACK, STROKE, ) Disposition: AMA Discharge Problem: Chest pain, Hypertensive urgency Chest pain Qualifiers: Chest pain type: unspecified Qualified Code(s): R07.9 - Chest pain, unspecified Headache Qualifiers: Headache type: unspecified Headache chronicity pattern: acute headache Condition: Good Pt referred to PMD for follow-up: Yes IPMP verified?: No Additional Instructions: Please call your Family Physician as soon as possible to schedule a follow-up appointment. Allergies/Adverse Reactions: Allergies divalproex sodium [From Depakote] Adverse Reaction (Verified 06/13/18 17:17) tramadol [From Ultram] Adverse Reaction (Verified 06/13/18 17:17) vancomycin Adverse Reaction (Verified 06/13/18 17:17) Home Medications: Ambulatory Orders Clonidine HCl 0.2 mg PO BID 30 Days #60 tablet 07/19/18 Lisinopril/Hydrochlorothiazide [Zestoretic 20-25 mg Tablet] 1 each PO DAILY 30 Days #30 tablet 07/19/18 Disposition Discussed With: Patient
== END 2018-10-14 17:52 | disposition left against medical advice (07) ==
LOC: ED 15:17
DX: R07.9 Chest pain, unspecified (principal); R51 Headache; I16.0 Hypertensive urgency; Z72.0 Tobacco use
CPT/HCPCS: 36415; 80053; 80306; 82550; 84484; 84703; 85025; 93005; 93010; 96365; 96366; 96372; 96375; 99284

== ENCOUNTER 2018-10-15 08:24 | Emergency (ER) ==
[2018-10-15 08:24] VITALS: BMI 25.7
[2018-10-15 08:37] VITALS: BP 199/155; TEMP 97.7
[2018-10-15] MEDS ORDERED: CARDENE-NACL 20 MG/200 ML SOLN 20 MG in PREMIX 200ML 0.86% SODIUM CHLORIDE 1 BAG IV SCH (09:00)
[2018-10-15] MEDS ORDERED: CARDENE-NACL 20 MG/200 ML SOLN 200 ML IV ONE (09:17)
--- NOTE | 2018-10-15 09:35 | DI ---
EXAM: Single view of the chest. History: Chest pain. Comparison: Chest radiograph 07/19/2018, chest CT 10/14/2018 Findings: Heart size is normal. No focal consolidation. No appreciable pleural fluid and no pneumo thorax. No acute osseous abnormalities. Stable prominent contour of the ascending aorta. Impression: No acute cardiopulmonary process
--- NOTE | 2018-10-15 10:07 | ED.PDOC ---
General ED Provider: Dr. MAYANK BENNETT Chief Complaint: Chest Pain Stated Complaint: chest pain Time Seen by Physician: 08:33 (seen with her nurse at all times ) Mode of Arrival: Wheelchair Information Source: Patient Exam Limitations: No limitations Primary Care Provider: MAGUI DEWEY Nursing and Triage Documentation Reviewed and Agree: Yes Does patient meet sepsis criteria?: No System Inflammatory Response Syndrome: Not Applicable Sepsis Protocol: For patient's 13 years and over: Temp is 96.8 and below OR 101 and greater Pulse >90 BPM Resp >20/minute Acutely Altered Mental Status Are patient's symptoms suggestive of a new infection, such as: -Pneumonia -Skin, Soft Tissue -Endocarditis -UTI -Bone, Joint Infection -Implantable Device -Acute Abdominal Infection -Wound Infection -Meningitis -Blood Stream Catheter Infection -Unknown Cardiovascular Complaint Exam - Chest Pain Complaint/Exam Onset: Gradual Duration: 1 day was seen in the emergency room yesterday with hypertensive emergency Symptoms Are: Still present (24 hrs ago leftAMAM) Length of Chest Pain Episodes: 2 HRS Initial Severity: Mild Current Severity: Mild Location: Reports: Right anterior Pain Radiates: Reports: None Character: Reports: Tightness Aggravating: Reports: None Alleviating: Reports: None Associated Signs and Symptoms: Denies: Diaphoresis, Nausea, Vomiting, Fever, Palpitations, Cough, Hemoptysis, Back pain, Abdominal pain, Dizziness, Short of air, Calf pain, Calf swelling Related History: Reports: Similar episode Related Surgical History: Reports: None History of Healthcare-Acquired Pneumonia: Reports: No AMI/ACS Risk Factors: Reports: Hypertension TAD Risk Factors: Reports: CHF Pulmonary Embolism Risk Factors: Reports: Smoking Recent Stress Test: No Recent Echo/LV Function: No JVD Present: No Subcutaneous Emphysema Present: No Diminshed Breath Sounds: No Reproducible Chest Wall Pain: No Bilateral Pulses Present: Yes Unequal Pulses Noted: No If Risk Factors for AMI/ACS Consider: EKG, Cardiac Enzymes Differential Diagnoses: ACS, Unstable Angina, Other (HYPERTENSIVE EMERGENCY) Quality Indicators For Acute [place] or Cardiac Chest Pain: EKG in 10min. Review of Systems - Review Of Systems Constitutional: Reports: No symptoms Eyes: Reports: No symptoms Ears, Nose, Mouth, Throat: Reports: No symptoms Respiratory: Reports: No symptoms Cardiac: Reports: Chest pain GI: Reports: No symptoms : Reports: No symptoms Musculoskeletal: Reports: No symptoms Skin: Reports: No symptoms Neurological: Reports: No symptoms Endocrine: Reports: No symptoms Hematologic/Lymphatic: Reports: No symptoms All Other Systems: Reviewed and Negative Past Medical History - Past Medical History Previously Healthy: No (HTN, Meth abuse, CHF) Endocrine: Reports: None Cardiovascular: Reports: Hypertension, CHF Respiratory: Reports: None Hematological: Reports: None Gastrointestinal: Reports: Other (HEP C POSTIVE ) Genitourinary: Reports: None Neuro/Psych: Reports: Seizure, Depression, PTSD, Other (poisoning with rat poison in past ) Musculoskeletal: Reports: None Cancer: Reports: None Last Menstrual Period: 10/14 - Surgical History General Surgical History: Reports: None - Family History Family History: Reports: Hypertension - Social History Smoking Status: Current every day smoker, Light tobacco smoker Hx Substance Use: No (in past) Alcohol Screening: None Physical Exam - Physical Exam Appearance: Well-appearing, No pain distress, Well-nourished Eyes: BRAULIO, EOMI, Conjunctiva clear ENT: Ears normal, Nose normal, Oropharynx normal Respiratory: Airway patent, Breath sounds clear, Breath sounds equal, Respirations nonlabored Cardiovascular: RRR, Pulses normal, No rub, No murmur GI/: Soft, Nontender, No masses, Bowel sounds normal, No Organomegaly Musculoskeletal: Normal strength, ROM intact, No edema, No calf tenderness Skin: Warm, Dry, Normal color Neurological: Sensation intact, Motor intact, Reflexes intact, Cranial nerves intact, Alert, Oriented Psychiatric: Affect appropriate, Mood appropriate Interpretation - Commercial Administrator Rate: Normal Rhythm: Sinus Ectopy: None - EKG Interpretation Rate: Normal Rhythm: Sinus (PROLONGED qt 513 which can secondry to ischemia) Ectopy: None ([facility] ) [place]: NL (QT-U PATTERN ) Re-Evaluation - Re-Evaluation Time of Re-Evaluation: 09:00 Status: Improved Vital Signs Stable: Yes Pain Level: 0 Appearance: NAD Lungs: Clear Skin: Warm and Dry Neuro: Alert and Oriented X3 CV: RRR - Re-Evaluation Time of Re-Evaluation: 10:18 (lisa sheikh MD WILL TRANSFER ) Pain Level: 1 Appearance: NAD Skin: Warm and Dry Neuro: Alert and Oriented X3 CV: RRR Physician Notification - Case Discussed Physician Notified: NOTIFIED [facility] Time of Notification: 10:10 Physician Notified: MARKOS caldwell Time of Notification: 10:17 (transfer now) Critical Care Note - Critical Care Note Total Time (mins): 90 Course - Course Hematology/Chemistry: 10/15/18 09:30 10/15/18 09:30 Orders, Labs, Meds: Lab Review 10/15/18 10/15/18 10/15/18 09:07 09:30 09:30 WBC 8.45 RBC 5.47 H Hgb 12.7 Hct 40.3 D MCV 73.7 L MCH 23.2 L MCHC 31.5 L RDW Coeff of Anastasia 16.0 H Plt Count 399 Immature Gran % (Auto) 0.1 Neut % (Auto) 70.6 Lymph % (Auto) 23.6 [place] % (Auto) 4.9 Eos % (Auto) 0.4 Baso % (Auto) 0.4 Immature Gran # (Auto) 0.0 Neut # (Auto) 6.0 Lymph # (Auto) 2.0 [place] # (Auto) 0.4 Eos # (Auto) 0.0 Baso # (Auto) 0.0 PT INR APTT Sodium 137.2 Potassium 3.81 Chloride 108.8 H Carbon Dioxide 17.5 L Anion Gap 14.71 BUN 17.9 H Creatinine 0.92 Estimated GFR (MDRD) 72.00 BUN/Creatinine Ratio 19.45 Glucose 95.4 Calcium 9.98 Total Bilirubin 0.35 AST 35.7 ALT 18.4 Alkaline Phosphatase 88.4 D Total Creatine Kinase 120.9 CK-MB (CK-2) Pending CK-MB (CK-2) % Pending Troponin I < 0.012 Total Protein 7.95 Albumin 4.78 Globulin 3.17 Albumin/Globulin Ratio 1.50 Urine Opiates Screen Positive Ur Oxycodone Screen Negative Urine Methadone Screen Negative Ur Propoxyphene Screen Negative Ur Barbiturates Screen Negative U Tricyclic Antidepress Negative Ur Phencyclidine Scrn Negative Ur Amphetamine Screen Negative U Methamphetamines Scrn Negative U Benzodiazepines Scrn Negative Urine Cocaine Screen Negative U Cannabinoids Screen Negative 10/15/18 09:30 WBC RBC Hgb Hct MCV MCH MCHC RDW Coeff of Anastasia Plt Count Immature Gran % (Auto) Neut % (Auto) Lymph % (Auto) [place] % (Auto) Eos % (Auto) Baso % (Auto) Immature Gran # (Auto) Neut # (Auto) Lymph # (Auto) [place] # (Auto) Eos # (Auto) Baso # (Auto) PT 10.0 INR 1.00 APTT 27.0 Sodium Potassium Chloride Carbon Dioxide Anion Gap BUN Creatinine Estimated GFR (MDRD) BUN/Creatinine Ratio Glucose Calcium Total Bilirubin AST ALT Alkaline Phosphatase Total Creatine Kinase CK-MB (CK-2) CK-MB (CK-2) % Troponin I Total Protein Albumin Globulin Albumin/Globulin Ratio Urine Opiates Screen Ur Oxycodone Screen Urine Methadone Screen Ur Propoxyphene Screen Ur Barbiturates Screen U Tricyclic Antidepress Ur Phencyclidine Scrn Ur Amphetamine Screen U Methamphetamines Scrn U Benzodiazepines Scrn Urine Cocaine Screen U Cannabinoids Screen Orders Category Date Time Status EKG-(ED ONLY) Stat CARDIO 10/15/18 08:53 Ordered CBC W/ AUTO DIFF Stat LAB 10/15/18 08:53 Ordered COMPREHENSIVE METABOLIC PANEL Stat LAB 10/15/18 08:53 Ordered CREATINE KINASE Stat LAB 10/15/18 08:53 Ordered D-DIMER Stat LAB 10/15/18 Ordered PARTIAL THROMBOPLASTIN TIME Stat LAB 10/15/18 08:53 Ordered PT WITH INR Stat LAB 10/15/18 08:53 Ordered TROPONIN I Stat LAB 10/15/18 08:53 Ordered URINE DRUG SCREEN (RAPID FOR ED) [DRUG SCREEN, URINE, LAB 10/15/18 08:57 Uncollected RAPID] Stat [id number] MG in 0.86% SODIUM CHLORIDE @ 5 MG/HR( MEDS 10/15/18 09:00 Ordered 200ml) 0.9 % Sodium Chloride [Premix 200Ml 0.86% Sodium Chloride] 1 bag Nicardipine in NaCl, Iso-Osm [Cardene-NaCl 20 mg/200 ml Soln] 20 mg IV 5 mg/hr Nicardipine in NaCl, Iso-Osm [Cardene-NaCl 20 mg/200 ml MEDS 10/15/18 09:17 Discontinued Soln] 200 ml IV .STK-MED CHEST, 1V AP ONLY Stat RADS 10/15/18 08:57 Ordered Medications Generic Name Dose Route Start Last Admin Trade Name Freq PRN Reason Stop Dose Admin Nicardipine/Sodium Chloride 20 200 mls @ 50 mls/hr 10/15/18 09:00 10/15/18 09 :58 mg/ Sodium Chloride IV 5 mg/hr .Q4H ARMOND 50 mls/hr Administration Protocol 5 MG/HR Vital Signs: Temp Pulse Resp BP Pulse Ox 10/15/18 08:29 97.7 F 74 24 199/155 H 97 TORI Risk Score TORI Risk Score: Risk Score Odds of by 30D 0 0.1 (0.1-0.2) 1 0.3 (0.2-0.3) 2 0.4 (0.3-0.5) 3 0.7 (0.6-0.9) 4 1.2 (1.0-1.5) 5 2.2 (1.9-2.6) 6 3.0 (2.5-3.6) 7 4.8 (3.8-6.1) Departure - Departure Time of Disposition: 10:18 Disposition: TSF SHORT-TRM HOSP Discharge Problem: Hypertensive urgency, Chest pain Instructions: Hypertension (ED) Condition: Good Pt referred to PMD for follow-up: Yes IPMP verified?: No Allergies/Adverse Reactions: Allergies divalproex sodium [From Depakote] Adverse Reaction (Verified 06/13/18 17:17) tramadol [From Ultram] Adverse Reaction (Verified 06/13/18 17:17) vancomycin Adverse Reaction (Verified 06/13/18 17:17) Home Medications: Ambulatory Orders Clonidine HCl 0.2 mg PO BID 30 Days #60 tablet 07/19/18 Lisinopril/Hydrochlorothiazide [Zestoretic 20-25 mg Tablet] 1 each PO DAILY 30 Days #30 tablet 07/19/18
[2018-10-15] MEDS ORDERED: ASPIRIN CHEWABLE PO STA (10:12)
[2018-10-15] MEDS ORDERED: NITROSTAT SL STA (10:13)
[2018-10-15] MEDS ORDERED: ASPIRIN CHEWABLE ONE (10:15)
[2018-10-15] MEDS ORDERED: TYLENOL PO STA ×2 (10:21→10:28)
== END 2018-10-15 11:20 | disposition short-term general hospital (02) ==
LOC: ED 08:24
DX: R07.9 Chest pain, unspecified (principal); I16.0 Hypertensive urgency; F17.210 Nicotine dependence, cigarettes, uncomplicated
CPT/HCPCS: 36415; 80053; 80306; 82550; 82553; 84484; 85025; 85379; 85610; 85730; 93005; 93010; 96365; 99285

== ENCOUNTER 2018-10-15 11:26 | Outpatient (CLI) ==
[2018-10-15 08:24] VITALS: BMI 25.7
== END 2018-10-15 11:48 | disposition short-term general hospital (02) ==
LOC: AMBL 11:26
PROVIDERS: ATTEND Internal Medicine
DX: R07.9 Chest pain, unspecified (principal); I16.0 Hypertensive urgency; R25.2 Cramp and spasm; R53.1 Weakness

== ENCOUNTER 2019-02-13 11:52 | Outpatient (CLI) | END 2019-02-13 12:09 | disposition short-term general hospital (02) | LOC: AMBL 11:52 | PROVIDERS: ATTEND Emergency Medicine | DX: R11.2 Nausea with vomiting, unspecified (principal); R41.0 Disorientation, unspecified; I10 Essential (primary) hypertension; R51 Headache; Z91.14 Patient's other noncompliance with medication regimen ==

== ENCOUNTER 2020-08-21 13:03 | Observation (INO) ==
[2020-08-21] MEDS ORDERED: CATAPRES PO STA (13:28)
[2020-08-21] MEDS ORDERED: TRANDATE IVP STA (13:31)
[2020-08-21 14:12] LABS: BASOPHILS % (AUTO) 0.5 % (0.0-3.0); EOSINOPHILS % (AUTO) 0.2 % (0.0-7.0); HEMATOCRIT 40.5 % (37.0-47.0); HEMOGLOBIN 12.1 g/dl (12.0-16.0); IMMATURE GRANULOCYTE % (AUTO) 0.5 % (0.0-5.0); LYMPHOCYTES % (AUTO) 11.2 (10.0-50.0); MEAN CORPUSCULAR HEMOGLOBIN 22.1 pg (27.0-31.0); MEAN CORPUSCULAR HGB CONC 29.9 (31.8-35.4); MEAN CORPUSCULAR VOLUME 73.9 fl (81.0-99.0); MONOCYTES # (AUTO) 0.5 K/uL (0.4-2.0); MONOCYTES % (AUTO) 5.4 (0-10); NEUTROPHILS # (AUTO) 7.2 K/ul (2.0-6.9); NEUTROPHILS % (AUTO) 82.2 % (42.2-75.2); PLATELET COUNT 230 10^3/uL (140-440); RDW COEFFICIENT OF VARIATION 18.6 % (11.6-14.8); RED BLOOD COUNT 5.48 10^6/ul (4.20-5.40); WHITE BLOOD COUNT 8.81 K/ul (4.6-10.2)
[2020-08-21 14:23] LABS: ALANINE AMINOTRANSFERASE 38.4 U/L (0-35); ALBUMIN 3.56 g/dL (3.5-5.0); ALKALINE PHOSPHATASE 102.5 U/L (38-126); ASPARTATE AMINO TRANSFERASE 54.4 U/L (14-36); BILIRUBIN,TOTAL 0.73 mg/dL (0.2-1.3); CALCIUM 9.16 mg/dL (8.4-10.2); CARBON DIOXIDE 29.3 mmol/L (22-30.0); CHLORIDE 97.5 mmol/L (98-107); CREATININE 0.92 mg/dL (0.60-1.30); GLUCOSE 130.3 mg/dL (74-106); POTASSIUM 3.42 mmol/L (3.5-5.1); SODIUM 132.9 mmol/L (134.5-145); TOTAL PROTEIN 7.11 g/dL (6.3-8.2)
--- NOTE | 2020-08-21 14:26 | DI ---
EXAM: Single portable AP view of the chest 08/21/2020 HISTORY: Hypertensive urgency. COMPARISON: 07/07/2020. FINDINGS: The lungs are clear. The trachea is midline. The cardiomediastinal silhouette is enlarged. The osseous structures are intact. IMPRESSIONS: No focal consolidation, large pleural effusion, or discernible pneumothorax. Cardiomegaly.
[2020-08-21 14:35] LABS: TROPONIN I 0.084 ng/ml (0.0000-0.120)
[2020-08-21 14:37] LABS: BILIRUBIN,URINE Negative (NEGATIVE); CLARITY,URINE Clear (CLEAR); COLOR,URINE Yellow (YELLOW); GLUCOSE, URINE (UA) Negative (NEGATIVE); KETONES,URINE Negative (NEGATIVE); LEUKOCYTE ESTERASE ,URINE 1+ (NEGATIVE); NITRITE,URINE Negative (NEGATIVE); PH,URINE 7.5 (5-9); PROTEIN,URINE 3+ (NEGATIVE); URINE, BLOOD Negative (NEGATIVE)
[2020-08-21 14:43] LABS: URINE RBC, MICROSCOPIC 0-2 (0-2)
[2020-08-21 14:44] LABS: MUCUS,URINE 1+ (NOT PRESENT)
[2020-08-21 14:46] LABS: AMPHETAMINE SCREEN,URINE POSITIVE (NEGATIVE); BARBITURATE SCREEN,URINE NEGATIVE (NEGATIVE); BENZODIAZEPINES SCREEN,URINE NEGATIVE (NEGATIVE); CANNABINOID SCREEN,URINE POSITIVE (NEGATIVE); COCAIN SCREEN,URINE NEGATIVE (NEGATIVE); METHADONE URINE SCREEN NEGATIVE (NEGATIVE); METHAMPHETAMINES SCREEN,URINE POSITIVE (NEGATIVE); OPIATE SCREEN,URINE NEGATIVE (NEGATIVE); OXYCODONE URINE SCREEN NEGATIVE (NEGATIVE); PHENCYCLIDINE SCREEN,URINE NEGATIVE (NEGATIVE); PROPOXYPHENE URINE SCREEN NEGATIVE (NEGATIVE); TRICYCLIC ANTIDEPRESSANTS URIN NEGATIVE (NEGATIVE)
--- NOTE | 2020-08-21 14:57 | ED.PDOC ---
General ED Provider: Dr. SAUL PAVON Chief Complaint: Shortness of Air Stated Complaint: Shortness of breath. States previously diagnosed with COVID. Hospitalized at [facility](left AMA) then went to [facility]-readmitted. States when discharged was only given partial prescriptions for her meds and does not have a PCP to follow up with. Has not taken her maintenance meds for hypertension for over 2 weeks. Time Seen by Provider: 08/21/20 13:45 Mode of Arrival: Walk-In Information Source: Patient Exam Limitations: Clinical condition Nursing and Triage Documentation Reviewed and Agree: Yes Does patient meet sepsis criteria?: No System Inflammatory Response Syndrome: Not Applicable Sepsis Protocol: For patient's 13 years and over: Temp is 96.8 and below OR 101 and greater Pulse >90 BPM Resp >20/minute Acutely Altered Mental Status Are patient's symptoms suggestive of a new infection, such as: -Pneumonia -Skin, Soft Tissue -Endocarditis -UTI -Bone, Joint Infection -Implantable Device -Acute Abdominal Infection -Wound Infection -Meningitis -Blood Stream Catheter Infection -Unknown Cardiovascular Complaint Exam Hypertension Complaint/Exam Onset/Duration: 2 wks Symptoms Are: Still present Timing: Constant Reported B/P Prior to Arrival: Unknown Aggravating: Reports Exertion Alleviating: Reports None Associated Signs and Symptoms: Reports Anxiety, Headache, Numbness, Tingling, Weakness and Dizziness Related History: Reports Similar episode Cardiac Risk Factors: Reports Hypertension and Smoking Recent Change in Medications: Yes A/V [place]: No Papilledema Present: No JVD Present: No Carotid Bruit Present: No Femoral Pulses Bounding: No Differential Diagnoses: Hypertensive Crisis, Hypertensive Urgency and Renal Disease Review of Systems Review Of Systems Constitutional: Reports No symptoms Eyes: Reports No symptoms Ears, Nose, Mouth, Throat: Reports No symptoms Respiratory: Reports No symptoms Cardiac: Reports No symptoms GI: Reports No symptoms : Reports No symptoms Musculoskeletal: Reports No symptoms Skin: Reports No symptoms Neurological: Reports No symptoms Endocrine: Reports No symptoms Hematologic/Lymphatic: Reports No symptoms All Other Systems: Reviewed and Negative [facility] Medical History Chest pain Chronic hepatitis C Hypertension Medical non-compliance Nausea Other specified events, undetermined intent, initial encounter Family History Mother No problems noted. Other Hypotension Social History (Updated 08/21/20 @ 20:11 by LEAH MARIN) Smoking and tobacco status: Current every day smoker Tobacco type: cigarettes Tobacco: How many years used: 20 Quit status: not considering quitting Alcohol intake: never History of recent travel: No Surgical History History of section Status post cholecystectomy Female Reproductive History Menstrual Hx Hysterectomy: No Hx Tubal Ligation: No Physical Exam Physical Exam Appearance: Reports Ill-appearing and Thin Ill-appearing: Moderate Pain Distress: Mild Eyes: Reports BRAULIO, EOMI and Conjunctiva clear ENT: Reports Ears normal, Nose normal, Oropharynx normal and Rhinorrhea Neck: Supple Respiratory: Reports Airway patent, Breath sounds clear, Breath sounds equal, Breath sounds diminished and Respirations nonlabored Cardiovascular: Reports RRR, Pulses normal, No rub, No murmur and Tachycardia GI/: Reports Soft, Nontender, No masses, Bowel sounds normal and No Organomegaly Musculoskeletal: Reports Normal strength, ROM intact, No edema and No calf tenderness Skin: Reports Warm, Dry, Normal color and Pale Neurological: Reports Sensation intact, Motor intact, Reflexes intact, Cranial nerves intact, Alert and Oriented Psychiatric: Reports Affect appropriate and Anxious Interpretation Radiology Interpretation Exam Interpreted: Portable CXR Xray Comments: No focal consolidation, large pleural effusion, or discernible pneumothorax EKG Interpretation Time of EKG #1: 14:06 Rate: Tachy Rhythm: Sinus Ectopy: None [place]: Left Interpretation: LVH Re-Evaluation Re-Evaluation Time of Re-Evaluation: 19:00 Status: Improved Vital Signs Stable: Yes (improved) Appearance: NAD Lungs: Clear Skin: Warm and Dry Neuro: Alert and Oriented X3 CV: RRR Critical Care Note Critical Care Note Total Critical Care Time (mins): 60 Comments: Total critical care time: Approximately 60 minutes Due to a high probability of clinically significant, life threatening d eterioration, the patient required my highest level of preparedness to intervene emergently and I personally spent this critical care time directly and personally managing the patient. This critical care time included obtaining a history; examining the patient; pulse oximetry;Monitoring vital signs, trending BP readings along with ordering and reviewing diagnostic studies; arranged for urgent treatment with development of a management plan; evaluation of patient's response to treatment; frequent reassessment; This critical care time was performed to assess and manage the high probability of imminent, life-threatening deterioration that could result in multi-organ failure. It was exclusive of separately billable procedures and treating other patients and teaching time. Please see EHR and the rest of the note for further information on patient assessment and treatment. Course Course Hematology/Chemistry: 08/21/20 14:10 08/21/20 14:10 Orders, Labs, Meds: Lab Review 08/21/20 08/21/20 08/21/20 14:00 14:10 14:10 WBC 8.81 RBC 5.48 H Hgb 12.1 Hct 40.5 MCV 73.9 L MCH 22.1 L MCHC 29.9 L RDW Coeff of Anastasia 18.6 H Plt Count 230 Immature Gran % (Auto) 0.5 Neut % (Auto) 82.2 H Lymph % (Auto) 11.2 [place] % (Auto) 5.4 Eos % (Auto) 0.2 Baso % (Auto) 0.5 Neut # (Auto) 7.2 H Lymph # (Auto) 1.0 [place] # (Auto) 0.5 Eos # (Auto) 0.0 Baso # (Auto) 0.0 Immature Gran # (Auto) 0.0 Sodium 132.9 L Potassium 3.42 L Chloride 97.5 L Carbon Dioxide 29.3 Anion Gap 9.52 BUN 10.0 Creatinine 0.92 Estimated GFR (MDRD) 71.00 BUN/Creatinine Ratio 10.86 Glucose 130.3 H Calcium 9.16 Total Bilirubin 0.73 AST 54.4 H ALT 38.4 H Alkaline Phosphatase 102.5 Troponin I 0.084 Total Protein 7.11 Albumin 3.56 Globulin 3.55 Albumin/Globulin Ratio 1.00 Urine Color Urine Clarity Urine pH Ur Specific [place] Urine Protein Urine Glucose (UA) Urine Ketones Urine Blood Urine Nitrite Urine Bilirubin Urine Urobilinogen Ur Leukocyte Esterase Urine Microscopic RBC Urine Microscopic WBC Ur Squamous Epith Cells Urine Mucus Urine Test Negative Urine Opiates Screen Ur Oxycodone Screen Urine Methadone Screen Ur Propoxyphene Screen Ur Barbiturates Screen U Tricyclic Antidepress Ur Phencyclidine Scrn Ur Amphetamine Screen U Methamphetamines Scrn U Benzodiazepines Scrn Urine Cocaine Screen U Cannabinoids Screen Adenovirus (PCR) B. pertussis DNA (PCR) B.parapertussis DNA PCR C. pneumoniae DNA (PCR) Coronavirus OC43 (PCR) Coronavirus HKU1 (PCR) Coronavirus 229E (PCR) Coronavirus NL63 (PCR) Human Metapneumovir PCR Influenza Type A (PCR) Influenza B (RT-PCR) M. pneumoniae (PCR) Parainfluenza 1 (PCR) Parainfluenza 2 (PCR) Parainfluenza 3 (PCR) Parainfluenza 4 (PCR) RSV (PCR) Entero/Rhino (PCR) SARS-CoV-2 (PCR) 08/21/20 08/21/20 08/21/20 14:31 14:31 16:00 WBC RBC Hgb Hct MCV MCH MCHC RDW Coeff of Anastasia Plt Count Immature Gran % (Auto) Neut % (Auto) Lymph % (Auto) Sioux % (Auto) Eos % (Auto) Baso % (Auto) Neut # (Auto) Lymph # (Auto) [place] # (Auto) Eos # (Auto) Baso # (Auto) Immature Gran # (Auto) Sodium Potassium Chloride Carbon Dioxide Anion Gap BUN Creatinine Estimated GFR (MDRD) BUN/Creatinine Ratio Glucose Calcium Total Bilirubin AST ALT Alkaline Phosphatase Troponin I Total Protein Albumin Globulin Albumin/Globulin Ratio Urine Color Yellow Urine Clarity Clear Urine pH 7.5 Ur Specific [place] 1.025 Urine Protein 3+ H Urine Glucose (UA) Negative Urine Ketones Negative Urine Blood Negative Urine Nitrite Negative Urine Bilirubin Negative Urine Urobilinogen 1.0 H Ur Leukocyte Esterase 1+ H Urine Microscopic RBC 0-2 Urine Microscopic WBC 2-5 Ur Squamous Epith Cells 10-20 Urine Mucus 1+ Urine Test Urine Opiates Screen Negative Ur Oxycodone Screen Negative Urine Methadone Screen Negative Ur Propoxyphene Screen Negative Ur Barbiturates Screen Negative U Tricyclic Antidepress Negative Ur Phencyclidine Scrn Negative Ur Amphetamine Screen Positive H U Methamphetamines Scrn Positive H U Benzodiazepines Scrn Negative Urine Cocaine Screen Negative U Cannabinoids Screen Positive H Adenovirus (PCR) Not detected B. pertussis DNA (PCR) Not detected B.parapertussis DNA PCR Not detected C. pneumoniae DNA (PCR) Not detected Coronavirus OC43 (PCR) Not detected Coronavirus HKU1 (PCR) Not detected Coronavirus 229E (PCR) Not detected Coronavirus NL63 (PCR) Not detected Human Metapneumovir PCR Not detected Influenza Type A (PCR) Not detected Influenza B (RT-PCR) Not detected M. pneumoniae (PCR) Not detected Parainfluenza 1 (PCR) Not detected Parainfluenza 2 (PCR) Not detected Parainfluenza 3 (PCR) Not detected Parainfluenza 4 (PCR) Not detected RSV (PCR) Not detected Entero/Rhino (PCR) Not detected SARS-CoV-2 (PCR) Not detected Orders Category Date Time Status EKG-(ED ONLY) Stat CARDIO 08/21/20 13:28 Completed EKG-(IP & OP ONLY) Routine CARDIO 08/21/20 19:10 Completed INTAKE & OUTPUT Q8HR CARE 08/21/20 19:09 Active VITAL SIGNS Q4HR CARE 08/21/20 19:10 Active REGULAR DIET DIETARY 08/21/20 Breakfast Ordered IV [ED IV/MEDIPORT/POWERPORT] .ONCE EMERGENCY 08/21/20 13:28 Active CBC W/ AUTO DIFF DAILY@0600 LAB 08/22/20 06:00 Ordered CBC W/ AUTO DIFF DAILY@0600 LAB 08/23/20 06:00 Ordered CBC W/ AUTO DIFF Stat LAB 08/21/20 14:10 Completed CMP [COMPREHENSIVE METABOLIC PANEL] Stat LAB 08/21/20 14:10 Completed COMPREHENSIVE METABOLIC PANEL DAILY@0600 LAB 08/22/20 06:00 Ordered COMPREHENSIVE METABOLIC PANEL DAILY@0600 LAB 08/23/20 06:00 Ordered RESPIRATORY PANEL 2.1 (PCR) Stat LAB 08/21/20 16:00 Completed TROPONIN I Stat LAB 08/21/20 14:10 Completed UA [URINALYSIS C & S IF INDICATED] Stat LAB 08/21/20 14:31 Completed URINE DRUG SCREEN (RAPID FOR ED) [DRUG SCREEN, URINE, LAB 08/21/20 14:31 Completed RAPID] Stat URINE Stat LAB 08/21/20 14:00 Completed 0.9 % Sodium Chloride [Saline Flush] MEDS 08/21/20 13:28 Discontinued 1 syr IVF PRN PRN Acetaminophen [Tylenol] MEDS 08/21/20 19:09 Active 650 mg PO Q4H PRN Amlodipine Besylate [Norvasc] MEDS 08/21/20 18:27 Discontinued 10 mg PO ONCE STA Clonidine HCl [Catapres] MEDS 08/21/20 21:00 Active 0.2 mg PO BID Clonidine HCl [Catapres] MEDS 08/21/20 13:28 Discontinued 0.2 mg PO ONCE STA Diazepam [Valium] MEDS 08/21/20 21:00 Active 5 mg PO BID Diazepam [Valium] MEDS 08/21/20 14:59 Discontinued 5 mg PO ONCE STA Enalaprilat Dihydrate [Vasotec IV] MEDS 08/21/20 15:27 Discontinued 1.25 mg IVP ONCE STA Labetalol HCl [Trandate] MEDS 08/21/20 13:31 Discontinued 10 mg IVP ONCE STA Nicardipine in NaCl, Iso-Osm [Cardene 20 mg/200 ml NaCl MEDS 08/21/20 16:30 Active ] 20 mg in 200 ml IV TITRATION Potassium Chloride in 0.9%NaCl [Sodium Chloride 0.9%- MEDS 08/21/20 19:30 Active KCl 20 Meq] 1,000 ml IV 30 mls/hr Sodium Chloride 0.9% [Sodium Chloride] 1,000 ml MEDS 08/21/20 16:53 Discontinued IV 30 mls/hr RESUSCITATION STATUS Routine OTHERS 08/21/20 19:09 Ordered CHEST, 1V AP ONLY Stat RADS 08/21/20 13:28 Completed Medications Generic Name Dose Route Start Last Admin Trade Name Freq PRN Reason Stop Dose Admin Acetaminophen 650 mg 08/21/20 19:09 Acetaminophen 325 Mg Tablet PO Q4H PRN Pain Clonidine 0.2 mg 08/21/20 21:00 08/21/20 20:17 Clonidine Hcl 0.1 Mg Tablet PO 0.2 mg BID ARMOND Administration Diazepam 5 mg 08/21/20 21:00 08/21/20 20:17 Diazepam 5 Mg Tablet PO 5 mg BID ARMOND Administration Hydrochlorothiazide 25 mg 08/21/20 21:00 08/21/20 20:30 Hydrochlorothiazide 25 Mg Tablet PO 25 mg BEDTIME ARMOND Administration Nicardipine/Sodium Chloride 20 mg in 200 mls @ 50 mls/hr 08/21/20 16:30 08/21/20 17:57 Cardene 20 Mg/200 Ml Nacl IV 0 mg/hr TITRATION ARMOND 0 mls/hr Titration Protocol 5 MG/HR Potassium Chloride/Sodium Chloride 1,000 mls @ 30 mls/hr 08/21/20 19:30 08/21/20 20:17 Sodium Chloride 0.9%-Kcl 20 Meq IV 30 mls/hr .[id number] ARMOND Administration Lisinopril 20 mg 08/21/20 21:00 08/21/20 20:30 Lisinopril 10 Mg Tablet PO 20 mg BEDTIME ARMOND Administration Discontinued Medications Generic Name Dose Route Start Last Admin Trade Name Dami PRN Reason Stop Dose Admin Amlodipine Besylate 10 mg 08/21/20 18:27 08/21/20 18:33 Amlodipine Besylate 5 Mg Tablet PO 08/21/20 18:28 10 mg ONCE STA Administration Clonidine 0.2 mg 08/21/20 13:28 08/21/20 14:14 Clonidine Hcl 0.1 Mg Tablet PO 08/21/20 13:29 0.2 mg ONCE STA Administration Diazepam 5 mg 08/21/20 14:59 08/21/20 15:39 Diazepam 5 Mg Tablet PO 08/21/20 15:00 5 mg ONCE STA Administration Enalaprilat 1.25 mg 08/21/20 15:27 08/21/20 15:40 Enalaprilat Dihydrate 1.25 Mg/Ml Vial IVP 08/21/20 15:28 1.25 mg ONCE STA Administration Sodium Chloride 1,000 mls @ 30 mls/hr 08/21/20 16:53 08/21/20 18:17 Sodium Chloride IV 08/23/20 02:12 30 mls/hr .[id number] STA Administration Labetalol HCl 10 mg 08/21/20 13:31 08/21/20 14:15 Labetalol Hcl 20 Mg/4 Ml Disp.Syrin IVP 08/21/20 13:32 10 mg ONCE STA Administration Sodium Chloride 1 syr 08/21/20 13:28 08/21/20 15:40 0.9% Sodium Chloride 10 Ml Disp.Syrin IVF 1 syr PRN PRN Administration To flush IV Vital Signs: Temp Pulse Resp BP Pulse Ox 08/21/20 13:25 124 H 220/160 H 08/21/20 13:03 97.5 F L 127 H 20 227/167 H 98 TORI Risk Score TORI Risk Score: Risk Score Odds of by 30D 0 0.1 (0.1-0.2) 1 0.3 (0.2-0.3) 2 0.4 (0.3-0.5) 3 0.7 (0.6-0.9) 4 1.2 (1.0-1.5) 5 2.2 (1.9-2.6) 6 3.0 (2.5-3.6) 7 4.8 (3.8-6.1) Discharge Plan Discharge Patient Disposition: PLACED OBSERVATION Discharge Problem: Hypertensive emergency, Substance abuse ED Provider: SAUL PAVON Condition: Fair Physician Progress Note: []Cardene admin IV and titrated with excellent BP response to 140/80. Decreased infusion /Initiated Amlodipine 10 mg po after 30 min with BP started rising again to 160/108 Patient insisting on discharge due to visitation arrangement with her children tomorrow. States her public speaker will take her to [facility]. After discussing her condition and BP readings again patient advised she agreed to be placed in observation as long as she could be discharged by mid morning to get home for her scheduled home visit with her children. Orders written
[2020-08-21 14:59] LABS: URINE PREGNANCY TEST NEGATIVE (NEGATIVE)
[2020-08-21] MEDS ORDERED: VALIUM PO STA (14:59)
[2020-08-21] MEDS ORDERED: VASOTEC IV IVP STA (15:27)
[2020-08-21] MEDS ORDERED: HYDRALAZINE HCL IVP STA (15:28)
[2020-08-21] MEDS ORDERED: CARDENE 20 MG/200 ML NACL 20 MG/200 ML BAG IV SCH (16:30)
[2020-08-21] MEDS ORDERED: SODIUM CHLORIDE 1,000 ML IV STA (16:53)
[2020-08-21] MEDS ORDERED: NORVASC PO STA ×2 (18:19→18:27)
[2020-08-21] MEDS ORDERED: TYLENOL PO PRN (19:09)
[2020-08-21] MEDS ORDERED: CATAPRES PO SCH (19:30)
[2020-08-21] MEDS ORDERED: SODIUM CHLORIDE 0.9%-KCL 20 MEQ 1,000 ML IV SCH (19:30)
[2020-08-21] MEDS ORDERED: POTASSIUM CHLORIDE 10 MEQ VIAL- ADDITIVE ONLY 10 MEQ in SODIUM CHLORIDE 1,000 ML IV STA (19:37)
[2020-08-21 20:09] VITALS: BMI 25.2
[2020-08-21] MEDS: VALIUM PO SCH (20:17)
[2020-08-21] MEDS: CATAPRES PO SCH (20:17)
[2020-08-21] MEDS ORDERED: HYDROCHLOROTHIAZIDE PO SCH (21:00)
[2020-08-21] MEDS ORDERED: ZESTRIL PO SCH (21:00)
[2020-08-22 05:40] LABS: BASOPHILS % (AUTO) 0.4 % (0.0-3.0); EOSINOPHILS # (AUTO) 0.1 K/ul (0.0-0.7); EOSINOPHILS % (AUTO) 0.5 % (0.0-7.0); HEMATOCRIT 39.9 % (37.0-47.0); HEMOGLOBIN 11.8 g/dl (12.0-16.0); IMMATURE GRANULOCYTE % (AUTO) 0.2 % (0.0-5.0); LYMPHOCYTES # (AUTO) 1.4 K/uL (0.60-3.4); LYMPHOCYTES % (AUTO) 14.8 (10.0-50.0); MEAN CORPUSCULAR HEMOGLOBIN 22.1 pg (27.0-31.0); MEAN CORPUSCULAR HGB CONC 29.6 (31.8-35.4); MEAN CORPUSCULAR VOLUME 74.7 fl (81.0-99.0); MONOCYTES # (AUTO) 0.8 K/uL (0.4-2.0); MONOCYTES % (AUTO) 8.5 (0-10); NEUTROPHILS # (AUTO) 7.1 K/ul (2.0-6.9); NEUTROPHILS % (AUTO) 75.6 % (42.2-75.2); PLATELET COUNT 228 10^3/uL (140-440); RDW COEFFICIENT OF VARIATION 18.4 % (11.6-14.8); RED BLOOD COUNT 5.34 10^6/ul (4.20-5.40); WHITE BLOOD COUNT 9.45 K/ul (4.6-10.2)
[2020-08-22 06:08] LABS: ALBUMIN 2.8 g/dL (3.5-5.0); BILIRUBIN,TOTAL 0.6 mg/dL (0.2-1.3); POTASSIUM 3.1 mmol/L (3.5-5.1)
[2020-08-22] MEDS: CATAPRES PO SCH (08:11)
[2020-08-22] MEDS: VALIUM PO SCH (08:12)
[2020-08-22] MEDS ORDERED: NORVASC PO SCH (09:00)
[2020-08-22 10:16] VITALS: BP 132/91; TEMP 97.6
[2020-08-22] MEDS ORDERED: ROCEPHIN 1 GM VIAL IM STA (11:12)
[2020-08-22] MEDS ORDERED: LIDOCAINE HCL 1% SDV IM STA (11:12)
[2020-08-22] MEDS ORDERED: K-DUR PO STA (11:12)
--- NOTE | 2020-08-22 11:23 | PCM.PROG ---
Objective: Vitals: T=97.6 F, P=95, R=16, ZR=330/91, SPO2=97 HEENT: []wnl Neck: []supple Lungs: [] chest was clear CVS: []RRR Abdomen: []benign Extremities: []no acute abnormality Neurological: []non-focal Skin: [] no acute abnormality. Lab/Tests/Diagnostic Imaging: [] Hypokalemia, UTI noted. Pt was lying comfortably in bed. She will be discharged home. Diagnosis: Hypertension uncontrolled. 2. Hypokalemia. 3. UTI. Plan: Pt was encouraged to seek PMD f/u in 1-2 days. Rx K-dur, Bactrim, Clonidine. BP meds were called in via Dr Encarnacion.
--- NOTE | 2020-08-22 11:26 | PCM.DC ---
Final Diagnosis: 1. Uncontrolled HTN 2. Hypokalemia. 3. UTI. 4. Substance Abuse. Medications at Discharge: Ambulatory Orders Medication Instructions Recorded clonidine HCl 0.2 mg PO BID 90 Days #180 tablet 02/27/19 hydrochlorothiazide 25 mg PO DAILY 90 Days #90 tablet 02/27/19 lisinopril [Prinivil] 20 mg PO DAILY 90 Days #90 tablet 02/27/19 amlodipine 10 mg PO DAILY #14 tab 08/21/20 clonidine HCl 0.2 mg PO BID #20 tab 08/21/20 Add PO Kdur 20meq bid #20 PO Bactrim DS bid #20
--- NOTE | 2020-08-27 08:20 | PCM.DC ---
Final Diagnosis: Hypertension. UTI Medications at Discharge: Ambulatory Orders Medication Instructions Recorded clonidine HCl 0.2 mg PO BID 90 Days #180 tablet 02/27/19 hydrochlorothiazide 25 mg PO DAILY 90 Days #90 tablet 02/27/19 lisinopril [Prinivil] 20 mg PO DAILY 90 Days #90 tablet 02/27/19 amlodipine 10 mg PO DAILY #14 tab 08/21/20 clonidine HCl 0.2 mg PO BID #20 tab 08/21/20 potassium chloride 20 meq PO DAILY #20 tab 08/22/20 sulfamethoxazole-trimethoprim 1 tab PO BID #20 tab 08/22/20 [Bactrim]
--- NOTE | 2020-09-20 21:43 | PCM.DC ---
Final Diagnosis: Hypertensive Emergency Medications at Discharge: Ambulatory Orders Medication Instructions Recorded clonidine HCl 0.2 mg PO BID 90 Days #180 tablet 02/27/19 hydrochlorothiazide 25 mg PO DAILY 90 Days #90 tablet 02/27/19 lisinopril [Prinivil] 20 mg PO DAILY 90 Days #90 tablet 02/27/19 amlodipine 10 mg PO DAILY #14 tab 08/21/20 potassium chloride 20 meq PO DAILY #20 tab 08/22/20 sulfamethoxazole-trimethoprim 1 tab PO BID #20 tab 08/22/20 [Bactrim]
--- NOTE | 2020-09-20 21:52 | PCM.DC ---
Final Diagnosis: Hypertensive emergency Medications at Discharge: Ambulatory Orders Medication Instructions Recorded clonidine HCl 0.2 mg PO BID 90 Days #180 tablet 02/27/19 hydrochlorothiazide 25 mg PO DAILY 90 Days #90 tablet 02/27/19 lisinopril [Prinivil] 20 mg PO DAILY 90 Days #90 tablet 02/27/19 amlodipine 10 mg PO DAILY #14 tab 08/21/20 potassium chloride 20 meq PO DAILY #20 tab 08/22/20 sulfamethoxazole-trimethoprim 1 tab PO BID #20 tab 08/22/20 [Bactrim]
--- NOTE | 2020-09-22 15:32 | PCM.DC ---
Final Diagnosis: Hypertensive emergency Reason for Hospitalization: Elevated BP which was not moderated with ED treatment. Prognosis at Discharge: Pt should recover to normal BP status. Condition at Discharge: Stable. Medications at Discharge: Ambulatory Orders Medication Instructions Recorded clonidine HCl 0.2 mg PO BID 90 Days #180 tablet 02/27/19 hydrochlorothiazide 25 mg PO DAILY 90 Days #90 tablet 02/27/19 lisinopril [Prinivil] 20 mg PO DAILY 90 Days #90 tablet 02/27/19 amlodipine 10 mg PO DAILY #14 tab 08/21/20 potassium chloride 20 meq PO DAILY #20 tab 08/22/20 sulfamethoxazole-trimethoprim 1 tab PO BID #20 tab 08/22/20 [Bactrim] Lab/Diagnostics: See labs Education Provided to Patient and Family: Please see discharge instructions. Follow-ups: PMD in 1-2 days. Discharge Disposition: Home Hospital Course: Pt BP was controlled with meds and she was stable in the hospital. Plan: Home with Rx as above.
== END 2020-08-22 12:40 | disposition home or self-care (01) ==
LOC: ED 13:03 → MEDSURG A 13:03
PROVIDERS: ADMIT Emergency Medicine; ATTEND Emergency Medicine
DX: R53.1 Weakness; R42 Dizziness and giddiness; F41.9 Anxiety disorder, unspecified; E51.9 Thiamine deficiency, unspecified; Z20.822 Contact with and (suspected) exposure to COVID-19; R06.02 Shortness of breath; I10 Essential (primary) hypertension

== ENCOUNTER 2020-08-28 13:27 | Inpatient (IN) ==
[2020-08-28 13:37] VITALS: BMI 27.6
[2020-08-28] MEDS ORDERED: VENTOLIN HFA (PER PUFF-WITH SPACER) IH STA (14:15)
[2020-08-28] MEDS ORDERED: SODIUM CHLORIDE 500 ML IV STA (14:15)
[2020-08-28] MEDS ORDERED: SOLU-MEDROL 125 MG IVP STA (14:15)
[2020-08-28] MEDS ORDERED: ATROVENT HFA INHALER (PER PUFF-WITH SPACER) IH STA (14:15)
[2020-08-28 14:34] LABS: BASOPHILS % (AUTO) 0.6 % (0.0-3.0); EOSINOPHILS % (AUTO) 0.6 % (0.0-7.0); HEMATOCRIT 38.2 % (37.0-47.0); HEMOGLOBIN 11.6 g/dl (12.0-16.0); IMMATURE GRANULOCYTE % (AUTO) 0.3 % (0.0-5.0); LYMPHOCYTES % (AUTO) 16.1 (10.0-50.0); MEAN CORPUSCULAR HEMOGLOBIN 22.1 pg (27.0-31.0); MEAN CORPUSCULAR HGB CONC 30.4 (31.8-35.4); MEAN CORPUSCULAR VOLUME 72.8 fl (81.0-99.0); MONOCYTES # (AUTO) 0.6 K/uL (0.4-2.0); MONOCYTES % (AUTO) 10.2 (0-10); NEUTROPHILS # (AUTO) 4.5 K/ul (2.0-6.9); NEUTROPHILS % (AUTO) 72.2 % (42.2-75.2); PLATELET COUNT 340 10^3/uL (140-440); RDW COEFFICIENT OF VARIATION 18.6 % (11.6-14.8); RED BLOOD COUNT 5.25 10^6/ul (4.20-5.40)
[2020-08-28 14:47] LABS: ALANINE AMINOTRANSFERASE 33.6 U/L (0-35); ALKALINE PHOSPHATASE 119.1 U/L (38-126); BILIRUBIN,TOTAL 0.45 mg/dL (0.2-1.3); BLOOD UREA NITROGEN 14.7 mg/dL (7-17); CALCIUM 9.01 mg/dL (8.4-10.2); CARBON DIOXIDE 30.3 mmol/L (22-30.0); CHLORIDE 98.3 mmol/L (98-107); CREATININE 0.81 mg/dL (0.60-1.30); GLUCOSE 114.7 mg/dL (74-106); POTASSIUM 3.32 mmol/L (3.5-5.1); SODIUM 134.2 mmol/L (134.5-145); TOTAL PROTEIN 6.85 g/dL (6.3-8.2)
[2020-08-28 14:51] LABS: BLOOD ALCOHOL < 10.0 mg/dL (0.0-50.0)
[2020-08-28 14:52] LABS: SERUM PREGNANCY NEGATIVE (NEGATIVE)
--- NOTE | 2020-08-28 14:56 | ED.PDOC ---
General ED Provider: Dr. XOCHITL OWENS MD Chief Complaint: Cough Stated Complaint: chest wall pain on deep breaths Time Seen by Provider: 08/28/20 13:32 Mode of Arrival: Walk-In Information Source: Patient Nursing and Triage Documentation Reviewed and Agree: Yes Does patient meet sepsis criteria?: No System Inflammatory Response Syndrome: Not Applicable Sepsis Protocol: For patient's 13 years and over: Temp is 96.8 and below OR 101 and greater Pulse >90 BPM Resp >20/minute Acutely Altered Mental Status Are patient's symptoms suggestive of a new infection, such as: -Pneumonia -Skin, Soft Tissue -Endocarditis -UTI -Bone, Joint Infection -Implantable Device -Acute Abdominal Infection -Wound Infection -Meningitis -Blood Stream Catheter Infection -Unknown Respiratory Complaint Exam Respiratory Complaint/Exam Onset/Duration: 2 days Symptoms Are: Still present Timing: Constant Initial Severity: Mild Current Severity: Moderate Location: Nose Character: Reports Bronchospastic cough Aggravating: Reports None Alleviating: Reports None Associated Signs and Symptoms: Reports Chills, Chest pain, Pleuritic chest pain, Wheezing and URI History of Healthcare-Acquired Pneumonia: No Cardiac Risk Factors: Reports Smoking and Hypertension Home Oxygen Use: No Current Antibiotic Use: No Current Asthma Medication Use: No Respiratory Distress: None Inadequate Respiratory Effort: No Dysphagia Present: No Stridor Present: No JVD Present: No Accessory Muscle Use: No Retractions: Not Present Diminished Breath Sounds: No Sinus Tenderness: None Grunting Respirations: No Kussmaul Respirations: No Differential Diagnoses: Chest Wall Pain, COPD Exacerbation, Pneumonia, SARS, Bronchitis, Bronchospasm, URI and Influenza Review of Systems Review Of Systems Constitutional: Reports No symptoms Eyes: Reports No symptoms Ears, Nose, Mouth, Throat: Reports No symptoms Respiratory: Reports Cough and Wheezing Cardiac: Reports Chest pain and Palpitations GI: Reports No symptoms : Reports No symptoms Skin: Reports No symptoms Neurological: Reports No symptoms Endocrine: Reports No symptoms Hematologic/Lymphatic: Reports No symptoms All Other Systems: Reviewed and Negative [facility] Medical History (Updated 08/28/20 @ 16:08 by XOCHITL OWENS MD) Chest pain Chronic hepatitis C Hypertension Medical non-compliance Nausea Other specified events, undetermined intent, initial encounter Family History Mother No problems noted. Other Hypotension Social History Smoking and tobacco status: Current every day smoker Tobacco type: cigarettes Tobacco: How many years used: 20 Quit status: not considering quitting Alcohol intake: never History of recent travel: No Surgical History History of section Status post cholecystectomy Female Reproductive History Menstrual Hx Hysterectomy: No Hx Tubal Ligation: No Physical Exam Physical Exam Appearance: Reports No pain distress and Well-nourished Ill-appearing: None Pain Distress: None Eyes: Reports BRAULIO, EOMI and Conjunctiva clear ENT: Reports Ears normal, Nose normal and Oropharynx normal Neck: Supple Respiratory: Reports Airway patent, Breath sounds equal, Respirations nonlabored, Rhonchi and Wheezes Cardiovascular: Reports Pulses normal, No rub, No murmur and Tachycardia GI/: Reports Soft, Nontender, No masses, Bowel sounds normal and No Organomegaly Musculoskeletal: Reports Normal strength, ROM intact and Edema (minimal chronic ankle and feet swelling) Skin: Reports Warm, Dry and Normal color Neurological: Reports Sensation intact, Motor intact, Reflexes intact, Cranial nerves intact, Alert and Oriented Psychiatric: Reports Affect appropriate and Mood appropriate Interpretation Radiology Interpretation Radiology Interpretation By: Radiologist Exam Interpreted: Portable CXR EKG Interpretation Time of EKG #1: 14:51 Rate: Tachy Rhythm: Sinus Ectopy: None [place]: [place] ST Segment: Normal Interpretation: no acute ST or T wave changes. Re-Evaluation Re-Evaluation Time of Re-Evaluation: 15:09 Critical Care Note Critical Care Note Total Critical Care Time (mins): 30 Course Course Hematology/Chemistry: 08/28/20 14:34 08/28/20 14:34 Orders, Labs, Meds: Lab Review 08/28/20 08/28/20 08/28/20 14:34 14:34 14:34 WBC 6.20 RBC 5.25 Hgb 11.6 L Hct 38.2 MCV 72.8 L MCH 22.1 L MCHC 30.4 L RDW Coeff of Anastasia 18.6 H Plt Count 340 Immature Gran % (Auto) 0.3 Neut % (Auto) 72.2 Lymph % (Auto) 16.1 [place] % (Auto) 10.2 H Eos % (Auto) 0.6 Baso % (Auto) 0.6 Neut # (Auto) 4.5 Lymph # (Auto) 1.0 [place] # (Auto) 0.6 Eos # (Auto) 0.0 Baso # (Auto) 0.0 Immature Gran # (Auto) 0.0 Puncture Site Base Excess O2 Saturation ABG pH ABG pCO2 ABG pO2 ABG HCO3 ABG Total CO2 Blayne Test Hemoglobin Oxyhemoglobin Carboxyhemoglobin Total Hemoglobin FiO2 % Sodium 134.2 L Potassium 3.32 L Chloride 98.3 Carbon Dioxide 30.3 H Anion Gap 8.92 BUN 14.7 Creatinine 0.81 Estimated GFR (MDRD) 82.00 BUN/Creatinine Ratio 18.14 Glucose 114.7 H Lactic Acid 1.28 Calcium 9.01 Total Bilirubin 0.45 AST 59.0 H ALT 33.6 Alkaline Phosphatase 119.1 Troponin I 0.083 Total Protein 6.85 Albumin 3.30 L Globulin 3.55 Albumin/Globulin Ratio 0.92 Serum , Qual Plasma/Serum Alcohol < 10.0 08/28/20 08/28/20 14:34 15:11 WBC RBC Hgb Hct MCV MCH MCHC RDW Coeff of Anastasia Plt Count Immature Gran % (Auto) Neut % (Auto) Lymph % (Auto) [place] % (Auto) Eos % (Auto) Baso % (Auto) Neut # (Auto) Lymph # (Auto) [place] # (Auto) Eos # (Auto) Baso # (Auto) Immature Gran # (Auto) Puncture Site R rad Base Excess 6.6 H O2 Saturation 98.1 H ABG pH 7.54 H* ABG pCO2 34.0 L ABG pO2 94.0 ABG HCO3 29.1 H ABG Total CO2 30.1 H Blayne Test Y Hemoglobin 0.8 Oxyhemoglobin 94.6 L Carboxyhemoglobin 3.0 H Total Hemoglobin 12.3 FiO2 % 21.0 Sodium Potassium Chloride Carbon Dioxide Anion Gap BUN Creatinine Estimated GFR (MDRD) BUN/Creatinine Ratio Glucose Lactic Acid Calcium Total Bilirubin AST ALT Alkaline Phosphatase Troponin I Total Protein Albumin Globulin Albumin/Globulin Ratio Serum , Qual Negative Plasma/Serum Alcohol Orders Category Date Time Status ABG DRAW REQUEST Stat CARDIO 08/28/20 14:14 Completed EKG-(ED ONLY) Stat CARDIO 08/28/20 14:10 Completed METERED DOSE INHALATION Routine CARDIO 08/28/20 14:16 Completed ED IV/MEDIPORT/POWERPORT .ONCE EMERGENCY 08/28/20 14:10 Active ABG COOX Stat LAB 08/28/20 15:11 Completed BLOOD ALCOHOL Stat LAB 08/28/20 14:34 Completed BLOOD CULTURE (ED ONLY) Stat LAB 08/28/20 14:30 Ordered CBC W/ AUTO DIFF Stat LAB 08/28/20 14:34 Completed COMPREHENSIVE METABOLIC PANEL Stat LAB 08/28/20 14:34 Completed DRUG SCREEN, URINE, RAPID Stat LAB 08/28/20 14:15 Uncollected LACTIC ACID Stat LAB 08/28/20 14:34 Completed LACTIC ACID Stat LAB 08/28/20 15:53 Ordered RESPIRATORY PANEL 2.1 (PCR) Stat LAB 08/28/20 Ordered SERUM Stat LAB 08/28/20 14:34 Completed TROPONIN I Stat LAB 08/28/20 14:34 Completed URINALYSIS C & S IF INDICATED Stat LAB 08/28/20 14:15 Uncollected 0.9 % Sodium Chloride [Saline Flush] MEDS 08/28/20 14:10 Active 1 syr IVF PRN PRN Albuterol Inhaler(with Spacer) [Ventolin Hfa (Per Puff- MEDS 08/28/20 14:15 Discontinued with Spacer)] 2 puff IH ONCE STA Azithromycin [Zithromax] MEDS 08/28/20 15:53 Discontinued 500 mg PO ONCE STA Ceftriaxone/D5w 1 gm Premix [Rocephin 1 gm/50 ml D5w] MEDS 08/28/20 15:53 Active 1 gm in 50 ml IV ONCE Clonidine HCl [Catapres] MEDS 08/28/20 15:09 Discontinued 0.2 mg PO ONCE STA Ipratropium Inhaler(Spacer) [Atrovent Hfa Inhaler (Per MEDS 08/28/20 14:15 Discontinued Puff-with Spacer)] 2 puff IH ONCE STA Methylprednisolone Sod Succ/Pf [Solu-Medrol 125 mg] MEDS 08/28/20 14:15 Discontinued 125 mg IVP ONCE STA Metoprolol Tartrate [Lopressor] MEDS 08/28/20 15:51 Discontinued 2.5 mg IVP ONCE STA Morphine Sulfate [Morphine 2 mg/ml Syringe] MEDS 08/28/20 15:53 Discontinued 2 mg IVP ONCE STA Ondansetron HCl/Pf [Zofran 4 mg/2 ml] MEDS 08/28/20 15:11 Discontinued 4 mg IVP ONCE STA Potassium Chloride [K-Dur] MEDS 08/28/20 15:11 Discontinued 40 meq PO ONCE STA Sodium Chloride 0.9% [Sodium Chloride] 1,000 ml MEDS 08/28/20 15:09 Active IV BOLUS Sodium Chloride 0.9% [Sodium Chloride] 500 ml MEDS 08/28/20 14:15 Discontinued IV BOLUS CHEST, 1V AP ONLY Stat RADS 08/28/20 14:10 Completed Medications Generic Name Dose Route Start Last Admin Trade Name Freq PRN Reason Stop Dose Admin Sodium Chloride 1,000 mls @ 1,000 mls/hr 08/28/20 15:09 08/28/20 15:58 Sodium Chloride IV 08/28/20 16:08 1,000 mls/hr BOLUS STA Administration CEFTRIAXONE/D5W 1 GM PREMIX 1 gm in 50 mls @ 75 mls/hr 08/28/20 15:53 Rocephin 1 Gm/50 Ml D5w IV 08/28/20 16:32 ONCE STA Sodium Chloride 1 syr 08/28/20 14:10 0.9% Sodium Chloride 10 Ml Disp.Syrin IVF PRN PRN To flush IV Discontinued Medications Generic Name Dose Route Start Last Admin Trade Name Freq PRN Reason Stop Dose Admin Albuterol Sulfate 2 puff 08/28/20 14:15 08/28/20 15:15 Albuterol Sulfate (Ventolin Hfa) 18 Gm 1 Puff With Spacer IH 08/28/20 14:16 2 puff ONCE STA Administration Azithromycin 500 mg 08/28/20 15:53 Azithromycin 250 Mg Tablet PO 08/28/20 15:54 ONCE STA Clonidine 0.2 mg 08/28/20 15:09 08/28/20 15:23 Clonidine Hcl 0.1 Mg Tablet PO 08/28/20 15:10 0.2 mg ONCE STA Administration Sodium Chloride 500 mls @ 500 mls/hr 08/28/20 14:15 08/28/20 15:31 Sodium Chloride IV 08/28/20 15:14 500 mls/hr BOLUS STA Administration Ipratropium [place] 2 puff 08/28/20 14:15 08/28/20 15:14 Ipratropium [place] 12.9 Gm Hfa Inhaler Per Puff With Spacer IH 08/28/20 14:16 2 puff ONCE STA Administration Methylprednisolone Sodium Succinate 125 mg 08/28/20 14:15 08/28/20 15:32 Methylprednisolone Sod Succ/Pf 125 Mg/2 Ml Vial IVP 08/28/20 14:16 125 mg ONCE STA Administration Metoprolol Tartrate 2.5 mg 08/28/20 15:51 08/28/20 15:56 Metoprolol Tartrate 5 Mg/5 Ml Vial IVP 08/28/20 15:52 2.5 mg ONCE STA Administration Morphine Sulfate 2 mg 08/28/20 15:53 Morphine Sulfate 2 Mg/Ml Syringe IVP 08/28/20 15:54 ONCE STA Ondansetron HCl 4 mg 08/28/20 15:11 08/28/20 15:37 Ondansetron Hcl/Pf 4 Mg/2 Ml Sdv IVP 08/28/20 15:12 4 mg ONCE STA Administration Potassium Chloride 40 meq 08/28/20 15:11 08/28/20 15:36 Potassium Chloride 20 Meq Tab PO 08/28/20 15:12 40 meq ONCE STA Administration Vital Signs: Temp Pulse Resp BP Pulse Ox 08/28/20 13:29 97.1 F L 118 H 20 226/149 H 94 L Discharge Plan Discharge Patient Disposition: ADMITTED INPATIENT Discharge Problem: Hypertensive emergency, Hypokalemia, Substance abuse, Pneumonia Prescriptions: No Action hydrochlorothiazide 25 MG tablet 25 mg PO DAILY 90 Days Qty: 90 RF: 0 lisinopril [Prinivil] 20 MG tablet 20 mg PO DAILY 90 Days Qty: 90 RF: 0 clonidine HCl 0.2 MG tablet 0.2 mg PO BID 90 Days Qty: 180 RF: 0 clonidine HCl 0.2 mg tablet 0.2 mg PO BID Qty: 20 RF: 0 amlodipine 5 mg tablet 10 mg PO DAILY Qty: 14 RF: 0 potassium chloride 20 mEq Tablet Extended Release 20 meq PO DAILY Qty: 20 RF: 0 sulfamethoxazole-trimethoprim [Bactrim] 400-80 mg Tablet 1 tab PO BID Qty: 20 RF: 0 ED Provider: XOCHITL OWENS Condition: Serious Physician Progress Note: []Labs and imaging findings were d/w the patient and she agreed to be admitted.
[2020-08-28 14:58] LABS: TROPONIN I 0.083 ng/ml (0.0000-0.120)
[2020-08-28] MEDS ORDERED: SODIUM CHLORIDE 1,000 ML IV STA (15:09)
[2020-08-28] MEDS ORDERED: CATAPRES PO STA (15:09)
[2020-08-28] MEDS ORDERED: ZOFRAN 4 MG/2 ML IVP STA (15:11)
[2020-08-28] MEDS ORDERED: K-DUR PO STA (15:11)
[2020-08-28 15:17] LABS: ABG PH 7.54 (7.35-7.45)
--- NOTE | 2020-08-28 15:36 | DI ---
EXAM: Single view of the chest. History: Short of breath, pleurisy Comparison: Chest radiograph 08/21/2020 Findings: Heart is enlarged. Right basilar consolidation and small right pleural effusion. No pneu mothorax. No acute osseous abnormalities. There may be early interstitial edema. Impression: 1. Right basilar pneumonia and small right pleural effusion. 2. Cardiomegaly with early interstitial edema
[2020-08-28] MEDS ORDERED: LOPRESSOR IVP STA ×2 (15:51→18:57)
[2020-08-28] MEDS ORDERED: ROCEPHIN 1 GM/50 ML D5W 1 GM/50 ML BAG IV STA (15:53)
[2020-08-28] MEDS ORDERED: MORPHINE 2 MG/ML SYRINGE IVP STA (15:53)
[2020-08-28] MEDS: ZITHROMAX PO STA ×2 (16:10→16:17)
[2020-08-28] MEDS ORDERED: TYLENOL PO PRN (16:26)
[2020-08-28] MEDS ORDERED: SODIUM CHLORIDE 1,000 ML IV SCH ×2 (16:30→19:06)
[2020-08-28 16:35] LABS: BILIRUBIN,URINE Negative (NEGATIVE); CLARITY,URINE Clear (CLEAR); COLOR,URINE Yellow (YELLOW); GLUCOSE, URINE (UA) Negative (NEGATIVE); KETONES,URINE Negative (NEGATIVE); LEUKOCYTE ESTERASE ,URINE Negative (NEGATIVE); NITRITE,URINE Negative (NEGATIVE); PROTEIN,URINE 3+ (NEGATIVE); URINE, BLOOD Negative (NEGATIVE)
[2020-08-28 16:36] LABS: SQUAMOUS EPITHELIAL CELL,UR 0-2 (0-5); URINE RBC, MICROSCOPIC 0-2 (0-2); URINE WBC, MICROSCOPIC 0-2 (0-2)
[2020-08-28 16:49] LABS: AMPHETAMINE SCREEN,URINE POSITIVE (NEGATIVE); BARBITURATE SCREEN,URINE NEGATIVE (NEGATIVE); BENZODIAZEPINES SCREEN,URINE POSITIVE (NEGATIVE); CANNABINOID SCREEN,URINE POSITIVE (NEGATIVE); COCAIN SCREEN,URINE NEGATIVE (NEGATIVE); METHADONE URINE SCREEN NEGATIVE (NEGATIVE); METHAMPHETAMINES SCREEN,URINE POSITIVE (NEGATIVE); OPIATE SCREEN,URINE NEGATIVE (NEGATIVE); OXYCODONE URINE SCREEN POSITIVE (NEGATIVE); PHENCYCLIDINE SCREEN,URINE NEGATIVE (NEGATIVE); PROPOXYPHENE URINE SCREEN NEGATIVE (NEGATIVE); TRICYCLIC ANTIDEPRESSANTS URIN NEGATIVE (NEGATIVE)
[2020-08-28] MEDS ORDERED: LASIX TAB PO SCH (17:00)
[2020-08-28] MEDS ORDERED: SOLU-MEDROL 125 MG IVP SCH (17:00)
[2020-08-28] MEDS ORDERED: VENTOLIN HFA (PER PUFF-WITH SPACER) IH SCH ×2 (17:00→20:00)
[2020-08-28] MEDS ORDERED: MORPHINE 2 MG/ML SYRINGE IVP SCH (17:00)
--- NOTE | 2020-08-28 19:37 | PCM.PROG ---
Objective: Vitals: T=97.1 F, P=106, R=19, NK=416/172, SPO2=91 HEENT: [] Neck: [] Lungs: [] CVS: [] Abdomen: [] Extremities: [] Neurological: [] Skin: [] Lab/Tests/Diagnostic Imaging: [] 08/28/2020 2@19:15. Pt BP was elevated. will treat with IV Lopressor 2.5 mg. Pt was endorsed to Dr Benites (ED/Hospitalist).
[2020-08-28] MEDS ORDERED: ATROVENT HFA INHALER (PER PUFF-WITH SPACER) IH SCH (20:00)
[2020-08-28] MEDS ORDERED: ATIVAN IVP STA ×2 (20:51→21:42)
[2020-08-28] MEDS ORDERED: CATAPRES PO SCH (21:00)
[2020-08-28] MEDS ORDERED: VALIUM PO SCH (21:00)
[2020-08-28] MEDS ORDERED: ZESTRIL PO STA (21:42)
[2020-08-28 21:43] VITALS: TEMP 97.5
[2020-08-28] MEDS ORDERED: LEVAQUIN 750 MG/150 ML D5W 750 MG/150 ML BAG IV SCH (22:00)
[2020-08-28] MEDS ORDERED: MAXIPIME 2 GM/50 ML D5W 2 GM/50 ML BAG IV SCH (22:00)
[2020-08-28] MEDS ORDERED: APRESOLINE PO STA (22:41)
[2020-08-28 22:45] VITALS: BP 190/124
--- NOTE | 2020-08-28 23:15 | PCM.PROG ---
S: Medical floor RN called regarding patient BP. Pt was earlier given 2.5 mg lopressor, 20 mg furosamide IV, and most recent clonidine 0.2mg PO. Dhe was placed in observation to ED service today for elevated blood pressure , CAP RLL, and positive methamphetamine urine drug screen. Currently she has no symptoms such as blurred vision, chest pain, diaphoresis, agitation, mydriasis, headache, nausea or vomiting , palpitations .Pt asked to be open with her hx - states she last used 1 month ago route - smoking. Says she missed her last 1-2 days BP meds. She stated yesterday she had a sever coughing episode and passed aout and had vomited O: Reported BP with manual measurement 192/152 Pulse 102 afebrile RR 18 HEENT - edentulous , neck supple , no thyromegaly , non icteris , YANIRA /EOMI PULM- CTAB CVS - No mumur , rub, gallop Abd - Soft non tender Skin - old scars , tattoos , erythema of toes and hand dorsum bilaterally Neuro - A/O times three, tearful over her addiction history MSC- FROM , NVM intact she ws observed getting up from chair to bed EKG - ST LAE , LVH, NSSTT changes CXR - RLL infiltate , possi interstitual edema , cardiomegaly Trop neg UA -3+ protein, had been present on prior study A 1.Hypertensive urgency - consider combination of clonidine rebound , methamphetamine withdrawal, uncontrolled hypertension 2.Methamphetamine addiction 3.proteinuria 4. Cough syncope 5 RLL infiltrate , consider aspiration pneumonia 6.Nicotine addiction P. History Physical with RN present Chart review Ativan 1mg IV times two for sympathomimetic hypertension lisinopril 20 mg po - reinstate her regular POP med Phone consult with her PCP Dr Lagos - agrees with transfer to a higher level of care (OP clinic attending ) Phone discussion with Dr Croft - hospitalist at [facility] of choice per patient - SBAR given . Requested 25 mg hydralazine PO Additional Course - patient is sleepy from ativan yet arouses well. Will transfer per ALS with tele , saline IV at 30ml/hr, records . Patient is told of the transfer We appreciate the assistance given to this patient by the [facility] Staff
--- NOTE | 2020-08-29 01:57 | PCM.HOSP ---
OBS/IP Admit/Discharge Same Day [id number] Low Severity 40 Minutes ([id number]): S: Patient was admitted for hypertensive urgency , right lower lobe infiltrate , and methamphetamine addition. ROS Smoker, denies etoh, positive for drug addiction HEENT - edentulous, no visual changes no thyroid issues Pulmonary - no asthma , no dyspnea Cardiac - hypertension, no chest pain or palpitations GI - no abd pain , N/V/D/C - denies decreased urination Neuro - denies seizures , headache O HEENT - edentulous , no thyromegaly no bruit no icterus Pulmonary - no dyspnea, rales ,rhonchi, CARDIAC - no chest pain or palpitations GI -No nausea /vomiting / diarrhea - no urinary or gynecology symptoms Neuro - no seizures or sensory - motor symptoms. Had a coughing Derm - scars and tattoos present, erythema of had dorsum and digits bilateral UL extremity Patient in the ED received oral medication for the gradual reduction of uncontrolled blood pressure , IV antibiotics for the treatment of CAP, and medications for pain and reactive airways EKG suggested mild cardiomegaly, mild interstitial fluid, small right pleural effusion and right lower lobe infiltrate. Lab Potassium was 3.3 and oral replacement was initiated. Chest film suggest RLL infiltrate and ceftriaxone and azithromycin were started. For pain morphine was administered A: Hypertensive urgency - contributing is medication noncompliance , methamphetamine use , RLL - with hx of emesis yesterday consider aspiration Methamphetamine use Nicotine use P Patient was admitted and orders written Hospital Course : Nursing contacted the ED physician on nights regarding continued elevated blood pressure. After review of the chart and exam of the patient, transfer to a higher level of care where closer monitoring of blood pressure and if needed IV drip can be administered. In addition, if needed cardiology and pulmonology would be available. The patient agreed to the transfer and requested Jessica. I gave SBAR to Dr. Croft who had the patient admitted to their ICU. We appreciate the assistance with the care of this patient.
[2020-08-29] MEDS ORDERED: ROCEPHIN 1 GM/50 ML D5W 1 GM/50 ML BAG IV SCH (09:00)
[2020-08-29] MEDS ORDERED: ZITHROMAX 500 MG in SODIUM CHLORIDE 250 ML IV SCH (09:00)
[2020-08-29] MEDS ORDERED: NORVASC PO SCH (09:00)
[2020-08-29] MEDS ORDERED: ZESTRIL PO SCH (09:00)
[2020-08-29] MEDS ORDERED: K-DUR PO SCH (09:00)
--- NOTE | 2020-09-12 08:11 | PCM.PROG ---
History of Present Illness: Admitted 08/28/20 17:31, this 30 year old /WHITE/F was admitted from the ED with right basilar pneumonia , and hypertensive urgency. She was treated with ceftriaxone and azithromycin for pneumonia. Her blood pressure was treated with clonidine and metoprolol.] Past Medical History: HTN, meth abuse, history of CHF, history of Hep C, poisoning with rat poison, history of TIA. reported cancer, ?pericardial effusion. Seizures. Poisonied with arsenic. Aneursym back of head. ectacic ascending aorta. Past Surgical History: None reported. Past Family History: hypertension. 4 children healthy. Mother allergies, heart prolbems in female <65, lipid/cholesterol disease. maternal grandmother cancer, DM, heart disease <65 yr old, lipid disease, HTN, maternal grandfather Heart disease early, HTN/Lipid issues. Past Social History: light smoker, not interested in cessation. Occasional THC. Former meth user. Edentulous. [employer], started smoking age 12. 2 soda per day. Menarche age 10, . Physical Examination: Vitals: Temperature 97.5 F, Pulse 96, Respirations 20, Blood Pressure 190/124, SPO2 96 Body Measurements: Height 5 ft 2 in, Weight 151 lb, BMI 27.6-Overweight HEENT : no icterus / yves -eomi, airway patent CVS : Sinus tach no murmur , rub, or gallop PULM :no wheeze, rhonchi, rales . Decreased breath sounds RLL GI : abd soft , tender Gyne : deferred Derm : no new rash. Erythema of hands and feet VASC: periperal pulses intact Neuro - A/O x3 Musc : FROM Allergies Allergy/AdvReac Type Severity Reaction Status Date / Time ketorolac tromethamine Allergy Severe Hives Verified 08/28/20 13:59 [From Toradol] vancomycin AdvReac Severe Unknown Verified 08/28/20 13:59 tramadol [From Ultram] AdvReac Mild Itching Verified 08/28/20 13:59 divalproex sodium AdvReac Rash Verified 08/28/20 13:59 [From Depakote] ASSESSMENT: Please see below. I was called to the medical floor to evaluate the patient. S : not feeling well, no headache ,visual changes , flank pain , confusion, chest pain, dyspnea O Hypertension persists Chest film shows cardiomegaly and early interstitual changes Drug screen was positive for amphetamine / metamphetamine A : Hypertensive urgency - consider amphetamine withdrawal with acute on chronic hypertension Right basilar pneumonia early CHF P : ICU monitoring is not available here. Discussed with Pt - she requests [facility] Discussed with hospitalist - transfer accepted (1) History of methamphetamine abuse: Status: Inactive Code(s): Z87.898 - Personal history of other specified conditions SNOMED Code(s): 915962476 (2) Hypertensive emergency: Status: Acute Code(s): I16.1 - Hypertensive emergency SNOMED Code(s): 393172005331549 (3) Hypokalemia: Status: Inactive Code(s): E87.6 - Hypokalemia SNOMED Code(s): 01740730 (4) Pneumonia: Status: Acute Code(s): J18.9 - Pneumonia, unspecified organism SNOMED Code(s): 154575337 [facility] Medical History Chest pain Chronic hepatitis C Hypertension Medical non-compliance Nausea Other specified events, undetermined intent, initial encounter Family History Mother No problems noted. Other Hypotension Social History (Updated 08/28/20 @ 17:47 by MILADYS BLUE, ENIO) Smoking and tobacco status: Current every day smoker Tobacco type: cigarettes Tobacco: How many years used: 20 Quit status: not considering quitting Alcohol intake: never Substance use type: methamphetamine History of recent travel: No Surgical History History of section Status post cholecystectomy Female Reproductive History Menstrual Hx Hysterectomy: No Hx Tubal Ligation: No
== END 2020-08-28 23:10 | disposition short-term general hospital (02) | DRG 204 ==
LOC: ED 13:27 → MEDSURG A 17:25
PROVIDERS: ADMIT Emergency Medicine; ATTEND Emergency Medicine
DX: J18.9 Pneumonia, unspecified organism; R07.89 Other chest pain; Z87.898 Personal history of other specified conditions; R06.2 Wheezing; Z20.822 Contact with and (suspected) exposure to COVID-19; E87.6 Hypokalemia; R05 Cough